=== PATIENT | female | born 1950 | race Caucasian/White ===

== ENCOUNTER → 2018-03-22 10:18 | Outpatient (CLI) | payer MEDICARE, OTHER, SELFPAY ==
[2018-03-22 10:31] LABS: Bacteria Urine None Seen; RBC Urine None Seen (0-5/HPF); WBC Urine None Seen (0-5/HPF)
[2018-03-22 11:24] LABS: Appearance Urine UA CLEAR; Bilirubin Urine UA NEGATIVE (NEGATIVE); Color Urine UA YELLOW; Glucose Urine UA NEGATIVE (Normal); Ketones Urine UA NEGATIVE (NEGATIVE); Leukocyte Esterase Urine UA NEGATIVE (NEGATIVE); Nitrite Urine UA Negative (Negative); Occult Blood Urine UA NEGATIVE (Negative); Protein Urine UA NEGATIVE (Negative); Urobilinogen Urine UA 0.2 E.U./dL (0.2); pH Urine UA 5.5 (4.5-8.0)
[2018-03-22 11:34] LABS: Culture Indicated Urine Cult Not Indicated; Urine Comments Microscopic Normal
[2018-03-22 11:54] LABS: Hematocrit 37.3 % (36-46); Hemoglobin 12.7 g/dL (12.0-16.0); Mean Corpuscular HGB Conc 33.9 % (30-36); Mean Corpuscular Hemoglobin 30.3 PG (26-34); Mean Corpuscular Volume 89.4 fL (80-100); Platelet Count 238 X10^3/uL (150-400); Red Blood Cell Count 4.18 X10^6/uL (4.0-5.2); Red Cell Distribution Width 13.3 % (11.6-14.8); White Blood Cell Count 4.9 X10^3/uL (4.5-11.0)
[2018-03-22 12:33] LABS: Alanine Aminotransferase 25 IU/L (9-52); Albumin Globulin Ratio 1.4 (1.0-2.8); Alkaline Phosphatase 55 U/L (38-126); Aspartate Aminotransferase 30 IU/L (14-36); BUN Creatinine Ratio 28.6 (6-22); Bilirubin Total 0.5 mg/dL (0.2-1.3); Bilirubin Unconjugated 0.2 mg/dL (0.0-1.1); Blood Urea Nitrogen 20 mg/dL (7-17); Calcium 9.6 mg/dL (8.4-10.2); Carbon Dioxide 29 mmol/L (22-32); Chloride 103 mmol/L (98-107); Cholesterol 227 mg/dL (140-199); Estimated Glomerular Filt Rate > 60.0 mL/min (>60); Globulin 2.8 g/dL (1.7-4.1); Glucose 94 mg/dL (80-110); HDL Cholesterol 93 mg/dL (40-60); HEMOLYSIS < 15 (0-50); LDL Cholesterol Calculated 120 mg/dL (<100); Potassium 4.1 mmol/L (3.4-5.1); Sodium 140 mmol/L (137-145); Total Protein 6.8 g/dL (6.3-8.2); Triglycerides 69 mg/dL (35-150)
[2018-03-22 12:42] LABS: Hemoglobin A1C% w Est Avg Glu 5.5 % (4.0-6.0)
[2018-03-22 12:52] LABS: TSH w/ Reflex to FT4 0.13 uIU/mL (0.47-4.68)
[2018-03-22 13:18] LABS: Free T4, Direct Thyroxine 1.73 ng/dL (0.78-2.19)
[2018-03-22 14:18] LABS: Neutrophils Absolute Manual 2352 /uL (3000-5900); Total Cells Counted 100
== END ==
PROVIDERS: Family Provider Family Medicine; PCP Family Medicine; Visit Provider Nurse Practitioner Family
DX: M25.471 Effusion, right ankle (principal); M25.472 Effusion, left ankle; R60.0 Localized edema
CPT/HCPCS: 36415; 80048; 80061; 80076; 81001; 82565; 83036; 84439; 84443; 84520; 85025

== ENCOUNTER → 2018-08-08 11:46 | Outpatient (CLI) | payer MEDICARE, OTHER, SELFPAY ==
[2018-08-08 13:54] LABS: Thyroid Stimulating Hormone 0.69 uIU/mL (0.47-4.68)
== END ==
PROVIDERS: PCP Family Medicine; Visit Provider Family Medicine
DX: E03.9 Hypothyroidism, unspecified (principal)
CPT/HCPCS: 36415; 84443

== ENCOUNTER → 2018-11-22 15:33 | Outpatient (CLI) | payer MEDICARE, OTHER, SELFPAY | PROVIDERS: Family Provider Family Medicine; PCP Family Medicine; Visit Provider Physician Assistant | DX: R68.89 Other general symptoms and signs (principal) | CPT/HCPCS: 87400 ==

== ENCOUNTER → 2019-08-06 11:40 | Outpatient (CLI) | payer MEDICARE, OTHER, SELFPAY ==
--- NOTE | 2019-08-06 11:42 | DI.RAD.S_ITS ---
PROCEDURE: XR HIP W PEL IF DONE LT 2V INDICATIONS: Left hip pain TECHNIQUE: 2 views of the hip were acquired. COMPARISON: None. FINDINGS: Bones: No fractures or dislocations. No suspicious bony lesions. The visualized pelvic ring appears intact. There are mild degenerative changes of the left hip joint as evidenced by periarticular sclerosis and osteophyte formation. Soft tissues: No suspicious soft tissue calcifications or masses. IMPRESSION: Mild degenerative changes of the left hip joint. Dictated by: Christian Abdullahi M.D. on 08/06/2019 at 14:32 Approved by: Christian Abdullahi M.D. on 08/06/2019 at 14:34
== END ==
PROVIDERS: PCP Family Medicine; Visit Provider Family Medicine
DX: M25.552 Pain in left hip (principal)
CPT/HCPCS: 73502

== ENCOUNTER 2019-11-25 10:26 | Emergency (ER) | payer MEDICARE, OTHER, SELFPAY ==
[2019-11-25 10:27] VITALS: BP 155/70; PULSE 77; RESP 16; TEMP 36.7; O2SAT 100; BMI 31.8
--- NOTE | 2019-11-25 10:41 | ED_ITS ---
HPI - Chest Pain General Chief Complaint: Chest Pain Stated Complaint: Chest Pain Time Seen by Provider: 11/25/19 10:39 Source: patient Mode of arrival: Ambulatory Limitations: no limitations History of Present Illness HPI narrative: 69-year-old female here for evaluation of left upper quadrant/left lower chest discomfort. She states that it started yesterday. Has been consistent for greater than 12 hours now. She states that it does feel somewhat better with stretching. Has had a bowel movement since the onset of the symptoms which has not changed any of her symptoms. No urinary symptoms. No nausea vomiting. Does have a history of pleurisy and pericarditis. She states this does not feel like that. No fevers. No sore throat. Has not tried anything for symptoms prior to arrival. Related Data Home Medications Medication Instructions Recorded Confirmed omeprazole 20 mg capsule,delayed 20 mg PO DAILY 03/11/18 11/25/19 release indomethacin 25 mg PO TIDP PRN 11/25/19 11/25/19 Previous Rx's Medication Instructions Recorded levothyroxine 112 mcg tablet See Rx Instructions .ROUTE 10/20/19 .COMPLEX #90 tab Allergies Allergy/AdvReac Type Severity Reaction Status Date / Time erythromycin base Allergy Unknown Verified 11/25/19 11:42 [ERYTHROMYCIN BASE] Review of Systems Constitutional Constitutional: Denies fever(s) and Denies headache(s) ENT Ears, Nose, Mouth, and Throat: Denies headache(s) Cardiovascular Cardiovascular: Reports chest pain, Denies edema, Denies leg ulcers, Denies leg edema, Denies dyspnea and Denies dyspnea on exertion Respiratory Respiratory: Denies dyspnea and Denies dyspnea on exertion Gastrointestinal Gastrointestinal: Reports abdominal pain (Left upper quadrant), Denies change in stool character, Denies nausea and Denies vomiting Musculoskeletal Musculoskeletal: Denies back pain, Denies myalgias and Denies arthralgias Integumentary/Breasts Skin/Breast: Denies lesions and Denies rash Neurologic Neurologic: Denies behavioral changes and Denies headache(s) Psychiatric Psychiatric: Denies behavioral changes Hematologic/Lymphatic Hematologic/Lymphatic: Denies easy bleeding and Denies easy bruising Patient History Medical History Hypothyroidism (acquired) (Inactive) Social History Smoking Status: Never smoker alcohol intake: current (5-6 glasses of red wine weekly) Smoking Status: Never smoker alcohol intake frequency: holidays/special occasions only Substance Use Type: does not use Exam Initial Vital Signs Initial Vital Signs: Vital Signs Temperature 98.0 F 11/25/19 10:27 Pulse Rate 77 11/25/19 10:27 Respiratory Rate 16 11/25/19 10:27 Blood Pressure 155/70 H 11/25/19 10:27 Pulse Oximetry 100 11/25/19 10:27 Const General: cooperative, comfortable, well developed and well groomed Limitations: mental status not altered HENWY Head: normal to inspection and normocephalic Resp Effort & Inspection: normal respiratory effort Auscultation: clear to auscultation bilaterally Cardio Rate: regular rate Rhythm: regular rhythm GI Inspection: non-distended Palpation: soft, No firm and tender (Mild tenderness left upper quadrant) Back/Spine/Pelvis Back: No CVA tenderness Skin Lesions: no lesions Rashes: no rashes Neuro General: alert and awake Cognition: normal cognition Speech: speech normal Extrem General: normal to inspection, capillary refill normal and No edema Psych Appearance: grossly normal and well kempt Scores HEART Score Heart Score history: Slightly Suspicious Heart Score EKG: Non-Specific repolarization disturbance Heart Score Age: > or = 65 years old Heart Score risk factors: No known risk factors Heart Score troponin: < or = to normal limit Heart Score Total: 3 Course Orders Ordered: ED Orders 11/25/19 10:35 Complete Blood Count AUTO DIFF Stat Comprehensive Metabolic Panel Stat Lipase Stat Partial Thromboplastin Time Stat Prothrombin Time INR Stat Troponin I Stat 11/25/19 10:42 XR chest 1V Stat EKG-12 Lead Stat Vital Signs Vital signs: Vital Signs - 8 hr 11/25/19 10:27 11/25/19 11:32 11/25/19 11:46 Temperature 98.0 F Pulse Rate 77 58 L 60 Respiratory Rate 16 15 12 Blood Pressure 155/70 H Blood Pressure [Left Arm] 128/61 120/58 L Pulse Oximetry 100 98 MDM - Chest Pain Lab Data Attestation: I reviewed the patient's lab results. Result diagrams: 11/25/19 10:35 11/25/19 10:35 Labs: Lab Results 11/25/19 11/25/19 11/25/19 Range/Units 10:35 10:35 10:35 WBC 5.7 (4.5-11.0) X10^3/uL RBC 4.38 (4.0-5.2) X10^6/uL Hgb 13.4 (12.0-16.0) g/dL Hct 40.4 (36-46) % MCV 92.2 (80-100) fL MCH 30.6 (26-34) PG MCHC 33.2 (30-36) % RDW 14.3 (11.6-14.8) % Plt Count 251 (150-400) X10^3/uL Neut % (Auto) 50.0 (50-75) % Lymph % (Auto) 39.9 (25-40) % Lipscomb % (Auto) 6.7 (3-14) % Eos % (Auto) 2.8 (2-4) % Baso % (Auto) 0.6 (0-2) % Neut # (Auto) 2900 (6231-6717) /uL Lymph # (Auto) 2300 (9658-2255) /uL Lipscomb # (Auto) 400 (0-900) /uL Eos # (Auto) 200 (0-450) /uL Baso # (Auto) 0 (0-100) /uL PT 11.4 (10.1-12.7) SECONDS INR 1.0 (0.9-1.3) APTT 30 (26.4-36.2) SECONDS Sodium 138 (137-145) mmol/L Potassium 4.2 (3.4-5.1) mmol/L Chloride 105 (98-107) mmol/L Carbon Dioxide 28 (22-32) mmol/L BUN 21 H (7-17) mg/dL Creatinine 0.89 (0.52-1.04) mg/dL Estimated GFR > 60.0 (>60) mL/min BUN/Creatinine Ratio 23.6 H (6-22) Glucose 93 (80-110) mg/dL Calcium 9.7 (8.4-10.2) mg/dL Total Bilirubin 0.5 (0.2-1.3) mg/dL AST 31 (14-36) IU/L ALT 21 (<35) IU/L Alkaline Phosphatase 58 (38-126) U/L Troponin I < 0.012 (0.01-0.034) ng/mL Total Protein 7.5 (6.3-8.2) g/dL Albumin 4.3 (3.5-5.0) g/dL Globulin 3.2 (1.7-4.1) g/dL Albumin/Globulin Ratio 1.3 (1.0-2.8) Lipase 82 (23-300) U/L Imaging Data Chest x-ray: Radiologist's Impression: [address] [address] XRay Report Signed Patient: Tami Batista KMR#: [id number] : 8Acct:[id number] Age/Sex: 69 / FDate of Service: 11/25/19 Loc: ED Accession Number: [id number] Procedure: XR chest 1V Ordering Provider: Gaston Carvajal D.O. PROCEDURE: XR CHEST 1V INDICATIONS: Chest pain TECHNIQUE: One view of the chest was acquired. COMPARISON: [facility], , CHEST 1 VIEW, 01/02/2017, 17:18. FINDINGS: Surgical changes and devices: None. Lungs and pleura: Lungs are clear. No pleural effusions or pneumothorax. Mediastinum: Mediastinal contours appear normal. Heart size is normal. Bones and chest wall: No suspicious bony lesions. Overlying soft tissues appear unremarkable. IMPRESSION: No acute cardiopulmonary findings. Dictated by: Kaylyn Gutierrez M.D. on 11/25/2019 at 11:06 Approved by: Kaylyn Gutierrez M.D. on 11/25/2019 at 11:06 ECG Data Attestation: I personally reviewed and interpreted this ECG as follows: Prior ECG tracings: not available for review Interpretation: Sinus rhythm Ventricular rate is 65 Normal axis Normal QRS Nonspecific ST T wave changes MDM Narrative Medical decision making narrative: Chest x-ray was negative, EKG shows nonspecific changes. Has a low risk heart score. Troponin is negative greater than 6 hours after the onset of the symptoms. Her symptoms are also worse with palpation and better when she stretched. Upon further questioning patient states she has been taking ibuprofen more often recently over the past several days/weeks for a hip symptom. She is currently on omeprazole. We did discuss that potentially this could be causing her issues. We did discuss adding other [id number] medicines like Tums to her diet and how to take it with regard to the members off. Will have her contact her primary provider. She was given return precautions and follow-up instructions. She expressed understanding and agreement. Discharge Plan Departure Patient Disposition: Home Clinical Impression: Atypical chest pain Instructions: DI for Atypical Chest Pain Activity Restrictions/Additional Instructions: Recommend you continue all of your medications as directed. Use the Tums like we discussed. Contact your primary provider for follow-up. Return to the emergency department for any new or worsening symptoms Prescriptions: No Action omeprazole 20 mg capsule,delayed release(DR/EC) 20 mg PO DAILY RF: 0 levothyroxine 112 mcg tablet See Rx Instructions .ROUTE .COMPLEX Qty: 90 RF: 0 indomethacin 25 MG capsule 25 mg PO TIDP PRN (Reason: Pain (Scale Score 1-3)) RF: 0 Referrals: Aram Fournier MD [Primary Care Provider] -
[2019-11-25 10:51] LABS: Add Manual Diff / Slide Review NO; Basophils Absolute Auto 0 /uL (0-100); Basophils Percent Auto 0.6 % (0-2); Eosinophils Absolute Auto 200 /uL (0-450); Eosinophils Percent Auto 2.8 % (2-4); Hematocrit 40.4 % (36-46); Hemoglobin 13.4 g/dL (12.0-16.0); Lymphocytes Absolute Auto 2300 /uL (1100-4500); Lymphocytes Percent Auto 39.9 % (25-40); Mean Corpuscular HGB Conc 33.2 % (30-36); Mean Corpuscular Hemoglobin 30.6 PG (26-34); Mean Corpuscular Volume 92.2 fL (80-100); Monocytes Absolute Auto 400 /uL (0-900); Monocytes Percent Auto 6.7 % (3-14); Neutrophils Absolute Auto 2900 /uL (1500-7000); Platelet Count 251 X10^3/uL (150-400); Red Blood Cell Count 4.38 X10^6/uL (4.0-5.2); Red Cell Distribution Width 14.3 % (11.6-14.8); White Blood Cell Count 5.7 X10^3/uL (4.5-11.0)
[2019-11-25 10:58] LABS: Prothrombin Time 11.4 SECONDS (10.1-12.7)
[2019-11-25 11:01] LABS: PTT Partial Thromboplastin Tim 30 SECONDS (26.4-36.2)
[2019-11-25 11:04] LABS: Alanine Aminotransferase 21 IU/L (<35); Albumin 4.3 g/dL (3.5-5.0); Albumin Globulin Ratio 1.3 (1.0-2.8); Alkaline Phosphatase 58 U/L (38-126); Aspartate Aminotransferase 31 IU/L (14-36); BUN Creatinine Ratio 23.6 (6-22); Bilirubin Total 0.5 mg/dL (0.2-1.3); Blood Urea Nitrogen 21 mg/dL (7-17); Calcium 9.7 mg/dL (8.4-10.2); Carbon Dioxide 28 mmol/L (22-32); Chloride 105 mmol/L (98-107); Estimated Glomerular Filt Rate > 60.0 mL/min (>60); Globulin 3.2 g/dL (1.7-4.1); Glucose 93 mg/dL (80-110); HEMOLYSIS 34 (0-50); Lipase 82 U/L (23-300); Potassium 4.2 mmol/L (3.4-5.1); Sodium 138 mmol/L (137-145); Total Protein 7.5 g/dL (6.3-8.2)
[2019-11-25 11:16] LABS: Troponin I < 0.012 ng/mL (0.01-0.034)
[2019-11-25 11:32] VITALS: BP 128/61; PULSE 58; RESP 15; O2SAT 98
[2019-11-25 11:46] VITALS: BP 120/58; PULSE 60; RESP 12
[2019-11-25 12:24] VITALS: BP 124/58; PULSE 64; RESP 22; O2SAT 98
== END 2019-11-25 12:35 | disposition home or self-care (01) ==
PROVIDERS: Emergency Provider Emergency Medicine; PCP Family Medicine
DX: R07.89 Other chest pain (principal); R10.12 Left upper quadrant pain
CPT/HCPCS: 36415; 71045; 80053; 83690; 84484; 85025; 85610; 85730; 93005; 99284

== ENCOUNTER → 2019-12-06 16:28 | Outpatient (ROUT) | payer MEDICARE, OTHER, SELFPAY ==
[2019-12-08 08:41] LABS: COVID19 Sendout Not Detected (Not Detected)
== END ==
PROVIDERS: PCP Family Medicine; Visit Provider Physician Assistant
DX: R05 Cough (principal)
CPT/HCPCS: 87635

== ENCOUNTER → 2020-01-16 08:06 | Outpatient (CLI) | payer MEDICARE, OTHER, SELFPAY ==
[2020-01-16 09:14] LABS: Add Manual Diff / Slide Review NO; Basophils Absolute Auto 100 /uL (0-100); Basophils Percent Auto 1.4 % (0-2); Eosinophils Absolute Auto 200 /uL (0-450); Eosinophils Percent Auto 2.5 % (2-4); Hemoglobin 13.6 g/dL (12.0-16.0); Lymphocytes Absolute Auto 2200 /uL (1100-4500); Lymphocytes Percent Auto 34.1 % (25-40); Mean Corpuscular HGB Conc 33.1 % (30-36); Mean Corpuscular Hemoglobin 30.4 PG (26-34); Mean Corpuscular Volume 91.8 fL (80-100); Monocytes Absolute Auto 400 /uL (0-900); Neutrophils Absolute Auto 3500 /uL (1500-7000); Platelet Count 234 X10^3/uL (150-400); Red Blood Cell Count 4.46 X10^6/uL (4.0-5.2); Red Cell Distribution Width 13.5 % (11.6-14.8); White Blood Cell Count 6.3 X10^3/uL (4.5-11.0)
[2020-01-16 09:46] LABS: Alanine Aminotransferase 19 IU/L (<35); Albumin 4.3 g/dL (3.5-5.0); Albumin Globulin Ratio 1.3 (1.0-2.8); Alkaline Phosphatase 64 U/L (38-126); Aspartate Aminotransferase 29 IU/L (14-36); Bilirubin Total 0.4 mg/dL (0.2-1.3); Blood Urea Nitrogen 17 mg/dL (7-17); Carbon Dioxide 27 mmol/L (22-32); Chloride 103 mmol/L (98-107); Cholesterol 280 mg/dL (140-199); Estimated Glomerular Filt Rate > 60.0 mL/min (>60); Globulin 3.2 g/dL (1.7-4.1); Glucose 91 mg/dL (80-110); HDL Cholesterol 105 mg/dL (40-60); HEMOLYSIS < 15 (0-50); LDL Cholesterol Calculated 156 mg/dL (<100); Potassium 4.3 mmol/L (3.4-5.1); Sodium 138 mmol/L (137-145); Total Protein 7.5 g/dL (6.3-8.2); Triglycerides 96 mg/dL (35-150)
[2020-01-16 10:14] LABS: Thyroid Stimulating Hormone 2.06 uIU/mL (0.47-4.68)
== END ==
PROVIDERS: PCP Family Medicine; Referring Provider Family Medicine; Visit Provider Family Medicine
DX: E03.9 Hypothyroidism, unspecified (principal); R60.9 Edema, unspecified
CPT/HCPCS: 36415; 80053; 80061; 84443; 85025

== ENCOUNTER → 2020-02-03 07:47 | Outpatient (CLI) | payer MEDICARE, OTHER, SELFPAY ==
--- NOTE | 2020-02-03 07:52 | DI.MG.S_ITS ---
BILATERAL DIGITAL SCREENING MAMMOGRAM 3D/2D WITH CAD: 02/03/2020 CLINICAL: Routine screening. Comparison is made to exams dated: 01/28/2014 mammogram and 02/06/2014 mammogram - [facility]. There are scattered fibroglandular elements in both breasts. Current study was also evaluated with a Computer Aided Detection (CAD) system. No significant masses, calcifications, or other findings are seen in either breast. There has been no significant interval change. IMPRESSION: NEGATIVE There is no mammographic evidence of malignancy. A 1 year screening mammogram is recommended. This exam was interpreted at Station ID: [id number]. NOTE: For mammograms, a report in lay terms will be sent to the patient. Approximately 15% of breast malignancies will not be visualized mammographically. In the management of a palpable breast mass, a negative mammogram must not discourage biopsy of a clinically suspicious lesion. Electronically Signed By: Heidi canales/neelima:02/03/2020 10:21:48 letter sent: Normal Exam ACR BI-RADS Category 1: Negative [id number]
--- NOTE | 2020-02-03 07:52 | DI.ECHO.S_ITS ---
[facility] +---------+ : : [address] : : : : [id number] : : : : Phone: [phone]+ Echocardiogram Report + + :Name: DG SR Study Date: 02/03/2020 Height: 63 in : :[facility] Weight: 180 lb : : Gender: Female BSA: 1.8 m2 : :: 1950 Age: 69 yrs BP: 110/64 mmHg: :Reason For Study: CHEST PAIN : :Ordering Physician: Dr. Chiu : :Shantanu Performed By: Anna Forrester : :Referring: FELIPA ROONEY : + + Interpretation Summary The left ventricular ejection fraction is normal. No regional wall motion abnormalities. The right ventricle is normal in size and function. The right ventricular systolic pressure is estimated to be at least 21 mmHg based on an estimated right atrial pressure of 3 mm Hg. No hemodynamically significant valvular abnormalities. No prior echocardiogram for comparison. Procedure: A two-dimensional transthoracic echocardiogram with color flow and Doppler was performed. There is no prior echocardiogram noted for this patient. The study quality was technically adequate. The patient was in sinus bradycardia with heart rates between 55-60 bpm during the exam. Left Ventricle: The left ventricle is normal in size. There is normal left ventricular wall thickness. There is mild proximal septal thickening noted. The ejection fraction is estimated to be 60-65%. The left ventricular ejection fraction is normal. Left ventricular wall motion is normal. Diastolic parameters suggest probable normal left ventricular diastolic function and normal filling pressures. Right Ventricle: The right ventricle is normal in size and function. Atria: The left atrial size is normal. Right atrial size is normal. There is no Doppler evidence for an interatrial shunt. Mitral Valve: The mitral valve is normal in structure and function. There is mild mitral annular calcification. There is no mitral regurgitation noted. Aortic Valve: The aortic valve is normal in structure and function. There is discrete nodular thickening of the non- coronary cusp. No aortic regurgitation is present. Tricuspid Valve: The tricuspid valve is normal in structure and function. There is mild tricuspid regurgitation. The right ventricular systolic pressure is estimated to be at least 21 mmHg based on an estimated right atrial pressure of 3 mm Hg. Pulmonic Valve: The pulmonic valve is not well seen, but is grossly normal. There is trace pulmonic regurgitation. Great Vessels: The aortic root is normal size. The dimensions of the ascending aorta are normal. The pulmonary artery is normal size. The IVC is of normal diameter and collapses greater than 50% with a sniff. This suggests a low right atrial pressure of 3 mm Hg. Pericardium/ Pleura There is no pericardial effusion. There is no pleural effusion. MMode/2D Measurements & Calculations LVIDd: 4.4 cm LVOT diam: 2.0 cm LVIDs: 3.1 cm Ao root diam: 3.0 cm FS: 30.9 % asc Aorta Diam: 3.2 cm EPSS: 0.34 cm Ao Arch Diam (Prox Trans): 2.7 cm IVSd: 1.0 cm LVPWd: 1.0 cm LV adhikari. diameter/BSA (cm/m^2): 2.4 LV sys. diameter/BSA (cm/m^2): 1.7 LA A2 area: 19.1 cm2 RA long axis: 5.4 cm LA A4 area: 20.3 cm2 RA area: 15.7 cm2 LA length (vol): 5.4 cm RA vol: 38.9 ml LA vol: 61.4 ml RA : 21.0 ml/m2 LA vol index: 33.2 ml/m2 IVC diam: 1.8 cm RVD1 (basal): 3.1 cm TAPSE: 2.1 cm Doppler Measurements & Calculations Ao V2 max: 109.1 cm/sec LVOT Max Jim: 74.8 cm/sec Ao V2 mean: 68.3 cm/sec LV V1 max P.2 mmHg Ao max P.8 mmHg LV V1 VTI: 18.3 cm Ao mean P.2 mmHg TETE(I,D): 2.2 cm2 Ao V2 VTI: 25.2 cm TETE(V,D): 2.1 cm2 sev ratio: 0.73 TETE indexed to BSA (cm^2/m^2): 1.2 MV E max jim: 81.3 cm/sec TR max jim: 215.4 cm/sec MV A max jim: 72.3 cm/sec TR max P.6 mmHg MV E/A: 1.1 PA V2 max: 69.0 cm/sec Med Peak E' Jim: 6.5 cm/sec PA V2 mean: 45.5 cm/sec E/E' med: 12.6 PA mean P.97 mmHg Lat Peak E' Jim: 8.6 cm/sec E/E' lat: 9.5 E/e' average: 11.0 MV dec time: 0.22 sec SV(LVOT): 55.4 ml Electronically signed by: Lavon Campos M.D. on Reading Physician:02/03/2020 09:29 AM
== END ==
PROVIDERS: PCP Family Medicine; Referring Provider Family Medicine; Visit Provider Family Medicine
DX: Z12.31 Encounter for screening mammogram for malignant neoplasm of breast (principal); I07.1 Rheumatic tricuspid insufficiency; R07.9 Chest pain, unspecified
CPT/HCPCS: 77063; 77067; 93306

== ENCOUNTER → 2020-02-08 10:47 | Outpatient (CLI) | payer MEDICARE, OTHER, SELFPAY ==
[2020-02-09 03:39] LABS: COVID19 Sendout Not Detected (Not Detect)
== END ==
PROVIDERS: PCP Family Medicine; Visit Provider Physician Assistant
DX: Z01.812 Encounter for preprocedural laboratory examination (principal)
CPT/HCPCS: 87635

== ENCOUNTER → 2020-02-11 13:45 | Outpatient (CLI) | payer MEDICARE, OTHER, SELFPAY ==
--- NOTE | 2020-02-11 13:46 | DI.NM.S_ITS ---
PROCEDURE: NM TOM PERF SPECT REST & STR Rest and exercise myocardial perfusion SPECT with gated imaging and ejection fraction RADIOPHARMACEUTICAL: 25.7 mCi Tc-99m sestamibi IV at rest and 26.2 mCi Tc-99m sestamibi IV at peak exercise. A two day-protocol was performed. INDICATIONS: chest pain TECHNIQUE: Radiopharmaceutical was injected at peak stress test, and also at rest. SPECT images were obtained. SPECT myocardial perfusion images were displayed in short axis, horizontal long axis, and vertical long axis views. Gated images were reviewed using [employer] software. COMPARISON: None. CARDIAC STRESS: A standard Arvind treadmill exercise tolerance test was performed by the patient under the supervision of an attending staff. The patient exercised for 8 minutes and 42 seconds; functional aerobic impairment (NIRU) is -20%. Hemodynamic data: There is normal blood pressure and heart rate response to exercise stress. Patient achieved 109% of maximum predicted heart rate at peak exercise. Symptoms: Patient denied chest pain during exercise. EKG: No diagnostic EKG changes of ischemia; no ectopy. FINDINGS: Raw data: There is good myocardial labeling by radiotracer. No significant motion artifacts. Oszx-yt-utryo ratio is 0.34 (normal is less than 0.38 for sestamibi tracer, and less than 0.50 for thallium tracer). Left ventricle function: Gated images demonstrate normal left ventricle wall thickening. No segmental wall motion abnormality. No transient ischemic dilation; TID is 1.0 (normal less than 1.3). The left ventricle resting end-diastolic volume is 86 mL. Left ventricle stress ejection fraction is 84%; normal values are above 45%. Myocardial perfusion: There is normal distribution of activity in the left and right ventricular myocardium. No fixed or reversible perfusion defects. IMPRESSION: Low risk, normal treadmill nuclear stress test. 1) No perfusion evidence of ischemia or infarction. 2) Normal left ventricular size, wall motion, and systolic function (EF post stress 84%). 3) No ECG evidence of ischemia. 4) No angina during the study. 5) Good exercise tolerance (10.1 METs, NIRU -20%). Target heart rate achieved. Appropriate hemodynamic response to exercise. 6) No prior nuclear stress test available for comparison. Dictated by: Florina العلي MD on 02/12/2020 at 16:52 Approved by: Florina العلي MD on 02/12/2020 at 16:55
--- NOTE | 2020-02-11 14:51 | PM.TREADMILL ---
Cardiac Stress Test Report Referral & Results Date Patient Seen: 02/11/20 Time Patient Seen: 14:30 Requesting provider: Aram Fournier Indication: Chest pain Rest ECG: Normal sinus rhythm Procedure Note: Today following both written and verbal informed consent the patient was exercised according to a standard Arvind protocol patient went for a total of 8 minutes 42 seconds achieving a maximum heart rate of 163 maximum systolic blood pressure of 160. This is approximately 10.1 METs. Exercise was terminated at this point because of fatigue. Patient was also given Cardiolite through a previously started Hep-Lock IV by the test engineer nuclear equipment approximately 1 minute prior to the cessation of exercise. Normal hemodynamic response to exercise. Normal exercise capacity (-20% NIRU). No change in rhythm. No ST deviations, though baseline artifact made interpretation difficult. No ST deviations seen on immediate post exercise tracing. No signs or symptoms of angina; presenting symptom was not reproduced with exercise. Impression: Low probability for ischemia. Will await perfusion imaging. Please note: Actual ECG tracings can be found in the PACS system.
== END ==
PROVIDERS: PCP Family Medicine; Referring Provider Family Medicine; Visit Provider Family Medicine
DX: R07.9 Chest pain, unspecified (principal)
CPT/HCPCS: 78452; 93016; 93017; 93018; A9502

== ENCOUNTER → 2020-03-22 07:39 | Outpatient (CLI) | payer MEDICARE, OTHER, SELFPAY ==
[2020-03-22 09:12] LABS: Cholesterol 223 mg/dL (140-199); Triglycerides 56 mg/dL (35-150)
[2020-03-22 09:24] LABS: HDL Cholesterol 111 mg/dL (40-60); LDL Cholesterol Calculated 101 mg/dL (<100)
== END ==
PROVIDERS: PCP Family Medicine; Referring Provider Family Medicine; Visit Provider Family Medicine
DX: E78.2 Mixed hyperlipidemia (principal)
CPT/HCPCS: 36415; 80061

== ENCOUNTER → 2020-04-06 17:04 | Outpatient (CLI) | payer MEDICARE, OTHER, SELFPAY ==
--- NOTE | 2020-04-06 17:07 | DI.RAD.S_ITS ---
PROCEDURE: XR KNEE LT 3V INDICATIONS: ground level fall; bilat knee pain TECHNIQUE: 3 views of the knee were acquired. COMPARISON: None. FINDINGS: Bones: No fractures or dislocations. No suspicious bony lesions. There is a moderate degree of osteoarthritis involving the medial compartment and the lateral facet of the patellofemoral joint. Soft tissues: No joint effusion. No suspicious soft tissue calcifications. IMPRESSION: Moderate osteoarthritis as discussed without trauma, no joint effusion or intra-articular loose body seen. Dictated by: Marco Antonio Hugo M.D. on 04/07/2020 at 10:09 Approved by: Marco Antonio Hugo M.D. on 04/07/2020 at 10:10
--- NOTE | 2020-04-06 17:07 | DI.RAD.S_ITS ---
PROCEDURE: XR KNEE RT 3V INDICATIONS: ground level fall; bilat knee pain TECHNIQUE: 3 views of the knee were acquired. COMPARISON: None. FINDINGS: Bones: No fractures or dislocations. No suspicious bony lesions. Mild osteoarthritis at the medial compartment and the lateral facet of the patellofemoral joint. No effusion or loose body found. Soft tissues: No joint effusion. No suspicious soft tissue calcifications. IMPRESSION: No trauma seen, mild degenerative osteoarthritis as discussed. The degree of degeneration is slightly less than that seen at the left knee on imaging obtained same day. Dictated by: Marco Antonio Hugo M.D. on 04/07/2020 at 10:10 Approved by: Marco Antonio Hugo M.D. on 04/07/2020 at 10:12
== END ==
PROVIDERS: PCP Family Medicine; Referring Provider Family Medicine; Visit Provider Family Medicine
DX: M25.561 Pain in right knee (principal); M25.562 Pain in left knee; M17.0 Bilateral primary osteoarthritis of knee
CPT/HCPCS: 73562

== ENCOUNTER → 2020-05-11 07:33 | Outpatient (CLI) | payer MEDICARE, OTHER, SELFPAY ==
[2020-05-11 09:08] LABS: Cholesterol 232 mg/dL (140-199); Triglycerides 87 mg/dL (35-150)
[2020-05-11 09:18] LABS: HDL Cholesterol 113 mg/dL (40-60); LDL Cholesterol Calculated 102 mg/dL (<100)
== END ==
PROVIDERS: PCP Family Medicine; Referring Provider Family Medicine; Visit Provider Family Medicine
DX: E78.2 Mixed hyperlipidemia (principal)
CPT/HCPCS: 36415; 80061

== ENCOUNTER → 2020-05-15 07:42 | Outpatient (CLI) | payer MEDICARE, OTHER, SELFPAY ==
--- NOTE | 2020-05-15 07:44 | DI.MRI.S_ITS ---
PROCEDURE: MR KNEE LT WO CON INDICATIONS: Unstable knee TECHNIQUE: Noncontrast sagittal PD fast spin echo and T2 fast spin echo with fat saturation, sagittal 3-D FLASH with fat saturation; coronal T1 spin echo and PD fast spin echo with fat saturation, and axial PD fast spin echo with fat saturation through the knee. COMPARISON: None. FINDINGS: Image quality: Excellent. Menisci: Complex oblique tear involving body/posterior horn of medial meniscus is seen extending to inferior articulating surface. There is no focal lateral meniscal tear. The meniscal root ligaments appear intact. Cruciate ligaments: The anterior and posterior cruciate ligaments appear intact. Medial structures: There is low-grade MCL sprain. The posterior oblique ligament, semimembranosus tendon insertions, oblique popliteal ligament, and meniscocapsular junction appear intact. Visualized portions of the pes anserinus tendons appear normal. No abnormal bursal fluid. Lateral structures: The lateral collateral ligament, long and short heads of the biceps femoris tendon appear intact. The popliteus tendon appears normal; the popliteofibular ligament appears intact. The posterosuperior and anteroinferior popliteomeniscal fascicles appear intact. The arcuate and fabellofibular ligaments appear intact, on either side of the lateral inferior geniculate artery. Iliotibial band appears normal. Anterior structures: The quadriceps and patellar tendons appear intact. Patellar alignment is normal. No femoral trochlear dysplasia or ventral trochlear prominence. No edema in the infrapatellar fat pad. Bones and cartilage: No bone marrow contusions or fractures. Mild tricompartmental osteoarthritis and chondromalacia is seen more prominent in medial femoral tibial compartment. Joint space: There is small to moderate amount of joint fluid. Tiny popliteal cyst is seen.. Normal appearing synovial plicae are incidentally noted. IMPRESSION: 1. Complex oblique tear involving body/posterior horn of medial meniscus extending to inferior articulating surface. No evidence of focal lateral meniscal tear. 2. Cruciate ligaments are intact. Low-grade MCL sprain. 3. Mild tricompartmental osteoarthritis and chondromalacia more prominent in medial femoral tibial compartment. Small to moderate amount of joint fluid. Tiny popliteal cyst. Dictated by: Feng Huang M.D. on 05/17/2020 at 9:15 Approved by: Feng Huang M.D. on 05/17/2020 at 9:27
== END ==
PROVIDERS: PCP Family Medicine; Referring Provider Family Medicine; Visit Provider Family Medicine
DX: M25.362 Other instability, left knee (principal); S83.232A Complex tear of medial meniscus, current injury, left knee, initial encounter; S83.412A Sprain of medial collateral ligament of left knee, initial encounter; M17.12 Unilateral primary osteoarthritis, left knee; M94.262 Chondromalacia, left knee
CPT/HCPCS: 73721

== ENCOUNTER → 2020-08-09 07:36 | Outpatient (CLI) | payer MEDICARE, OTHER, SELFPAY ==
[2020-08-09 09:04] LABS: Cholesterol 229 mg/dL (140-199); Triglycerides 67 mg/dL (35-150)
[2020-08-09 09:11] LABS: HDL Cholesterol 107 mg/dL (40-60); LDL Cholesterol Calculated 109 mg/dL (<100)
[2020-08-09 09:33] LABS: Thyroid Stimulating Hormone 0.854 uIU/mL (0.47-4.68)
== END ==
PROVIDERS: PCP Family Medicine; Referring Provider Family Medicine; Visit Provider Family Medicine
DX: E03.9 Hypothyroidism, unspecified (principal); E78.2 Mixed hyperlipidemia
CPT/HCPCS: 36415; 80061; 84443

== ENCOUNTER → 2020-10-07 14:43 | Outpatient (CLI) | payer MEDICARE, OTHER, SELFPAY ==
[2020-10-07 15:18] LABS: COVID19 -Nasal RAPID Negative (Negative)
== END ==
PROVIDERS: PCP Family Medicine; Visit Provider Family Medicine
DX: R05 Cough (principal); Z20.822 Contact with and (suspected) exposure to COVID-19
CPT/HCPCS: 87635

== ENCOUNTER → 2020-11-08 06:57 | Outpatient (CLI) | payer MEDICARE, OTHER, SELFPAY ==
[2020-11-08 09:00] LABS: BUN Creatinine Ratio 27.1 (6-22); Blood Urea Nitrogen 19 mg/dL (7-17); Calcium 9.3 mg/dL (8.4-10.2); Carbon Dioxide 30 mmol/L (22-32); Chloride 106 mmol/L (98-107); Cholesterol 219 mg/dL (140-199); Estimated Glomerular Filt Rate > 60.0 mL/min (>60); Glucose 94 mg/dL (80-110); HEMOLYSIS < 15 (0-50); Sodium 136 mmol/L (137-145); Triglycerides 79 mg/dL (35-150)
[2020-11-08 09:29] LABS: HDL Cholesterol 112 mg/dL (40-60); LDL Cholesterol Calculated 91 mg/dL (<100)
== END ==
PROVIDERS: Family Medicine; PCP Family Medicine; Referring Provider Family Medicine; Visit Provider Family Medicine
DX: E78.2 Mixed hyperlipidemia (principal)
CPT/HCPCS: 36415; 80048; 80061

== ENCOUNTER → 2020-12-22 14:56 | Outpatient (CLI) | payer MEDICARE, OTHER, SELFPAY ==
--- NOTE | 2020-12-22 14:58 | DI.RAD.S_ITS ---
PROCEDURE: XR WRIST RT MIN 3V INDICATIONS: right wrist sprain TECHNIQUE: For views of the wrist were acquired. COMPARISON: None. FINDINGS: Bones: No fractures or dislocations. No suspicious bony lesions. Scaphoid view: No trauma. Soft tissues: No suspicious soft tissue calcifications. IMPRESSION: No trauma found. Source of persistent pain after trauma is not seen. Mild degenerative osteoarthritis at the base of the 1st metacarpal. Dictated by: Marco Antonio Hugo M.D. on 12/22/2020 at 16:13 Approved by: Marco Antonio Hugo M.D. on 12/22/2020 at 16:13
== END ==
PROVIDERS: PCP Family Medicine; Referring Provider Family Medicine; Visit Provider Family Medicine
DX: M25.531 Pain in right wrist (principal); M19.041 Primary osteoarthritis, right hand; S63.501A Unspecified sprain of right wrist, initial encounter; X58.XXXA Exposure to other specified factors, initial encounter
CPT/HCPCS: 73110

== ENCOUNTER → 2021-06-01 09:28 | Outpatient (CLI) | payer MEDICARE, OTHER, SELFPAY ==
[2021-06-02 16:15] LABS: Rubeola Measles IgG > 300.0 AU/mL (Immune >16.4); Varicella IgG Antibody 1910 index (Immune >165)
[2021-06-02 16:51] LABS: Rubella Antibody IgG > 350.0 IU/mL (>15)
[2021-06-03 08:10] LABS: Hepatitis Be Antibody Negative (Negative)
[2021-06-06 10:17] LABS: Hepatitis B Surf Ab Qualitativ Non Reactive (.)
== END ==
PROVIDERS: PCP Family Medicine; Referring Provider Family Medicine; Visit Provider Family Medicine
DX: Z78.9 Other specified health status (principal)
CPT/HCPCS: 36415; 86706; 86707; 86735; 86762; 86765; 86787

== ENCOUNTER → 2021-08-30 09:13 | Outpatient (CLI) | payer MEDICARE, OTHER, SELFPAY ==
[2021-08-30 11:21] LABS: COVID19 -Nasal RAPID POSITIVE (Negative)
== END ==
PROVIDERS: PCP Family Medicine; Visit Provider Physician Assistant
DX: Z20.822 Contact with and (suspected) exposure to COVID-19 (principal)
CPT/HCPCS: 87635

== ENCOUNTER → 2021-11-09 08:58 | Outpatient (CLI) | payer OTHER, MEDICARE, SELFPAY ==
[2021-11-09 10:56] LABS: Blood Urea Nitrogen 18 mg/dL (7-17); Calcium 9.7 mg/dL (8.4-10.2); Carbon Dioxide 30 mmol/L (22-32); Chloride 104 mmol/L (98-107); Cholesterol 218 mg/dL (140-199); Estimated Glomerular Filt Rate > 60.0 mL/min (>60); Glucose 104 mg/dL (80-110); HEMOLYSIS < 15 (0-50); Potassium 4.5 mmol/L (3.4-5.1); Sodium 139 mmol/L (137-145); Triglycerides 56 mg/dL (35-150)
[2021-11-09 11:05] LABS: HDL Cholesterol 128 mg/dL (40-60); LDL Cholesterol Calculated 79 mg/dL (<100)
== END ==
PROVIDERS: PCP Family Medicine; Referring Provider Family Medicine; Visit Provider Family Medicine
DX: E78.2 Mixed hyperlipidemia (principal); R60.0 Localized edema
CPT/HCPCS: 36415; 80048; 80061

== ENCOUNTER → 2021-12-08 15:39 | Outpatient (CLI) | payer OTHER, MEDICARE, SELFPAY ==
[2021-12-08 16:49] LABS: Influenza A - CEPHEID Flu A NEGATIVE (NEGATIVE); Influenza B - CEPHEID Flu B NEGATIVE (NEGATIVE); Respiratory Syncytial Virus Negative (Negative)
[2021-12-08 16:51] LABS: COVID-19 CEPHEID PCR (VTM/NP) Negative (Negative)
== END ==
PROVIDERS: PCP Family Medicine; Visit Provider Family Medicine
DX: J01.00 Acute maxillary sinusitis, unspecified (principal); R05.9 Cough, unspecified; R07.89 Other chest pain
CPT/HCPCS: 0241U

== ENCOUNTER → 2021-12-15 12:24 | Outpatient (CLI) | payer OTHER, MEDICARE, SELFPAY | PROVIDERS: PCP Family Medicine; Referring Provider Family Medicine; Visit Provider Family Medicine | DX: R52 Pain, unspecified (principal) | CPT/HCPCS: 95886; 95910 ==

== ENCOUNTER → 2022-05-25 16:13 | Outpatient (CLI) | payer OTHER, MEDICARE, SELFPAY ==
--- NOTE | 2022-05-25 16:15 | DI.MG.S_ITS ---
BILATERAL DIGITAL SCREENING MAMMOGRAM 3D/2D WITH CAD: 05/25/2022 CLINICAL: Routine screening. Comparison is made to exams dated: 02/03/2020 mammogram, 02/06/2014 mammogram, and 01/28/2014 mammogram - [facility]. There are scattered areas of fibroglandular density in both breasts (category b / 25%-50% glandular tissue). Current study was also evaluated with a Computer Aided Detection (CAD) system. There is possible architectural distortion in the left breast posterior depth lateral region seen on the craniocaudal view only. There also is an asymmetry with grouped punctate round calcifications in the left breast at 12 o'clock posterior depth. No other significant masses, calcifications, or other findings are seen in either breast. IMPRESSION: INCOMPLETE: NEEDS ADDITIONAL IMAGING EVALUATION The possible architectural distortion in the left breast posterior depth lateral region seen on the craniocaudal view only is indeterminate. Additional views with possible ultrasound are recommended. The asymmetry in the left breast at 12 o'clock posterior depth is indeterminate. Additional views with possible ultrasound are recommended. Based on the Tyrer Cuzick model (a risk assessment model) the patient's lifetime risk is 2.6% and her 10 year risk is 2.4%. According to the ACR, ACS, and NCCN guidelines, an annual breast MRI exam along with mammogram is recommended if the patient's lifetime risk is 20% or greater. This exam was interpreted at Station ID: [id number]. NOTE: For mammograms, a report in lay terms will be sent to the patient. Approximately 15% of breast malignancies will not be visualized mammographically. In the management of a palpable breast mass, a negative mammogram must not discourage biopsy of a clinically suspicious lesion. Electronically Signed By: Néstor Hidalgo M.D., jr/neelima:05/26/2022 08:48:59 letter sent: Additional Imaging Needed ACR BI-RADS Category 0: Incomplete 3340F
== END ==
PROVIDERS: Family Provider Family Medicine; PCP Family Medicine; Referring Provider Family Medicine; Visit Provider Family Medicine
DX: Z12.31 Encounter for screening mammogram for malignant neoplasm of breast (principal); N64.89 Other specified disorders of breast; R92.8 Other abnormal and inconclusive findings on diagnostic imaging of breast
CPT/HCPCS: 77063; 77067

== ENCOUNTER 2022-05-29 15:15 | Outpatient (RCR) | payer OTHER, MEDICARE, SELFPAY ==
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
--- NOTE | 2022-04-07 12:15 | PT.OPPOC ---
Physical, Occupational & Speech Therapy At [facility] Current Diagnoses Low back pain, unspecified (04/07/22) Abnormal electromyogram [EMG] (04/07/22) Visit Care Team Role Provider Type Tyrell Mendez MD Attending Provider Physician Family Provider Primary Care Provider Referring Provider Specialty: Family Practice Address: [address] [place] [address], [facility] Email: [email or web address] Plan Of Care PT-OP-T Assessment and Plan Start: 04/03/22 17:51 Freq: Status: Active Protocol: Document 04/07/22 09:45 LRN (Rec: 04/08/22 10:12 LRN [id number]) Physical Therapy Assessment Rehab Potential Rehabilitation Potential Good Evaluation Complexity Number of Personal Factors/Comorbidities 1-2 Number of Body Systems Impaired 4 or More Clinical Presentation at Evaluation Evolving Impairments Impairments Activity Tolerance,Pain, Posture,ROM,Strength,Transfers Goals Three Impairment Decreased core/hip AB strength . Impairment Loss of core stability with MMT of LE's and hip AB is 3/5 bilaterally. Short Term Goal (STG) Improve bilateral hip AB strength to 4/5, with pt able to tolerate standing > 15 minutes, prior to needing to sit down. STG Duration 05/26/22 Mcfp Goal (LTG) Improve core stability with the pt able to play pickleball without an increase in LBP or lateral thigh pain. LTG Duration 07/07/22 Two Impairment Pain limiting function Impairment SHELLEY score is 32/100, (16/50), 20-39% impaired of score 20-39 Short Term Goal (STG) Pt will be educated in pain management techniques ( modalities and day/night proper posturing) STG Duration 05/02/22 Tool Maker Apprentice Goal (LTG) Improve SHELLEY score to 19/100, ( 8/50) or less. LTG Duration 07/07/22 One Impairment Lacks appropriate self care program Short Term Goal (STG) Pt will be educated in proper body mechanics for daily activities. STG Duration 04/28/22 Mcfp Goal (LTG) Pt will be independent in a self care HEP. LTG Duration 07/07/22 Assessment Summary Assessment Pt presents with soft tissue guarding of L/S-Sacral region with ms tightness of R LB & L upper gluteals and her sacrum is in R rotation. She has decreased core control and probably has PF weakness/ asymmetry. She appears to be hypersensitive in the lateral LE's; therefore desensitization and STM will be needed to help normalize sensation. Pt will benefit from skilled physical therapy to improve posture and trunk/ hip mobility, decrease LB/LE pain, increase core/LE strength, educate in self care methods to improve function without pain. Physical Therapy Plan Frequency and Duration Frequency of Treatment 2x/Week Plan of Care Start Date 04/08/22 Plan of Care End Date 07/07/22 Therapeutic Interventions Therapeutic Interventions Aquatic Therapy,Home Exercise Program,Joint Mobilizations, Manual Therapy,Neuromuscular Re-education,Patient/Caregiver Education,Self-Care/Home Management,Soft Tissue Mobilization,Therapeutic Activities,Therapeutic Exercises Modalities Cold Pack/Ice Massage,Electric Stimulation,Hot Packs, Ultrasound Next Visit Focus/Plan Next Note Type Treatment Note Next Visit Plan Review current condition and function, recheck spine posture (for scoliosis), trunk mobility (due to loss of information) & check hip mobility with rotation stretches (Iliopsoas) and start ex's as needed in areas of deficit. Educate pt in proper body mechnics for daily activities including transfers, & pain management techniques ( modalities and day/night proper posturing) to address STG's #1 & #2. HEP: hip AB strengthening & hip rotation stretching, trunk R rot. Manual-Correct sacral positioning and SIJ mobs if needed, desensitize/STM lateral thighs, STM of R LB/L Gluteals, ev IT Bands. Exer -Core/pelvic stab. Modalities-End MH or Ice and IFES [L5-S1]. Plan of Care Dates Plan of Care Start Date 04/08/22 Plan of Care End Date 07/07/22 Electronically Signed by: Kaylyn Herndon, PT 04/08/22 1015 If you are in agreement with this Plan of Care, please return a signed and dated copy. I have reviewed this Plan of Care and certify that the skilled therapy services above are required to meet the patient?s needs. Physician Signature Date Printed Name and Credentials Clinical Instructor Signature Printed Name and Credentials
--- NOTE | 2022-04-17 18:23 | PT.OTN ---
Current Diagnoses Low back pain, unspecified (04/17/22) Abnormal electromyogram [EMG] (04/17/22) Physical Therapy Treatment Note PT-OP-A Visit Information Start: 04/03/22 17:51 Freq: Status: Active Protocol: Document 04/17/22 09:08 LRN (Rec: 04/17/22 12:39 LRN [id number]) Out-Patient Physical Therapy Visit Information Visit Information Visit Type Treatment Note Visit Start Time 09:08 Visit Stop Time 09:59 Total Visit Minutes 51 Visit Number 2 Evaluation Information Evaluation Date 04/07/22 Precautions Precautions Arthritis, Lami 1979, Bam meniscus repair , bilateral bunionectomy , reattached L foot 1951. PT-OP-B Current Condition Start: 04/03/22 17:51 Freq: Status: Active Protocol: Document 04/17/22 09:08 LRN (Rec: 04/17/22 18:20 LRN [id number]) Current Condition History of Current Condition Onset Date ~1 yr ago Current Complaints LBP a yr ago. Recent Lateral thigh and posterior knee pain bilaterally. History of Current Condition Insidous onset of LBP & LE pain that has continued to worsen. Pt states it is not as bad as prior to her back surgery in 1979 (L4-L5 laminectomy), but she is fearful it is worsening. Chronic LBP for 20 yrs, recent pt report that EMG study showed L5-S1 lesion-ganglion interference. PT-OP-C Subjective Start: 04/03/22 17:51 Freq: Status: Active Protocol: Document 04/17/22 09:08 LRN (Rec: 04/17/22 12:39 LRN [id number]) OP-PT Subjective Patient Comments Patient Comments Brought in EMG results last week. States she is stiff, no longer pain when bending over, but she does have intermittent pain after strenuous activity and pickle ball, and feels she is hunched over. Hasn't used heat or ice the past week. Has no pain at nighttime or lying down. After PT pt reports no pain and less stiff. PT-OP-J Posture/Palpation/Skin Start: 04/03/22 17:51 Freq: Status: Active Protocol: Document 04/07/22 09:45 LRN (Rec: 04/08/22 10:12 LRN [id number]) Posture Evaluation Position Standing T-Spine Posture Increased Kyphosis L-Spine Posture Flattened Shoulder Posture (L) Elevated Hip Posture (L) Externally Rotated,(R) Externally Rotated Ankle/Foot Posture (L) Dorsiflexed,(R) Dorsiflexed Foot Arch (L) Medium Arch,(R) Medium Arch Palpation Assessment Location Hips Palpation Location L Gluteals Palpation Findings Soft Tissue Tightness,Muscle Guarding Palpation Details Pain at SIJ's bilaterally Low Back Palpation Location R Lumbar paraspinals Palpation Findings Soft Tissue Tightness,Muscle Guarding PT-OP-K Range of Motion Start: 04/03/22 17:51 Freq: Status: Active Protocol: Document 04/07/22 09:45 LRN (Rec: 04/08/22 10:12 LRN [id number]) Lumbar Spine Range of Motion Lumbar Spine Active Degrees Testing Position Standing Flexion 80 Extension 20 Rotation Left 15 Rotation Right 5 ROM Limitations Soft Tissue Tightness,Pain Hip Goniometric Range of Motion Hip Right Passive Testing Position Supine Internal Rotation 20 External Rotation 30 Comments Decreased hip Ext AROM in prone (~10-15 deg's). Left Passive Testing Position Supine Internal Rotation 10 Comments Decreased hip Ext AROM in prone (~10-15 deg's). PT-OP-M Strength Start: 04/03/22 17:51 Freq: Status: Active Protocol: Document 04/07/22 09:45 LRN (Rec: 04/08/22 10:12 LRN [id number]) Trunk Strength Trunk Manual Muscle Testing Core Stabilization Loss of core stability with MMT of hips. Hip Strength Hip Manual Muscle Testing Right Abduction 3 Fair Comments Generally 5/5, except as indicated above. Left Abduction 3 Fair Comments Generally 5/5, except as indicated above. Knee Strength Knee Manual Muscle Testing Right Comments Generally 5/5. Left Comments Generally 5/5. PT-OP-Q Treatments Start: 04/03/22 17:51 Freq: Status: Active Protocol: Document 04/17/22 09:08 LRN (Rec: 04/17/22 12:39 LRN [id number]) Therapeutic Exercises Supine Exercises Iliopsoas stretch Supine Exercise Name Eliazar Test stretch (from side of plinth) R>L. Side bilateral Reps/Minutes 60 x 2 Right, 60 x 1 Left Comments Extra time to determine max tolerated position DKTC stretch Supine Exercise Name DKTC stretch Reps/Minutes 10 x 6 Comments Extra time to determine best stretch tolerated. SKTC stretch Supine Exercise Name SKTC stretch w/opposite Iliopsoas stretch Side right Reps/Minutes 30 x 2 Comments Extra time to determine best stretch tolerated. Stand<>Sit training Supine Exercise Name Stand<>Sit transfer training. Manual Therapy Treatment Soft Tissue Mobilization Lateral thigh/lower legs Body Location Bam lateral thighs/lower legs Mobilization Type Instrument Assisted Intensity/Depth Superficial Body Position Hooklying Comments Used wooden roller Self-Care/Home Management Treatment Education Patient Education Pain Management Other Education Educated and discussed with the pt the use of ice/heat for pain/stiffness management after activity. Pt to use ice one day and heat the next and report which works the best. Activities Self-Care/Home Management Activities I/S pt to try use of ice/heat for pain relief after ex to determine best use of modality . No pain onset with stretches. PT-OP-R Modalities Start: 04/03/22 17:51 Freq: Status: Active Protocol: Document 04/17/22 09:08 LRN (Rec: 04/17/22 12:39 LRN [id number]) Electric Stimulation Electric Stimulation Interferential Current (IFC) Body Location [L5-S1] Duration (Minutes) 10 Target/Sweep Sweep Patient Position Hooklying Combined With Heat/Cold Hot Pack Comments Legs on bolster PT-OP-T Assessment and Plan Start: 04/03/22 17:51 Freq: Status: Active Protocol: Document 04/17/22 09:08 LRN (Rec: 04/17/22 12:39 LRN [id number]) Physical Therapy Assessment Goals Three Impairment Decreased core/hip AB strength . Impairment Loss of core stability with MMT of LE's and hip AB is 3/5 bilaterally. Short Term Goal (STG) Improve bilateral hip AB strength to 4/5, with pt able to tolerate standing > 15 minutes, prior to needing to sit down. 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 LTG Duration 07/07/22 Two Impairment Pain limiting function Impairment SHELLEY score is 32/100, (16/50), 20-39% impaired of score 20-39 Short Term Goal (STG) Pt will be educated in pain management techniques ( modalities and day/night proper posturing). (04/17/22: Pt educated in pain management techniques for day /night) STG Duration 05/02/22 (04/17/22: Progressed ). Mcfp Goal (LTG) Improve SHELLEY score to 19/100, ( 8/50) or less. LTG Duration 07/07/22 One Impairment Lacks appropriate self care program Short Term Goal (STG) Pt will be educated in proper body mechanics for daily activities. (04/17/22: Pt educated in proper transfers stand<>Sit) STG Duration 04/28/22 (04/17/22: Progressed) Mcfp Goal (LTG) Pt will be independent in a self care HEP. 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 Good body mechanics with transfers stand<>supine after training/ education. Pt R Iliopsoas is tighter than L. Pain in LB is now felt as tightness, pt's lateral thighs remain tender. + response to MH/IFES with reduction of stiffness in the back and no pain. Physical Therapy Plan Frequency and Duration Frequency of Treatment 2x/Week Plan of Care Start Date 04/08/22 Plan of Care End Date 07/07/22 Next Visit Focus/Plan Next Note Type Treatment Note Next Visit Plan Issue Iliopsoas stretch for HEP & assess response to use of MH/cold for pain management and educate pt in proper posturing with use of MH/ice ( STG#2). Educate pt in proper body mechnics for daily activities, and pain management techniques to address STG's #1. Review current condition and function , recheck spine posture (for scoliosis), trunk mobility ( due to loss of information) & check hip mobility with rotation stretches (Iliopsoas) and start ex's as needed in areas of deficit. HEP: hip AB strengthening & hip rotation stretching, trunk R rot. Manual-Correct sacral positioning and SIJ mobs if needed, desensitize/STM lateral thighs, STM of R LB/L Gluteals, bam IT Bands. Exer -Core/pelvic stab. Modalities-End MH or Ice and IFES [L5-S1].
--- NOTE | 2022-04-20 16:35 | PT.OTN ---
Current Diagnoses Low back pain, unspecified (04/20/22) Abnormal electromyogram [EMG] (04/20/22) Physical Therapy Treatment Note PT-OP-A Visit Information Start: 04/03/22 17:51 Freq: Status: Active Protocol: Document 04/20/22 09:02 LRN (Rec: 04/20/22 09:52 LRN [id number]) Out-Patient Physical Therapy Visit Information Visit Information Visit Type Treatment Note Visit Start Time 09:02 Visit Stop Time 10:00 Total Visit Minutes 58 Visit Number 3 Evaluation Information Evaluation Date 04/07/22 Precautions Precautions Arthritis, Lami 1979, Bam meniscus repair , bilateral bunionectomy , reattached L foot 1951. PT-OP-B Current Condition Start: 04/03/22 17:51 Freq: Status: Active Protocol: Document 04/17/22 09:08 LRN (Rec: 04/17/22 18:20 LRN [id number]) Current Condition History of Current Condition Onset Date ~1 yr ago Current Complaints LBP a yr ago. Recent Lateral thigh and posterior knee pain bilaterally. History of Current Condition Insidous onset of LBP & LE pain that has continued to worsen. Pt states it is not as bad as prior to her back surgery in 1979 (L4-L5 laminectomy), but she is fearful it is worsening. Chronic LBP for 20 yrs, recent pt report that EMG study showed L5-S1 lesion-ganglion interference. PT-OP-C Subjective Start: 04/03/22 17:51 Freq: Status: Active Protocol: Document 04/20/22 09:02 LRN (Rec: 04/20/22 09:52 LRN [id number]) OP-PT Subjective Patient Comments Patient Comments Use of Ice or MH to back was good for either one. No leg pain, has more LBP. After MH/ IFES pt reports feeling better , no pain and more relaxed. PT-OP-J Posture/Palpation/Skin Start: 04/03/22 17:51 Freq: Status: Active Protocol: Document 04/07/22 09:45 LRN (Rec: 04/08/22 10:12 LRN [id number]) Posture Evaluation Position Standing T-Spine Posture Increased Kyphosis L-Spine Posture Flattened Shoulder Posture (L) Elevated Hip Posture (L) Externally Rotated,(R) Externally Rotated Ankle/Foot Posture (L) Dorsiflexed,(R) Dorsiflexed Foot Arch (L) Medium Arch,(R) Medium Arch Palpation Assessment Location Hips Palpation Location L Gluteals Palpation Findings Soft Tissue Tightness,Muscle Guarding Palpation Details Pain at SIJ's bilaterally Low Back Palpation Location R Lumbar paraspinals Palpation Findings Soft Tissue Tightness,Muscle Guarding PT-OP-K Range of Motion Start: 04/03/22 17:51 Freq: Status: Active Protocol: Document 04/20/22 09:02 LRN (Rec: 04/20/22 09:52 LRN [id number]) Hip Goniometric Range of Motion Hip Right Passive Testing Position Supine Left Passive Testing Position Supine Internal Rotation 15 External Rotation 70 PT-OP-M Strength Start: 04/03/22 17:51 Freq: Status: Active Protocol: Document 04/07/22 09:45 LRN (Rec: 04/08/22 10:12 LRN [id number]) Trunk Strength Trunk Manual Muscle Testing Core Stabilization Loss of core stability with MMT of hips. Hip Strength Hip Manual Muscle Testing Right Abduction 3 Fair Comments Generally 5/5, except as indicated above. Left Abduction 3 Fair Comments Generally 5/5, except as indicated above. Knee Strength Knee Manual Muscle Testing Right Comments Generally 5/5. Left Comments Generally 5/5. PT-OP-Q Treatments Start: 04/03/22 17:51 Freq: Status: Active Protocol: Document 04/20/22 09:02 LRN (Rec: 04/20/22 09:52 LRN [id number]) Therapeutic Exercises Standing Exercises Squat training Standing Exercise Name Squat training for her wgt lifting at gym Reps/Minutes 6' Body mechanics training Standing Exercise Name Picking up objects, lifting. Reps/Minutes 7' Self-Care/Home Management Treatment Education Patient Education Body Mechanics,Joint Protection,Pain Management, Posture Other Education Educated & Discussed at length proper body mechanics for mutiple daily activities, lifting, reaching, placing objects on high shelf, proper transfer in/out of bed. Activities Self-Care/Home Management Activities Issued and reviewed handouts for: daily activities body mechanics, sup<>sit transfers, body mechanics basic list and body mechanics (sitting, standing, lifting, reaching, carrying, placing objects overhead). Pt choose to not receive a handout for Iliopsoas stretch. PT-OP-R Modalities Start: 04/03/22 17:51 Freq: Status: Active Protocol: Document 04/20/22 09:02 LRN (Rec: 04/20/22 09:52 LRN [id number]) Electric Stimulation Electric Stimulation Interferential Current (IFC) Body Location [L5-S1] Duration (Minutes) 15 Intensity 11 Target/Sweep Sweep Patient Position Hooklying Combined With Heat/Cold Hot Pack Comments Legs on bolster PT-OP-T Assessment and Plan Start: 04/03/22 17:51 Freq: Status: Active Protocol: Document 04/20/22 09:02 LRN (Rec: 04/20/22 09:52 LRN [id number]) Physical Therapy Assessment Goals Three Impairment Decreased core/hip AB strength . Impairment Loss of core stability with MMT of LE's and hip AB is 3/5 bilaterally. Short Term Goal (STG) Improve bilateral hip AB strength to 4/5, with pt able to tolerate standing > 15 minutes, prior to needing to sit down. STG Duration 05/26/22 Usp Goal (LTG) Improve core stability with the pt able to play pickleball without an increase in LBP or lateral thigh pain. LTG Duration 07/07/22 Two Impairment Pain limiting function Impairment SHELLEY score is 32/100, (16/50), 20-39% impaired of score 20-39 Short Term Goal (STG) Pt will be educated in pain management techniques ( modalities and day/night proper posturing). (04/17/22: Pt educated in pain management techniques for day /night) (04/20/22: Pt educated in proper posturing and discussed use of MH/ice for any position). STG Duration 05/02/22 (04/20/22: MET GOAL). Usp Goal (LTG) Improve SHELLEY score to 19/100, ( 8/50) or less. LTG Duration 07/07/22 One Impairment Lacks appropriate self care program Short Term Goal (STG) Pt will be educated in proper body mechanics for daily activities. (04/17/22: Pt educated in proper transfers stand<>Sit) (04/20/22: Pt educated in proper body mechanics). STG Duration 04/28/22 (04/20/22: MET GOAL) Waistline Joiner Goal (LTG) Pt will be independent in a self care HEP. (04/20/22: Pt I/S in Iliopsoas stretch and pt chooses not to have handout). LTG Duration 07/07/22 Progress Towards Goals Progress Comments MET STG# 1 & 2. Assessment Summary Assessment Pt is reporting no leg pain, but more LBP as pain centralizes. Pt has good attitude towards changing her body mechanics and proper posturing. She appears to have a good understanding of educated information presented . Physical Therapy Plan Frequency and Duration Frequency of Treatment 2x/Week Plan of Care Start Date 04/08/22 Plan of Care End Date 07/07/22 Next Visit Focus/Plan Next Note Type Treatment Note Next Visit Plan Review current condition and function, recheck spine posture (for scoliosis), trunk mobility (due to loss of information) & check R hip mobility with rotation stretches and start ex's as needed in areas of deficit. HEP: hip AB strengthening & hip rotation stretching, trunk R rot. Manual-Correct sacral positioning and SIJ mobs if needed, desensitize/STM lateral thighs, STM of R LB/L Gluteals, bam IT Bands. Exer -Core/pelvic stab. Modalities-End MH or Ice and IFES [L5-S1].
--- NOTE | 2022-04-24 12:41 | PT.OTN ---
Current Diagnoses Low back pain, unspecified (04/24/22) Abnormal electromyogram [EMG] (04/24/22) Physical Therapy Treatment Note PT-OP-A Visit Information Start: 04/03/22 17:51 Freq: Status: Active Protocol: Document 04/24/22 09:05 LRN (Rec: 04/24/22 09:51 LRN [id number]) Out-Patient Physical Therapy Visit Information Visit Information Visit Type Treatment Note Visit Start Time 09:05 Visit Stop Time 09:45 Total Visit Minutes 40 Visit Number 4 Evaluation Information Evaluation Date 04/07/22 Precautions Precautions Arthritis, Lami 1979, Bam meniscus repair , bilateral bunionectomy , reattached L foot 1951. PT-OP-B Current Condition Start: 04/03/22 17:51 Freq: Status: Active Protocol: Document 04/17/22 09:08 LRN (Rec: 04/17/22 18:20 LRN [id number]) Current Condition History of Current Condition Onset Date ~1 yr ago Current Complaints LBP a yr ago. Recent Lateral thigh and posterior knee pain bilaterally. History of Current Condition Insidous onset of LBP & LE pain that has continued to worsen. Pt states it is not as bad as prior to her back surgery in 1979 (L4-L5 laminectomy), but she is fearful it is worsening. Chronic LBP for 20 yrs, recent pt report that EMG study showed L5-S1 lesion-ganglion interference. PT-OP-C Subjective Start: 04/03/22 17:51 Freq: Status: Active Protocol: Document 04/24/22 09:05 LRN (Rec: 04/24/22 09:51 LRN [id number]) OP-PT Subjective Patient Comments Patient Comments No longer has pain in legs, only has ache in the back. Pain with standing may be more due to feet pain. PT-OP-J Posture/Palpation/Skin Start: 04/03/22 17:51 Freq: Status: Active Protocol: Document 04/24/22 09:05 LRN (Rec: 04/24/22 09:51 LRN [id number]) Posture Evaluation Comments Posture Comments C-curve of L/S with apex on the left ~L3. PT-OP-K Range of Motion Start: 04/03/22 17:51 Freq: Status: Active Protocol: Document 04/24/22 09:05 LRN (Rec: 04/24/22 09:51 LRN [id number]) Lumbar Spine Range of Motion Lumbar Spine Active Degrees Testing Position Standing Flexion 105 Extension 30 Rotation Left 25 Rotation Right 3 Lateral Flexion Left 20 Lateral Flexion Right 13 Comments 105/70 30/0 Hip Goniometric Range of Motion Hip Right Passive Testing Position Supine External Rotation 20 Comments 65 Left Passive Testing Position Supine Internal Rotation 15 External Rotation 70 PT-OP-M Strength Start: 04/03/22 17:51 Freq: Status: Active Protocol: Document 04/07/22 09:45 LRN (Rec: 04/08/22 10:12 LRN [id number]) Trunk Strength Trunk Manual Muscle Testing Core Stabilization Loss of core stability with MMT of hips. Hip Strength Hip Manual Muscle Testing Right Abduction 3 Fair Comments Generally 5/5, except as indicated above. Left Abduction 3 Fair Comments Generally 5/5, except as indicated above. Knee Strength Knee Manual Muscle Testing Right Comments Generally 5/5. Left Comments Generally 5/5. PT-OP-Q Treatments Start: 04/03/22 17:51 Freq: Status: Active Protocol: Document 04/24/22 09:05 LRN (Rec: 04/24/22 09:51 LRN [id number]) Therapeutic Exercises Supine Exercises Piriformis stretch Supine Exercise Name Knee to opp shoulder & Lat hip stretch (L>R) Side bilateral Reps/Minutes 60SH x 1-2 Comments Extra time to determine best stretch tolerated, PROM taken Fig 4 stretch Supine Exercise Name Fig 4 stretch (R>L) (R ankle below, knee) Side bilateral Reps/Minutes 60SH x 1-2, f/b active stretch to hip ER's Comments Extra time to determine best stretch tolerated. PROM taken Iliopsoas stretch Supine Exercise Name Eliazar Test stretch (from side of plinth) R>L. Side bilateral Reps/Minutes 60 x 2 Right, 60 x 1 Left Comments Extra time to determine max tolerated position DKTC stretch Supine Exercise Name DKTC stretch Reps/Minutes 10 x 6 Comments Extra time to determine best stretch tolerated. SKTC stretch Supine Exercise Name SKTC stretch w/opposite Iliopsoas stretch Side right Reps/Minutes 30 x 2 Comments Extra time to determine best stretch tolerated. Sidelying Exercises L Hip AB Sidelying Exercise Name L hip AB for Left L/S paraspinal strengthening Side left Reps/Minutes 5-10 SH x 15 Standing Exercises Trunk AROM Standing Exercise Name Trunk AROM Reps/Minutes 1-2x each Comments AROM taken L paraspinal strengthening Standing Exercise Name L arm overhead and hip AB Side left Reps/Minutes 10SH x 15 Comments Cuing for equal WBing and proper trunk posturing L SB stretch Standing Exercise Name SB stretch Side left Reps/Minutes 10SH x 10 Comments Extra time for max tolerated stretch, cued for equal WBing & knees straight Self-Care/Home Management Treatment Education Patient Education Home Exercise Program Activities Self-Care/Home Management Activities Issued & reviewed HEP: Hip stretches: Fig 4, Piriformis (knee to opp shldr & Lat hip stretch), Ilipsoas stretch and Scoliosis ex: Sidelie L hip AB. PT-OP-R Modalities Start: 04/03/22 17:51 Freq: Status: Active Protocol: Document 04/20/22 09:02 LRN (Rec: 04/20/22 09:52 LRN [id number]) Electric Stimulation Electric Stimulation Interferential Current (IFC) Body Location [L5-S1] Duration (Minutes) 15 Intensity 11 Target/Sweep Sweep Patient Position Hooklying Combined With Heat/Cold Hot Pack Comments Legs on bolster PT-OP-T Assessment and Plan Start: 04/03/22 17:51 Freq: Status: Active Protocol: Document 04/24/22 09:05 LRN (Rec: 04/24/22 09:51 LRN [id number]) Physical Therapy Assessment Goals Three Impairment Decreased core/hip AB strength . Impairment Loss of core stability with MMT of LE's and hip AB is 3/5 bilaterally. Short Term Goal (STG) Improve bilateral hip AB strength to 4/5, with pt able to tolerate standing > 15 minutes, prior to needing to sit down. STG Duration 05/26/22 Lab Support Technician Goal (LTG) Improve core stability with the pt able to play pickleball without an increase in LBP or lateral thigh pain. LTG Duration 07/07/22 Two Impairment Pain limiting function Impairment SHELLEY score is 32/100, (16/50), 20-39% impaired of score 20-39 Short Term Goal (STG) Pt will be educated in pain management techniques ( modalities and day/night proper posturing). (04/17/22: Pt educated in pain management techniques for day /night) (04/20/22: Pt educated in proper posturing and discussed use of MH/ice for any position). STG Duration 05/02/22 (04/20/22: MET GOAL). Lab Support Technician Goal (LTG) Improve SHELLEY score to 19/100, ( 8/50) or less. LTG Duration 07/07/22 One Impairment Lacks appropriate self care program Short Term Goal (STG) Pt will be educated in proper body mechanics for daily activities. (04/17/22: Pt educated in proper transfers stand<>Sit) (04/20/22: Pt educated in proper body mechanics). STG Duration 04/28/22 (04/20/22: MET GOAL) Mcc Goal (LTG) Pt will be independent in a self care HEP. (04/20/22: Pt I/S in Iliopsoas stretch and pt chooses not to have handout). (04/24/22: HEP: Piriformis ( knee to opp shldr, Lat hip stretch, Fig 4, & Ilipsoas stretch; sidelie hip AB for scoliosis). LTG Duration 07/07/22 (04/24/22: Progressed) Progress Towards Goals Progress Comments Progressed HEP. Assessment Summary Assessment C-Curvature of L/S with apex on L at ~L3. Decreased Hip mobility: ER worse on R, IR is worse on L. Pt has no onset of back or lateral thigh pain with trunk flex/ext. Pt is hyper extended in the low back . Physical Therapy Plan Frequency and Duration Frequency of Treatment 2x/Week Plan of Care Start Date 04/08/22 Plan of Care End Date 07/07/22 Next Visit Focus/Plan Next Note Type Treatment Note Next Visit Plan Review current condition and function, assess reason for standing pain (feet vs back). HEP: For Scoliosis: hip AB strengthening, trunk L SB & R rot stretch. Manual-STM of R LB/L Gluteals, bam IT Bands. Exer-Core stab & pelvic stab. Modalities-End MH or Ice and IFES [L5-S1].
--- NOTE | 2022-04-27 11:12 | PT.OTN ---
Current Diagnoses Low back pain, unspecified (04/27/22) Abnormal electromyogram [EMG] (04/27/22) Physical Therapy Treatment Note PT-OP-A Visit Information Start: 04/03/22 17:51 Freq: Status: Active Protocol: Document 04/27/22 09:05 LRN (Rec: 04/27/22 09:48 LRN [id number]) Out-Patient Physical Therapy Visit Information Visit Information Visit Type Treatment Note Visit Note EMG report brought in. Visit Start Time 09:05 Visit Stop Time 09:46 Total Visit Minutes 41 Visit Number 5 Evaluation Information Evaluation Date 04/07/22 Precautions Precautions Arthritis, Lami 1979, Bam meniscus repair , bilateral bunionectomy , reattached L foot 1951. PT-OP-B Current Condition Start: 04/03/22 17:51 Freq: Status: Active Protocol: Document 04/27/22 09:05 LRN (Rec: 04/27/22 11:11 LRN [id number]) Current Condition History of Current Condition Onset Date ~1 yr ago Current Complaints LBP a yr ago. Recent Lateral thigh and posterior knee pain bilaterally. History of Current Condition Insidous onset of LBP & LE pain that has continued to worsen. Pt states it is not as bad as prior to her back surgery in 1979 (L4-L5 laminectomy), but she is fearful it is worsening. Chronic LBP for 20 yrs, recent pt report that EMG study showed L5-S1 lesion-ganglion interference. Prior Treatments and Tests EMG of 12/15/21: EMG report indicates Bam L5 & S1 spinal lesions affecting anter & sewer cleaner primary rami w/ evidence of ongoing dnervation in bam TA/TFL/TP/medial gastrocnemius/glueus max/Lower LS paraspinal ms; results suggestive of chronic pathology. Bam chronic L4 spinal n lesions w/o evidence of ongoing denervation and evidence of ongoing reinnervation. PT-OP-C Subjective Start: 04/03/22 17:51 Freq: Status: Active Protocol: Document 04/27/22 09:05 LRN (Rec: 04/27/22 09:48 LRN [id number]) OP-PT Subjective Patient Comments Patient Comments Stretched and exercised already. States her feet hurt due to Digits 1 & 2 of feet are compressing causing blister. PT-OP-J Posture/Palpation/Skin Start: 04/03/22 17:51 Freq: Status: Active Protocol: Document 04/24/22 09:05 LRN (Rec: 04/24/22 09:51 LRN [id number]) Posture Evaluation Comments Posture Comments C-curve of L/S with apex on the left ~L3. PT-OP-K Range of Motion Start: 04/03/22 17:51 Freq: Status: Active Protocol: Document 04/24/22 09:05 LRN (Rec: 04/24/22 09:51 LRN [id number]) Lumbar Spine Range of Motion Lumbar Spine Active Degrees Testing Position Standing Flexion 105 Extension 30 Rotation Left 25 Rotation Right 3 Lateral Flexion Left 20 Lateral Flexion Right 13 Comments 105/70 30/0 Hip Goniometric Range of Motion Hip Right Passive Testing Position Supine External Rotation 20 Comments 65 Left Passive Testing Position Supine Internal Rotation 15 External Rotation 70 PT-OP-M Strength Start: 04/03/22 17:51 Freq: Status: Active Protocol: Document 04/07/22 09:45 LRN (Rec: 04/08/22 10:12 LRN [id number]) Trunk Strength Trunk Manual Muscle Testing Core Stabilization Loss of core stability with MMT of hips. Hip Strength Hip Manual Muscle Testing Right Abduction 3 Fair Comments Generally 5/5, except as indicated above. Left Abduction 3 Fair Comments Generally 5/5, except as indicated above. Knee Strength Knee Manual Muscle Testing Right Comments Generally 5/5. Left Comments Generally 5/5. PT-OP-Q Treatments Start: 04/03/22 17:51 Freq: Status: Active Protocol: Document 04/27/22 09:05 LRN (Rec: 04/27/22 09:48 LRN [id number]) Therapeutic Exercises Sidelying Exercises Stretch R Paraspinals Sidelying Exercise Name Lying L w/2 towel rolls under waist & pillow btn legs Equipment Used Pillow, 2 towels folded L Hip AB Sidelying Exercise Name L hip AB for Left L/S paraspinal strengthening Equipment Used Pillow btn legs Reps/Minutes 10 SH x 6, 5 SH x 5 Standing Exercises L row/L knee on chair Standing Exercise Name L Row w/R hand & R knee on support in 1/2 hands/knees position Side right Reps/Minutes 20x L paraspinal strengthening Standing Exercise Name L arm overhead and hip AB/ext Side left Reps/Minutes 5SH x 15 Comments Cuing for upright trunk & leg ext as AB, posturing Self-Care/Home Management Treatment Education Patient Education Home Exercise Program Other Education Pt education in standing posture of equal WBing (pt tends to stand on LLE >RLE. Activities Self-Care/Home Management Activities Re-issued Sidelie stretch with added I/S for L paraspinal strengthening, and added L row in 1/2 4pt positioning (L knee and R arm supported on plinth). PT-OP-R Modalities Start: 04/03/22 17:51 Freq: Status: Active Protocol: Document 04/20/22 09:02 LRN (Rec: 04/20/22 09:52 LRN [id number]) Electric Stimulation Electric Stimulation Interferential Current (IFC) Body Location [L5-S1] Duration (Minutes) 15 Intensity 11 Target/Sweep Sweep Patient Position Hooklying Combined With Heat/Cold Hot Pack Comments Legs on bolster PT-OP-T Assessment and Plan Start: 04/03/22 17:51 Freq: Status: Active Protocol: Document 04/27/22 09:05 LRN (Rec: 04/27/22 09:48 LRN [id number]) Physical Therapy Assessment Goals Three Impairment Decreased core/hip AB strength . Impairment Loss of core stability with MMT of LE's and hip AB is 3/5 bilaterally. Short Term Goal (STG) Improve bilateral hip AB strength to 4/5, with pt able to tolerate standing > 15 minutes, prior to needing to sit down. STG Duration 05/26/22 Nursing Home Goal (LTG) Improve core stability with the pt able to play pickleball without an increase in LBP or lateral thigh pain. LTG Duration 07/07/22 Two Impairment Pain limiting function Impairment SHELLEY score is 32/100, (16/50), 20-39% impaired of score 20-39 Short Term Goal (STG) Pt will be educated in pain management techniques ( modalities and day/night proper posturing). (04/17/22: Pt educated in pain management techniques for day /night) (04/20/22: Pt educated in proper posturing and discussed use of MH/ice for any position). STG Duration 05/02/22 (04/20/22: MET GOAL). Metalworking Instructor Goal (LTG) Improve SHELLEY score to 19/100, ( 8/50) or less. LTG Duration 07/07/22 One Impairment Lacks appropriate self care program Short Term Goal (STG) Pt will be educated in proper body mechanics for daily activities. (04/17/22: Pt educated in proper transfers stand<>Sit) (04/20/22: Pt educated in proper body mechanics). STG Duration 04/28/22 (04/20/22: MET GOAL) Nursing Home Goal (LTG) Pt will be independent in a self care HEP. (04/20/22: Pt I/S in Iliopsoas stretch and pt chooses not to have handout). (04/24/22: HEP: Piriformis ( knee to opp shldr, Lat hip stretch, Fig 4, & Ilipsoas stretch; sidelie hip AB for scoliosis). (04/27/22: Reissued sidelie hip AB with I/S for stretch to R lateral trunk/paraspinals & L row w/R knee & hand on plinth, I/S in standing L hip ext/AB holds with upright trunk posture) LTG Duration 07/07/22 (04/27/22: Progressed) Assessment Summary Assessment EMG report from pt indicates Bam L5 & S1 spinal lesions w/ evidence of ongoing denervation in bam TA/TFL/TP/ medial gastrocnemius/gluteus max/Lower LS paraspinal ms, suggestive of chronic pathology. Bam chronic L4 spinal n lesions w/o evidence of ongoing denervation and evidence of ongoing reinnervation. C-Curvature of L/S with apex on L at ~L3. Correct decreased Hip mobility: ER worse on R, IR is worse on L. Pt needed much phy & v cuing to keep proper posture with standing ex (upright posture and correcting R rot of trunk) , and with Sidlelie of ex initially. Pt WBing in standing appears to be LLE>RLE . Physical Therapy Plan Frequency and Duration Frequency of Treatment 2x/Week Plan of Care Start Date 04/08/22 Plan of Care End Date 07/07/22 Next Visit Focus/Plan Next Note Type Treatment Note Next Visit Plan Assess reason for standing pain, if feet vs back is limiting factor. Review HEP: (for Scoliosis) L hip AB strengthening, trunk L SB & L row. Add L lower trunk rot stretch. ?Manual-STM of R LB and R rotators & QL/L Gluteals, bam IT Bands. Exer-Core stab & pelvic stab to improve tolerance to recreational activities. Modalities-End MH or Ice and IFES [L5-S1].
--- NOTE | 2022-05-01 10:07 | PT.OTN ---
Current Diagnoses Low back pain, unspecified (05/01/22) Abnormal electromyogram [EMG] (05/01/22) Physical Therapy Treatment Note PT-OP-A Visit Information Start: 04/03/22 17:51 Freq: Status: Active Protocol: Document 05/01/22 09:04 LRN (Rec: 05/01/22 10:05 LRN [id number]) Out-Patient Physical Therapy Visit Information Visit Information Visit Type Treatment Note Visit Start Time 09:04 Visit Stop Time 09:53 Total Visit Minutes 49 Visit Number 6 Evaluation Information Evaluation Date 04/07/22 Precautions Precautions Arthritis, Lami 1979, Ev meniscus repair , bilateral bunionectomy , reattached L foot 1951. PT-OP-B Current Condition Start: 04/03/22 17:51 Freq: Status: Active Protocol: Document 04/27/22 09:05 LRN (Rec: 04/27/22 11:11 LRN [id number]) Current Condition History of Current Condition Onset Date ~1 yr ago Current Complaints LBP a yr ago. Recent Lateral thigh and posterior knee pain bilaterally. History of Current Condition Insidous onset of LBP & LE pain that has continued to worsen. Pt states it is not as bad as prior to her back surgery in 1979 (L4-L5 laminectomy), but she is fearful it is worsening. Chronic LBP for 20 yrs, recent pt report that EMG study showed L5-S1 lesion-ganglion interference. Prior Treatments and Tests EMG of 12/15/21: EMG report indicates Ev L5 & S1 spinal lesions affecting anter & horologist apprentice primary rami w/ evidence of ongoing dnervation in ev TA/TFL/TP/medial gastrocnemius/glueus max/Lower LS paraspinal ms; results suggestive of chronic pathology. Ev chronic L4 spinal n lesions w/o evidence of ongoing denervation and evidence of ongoing reinnervation. PT-OP-C Subjective Start: 04/03/22 17:51 Freq: Status: Active Protocol: Document 05/01/22 09:04 LRN (Rec: 05/01/22 10:05 LRN [id number]) OP-PT Subjective Patient Comments Patient Comments States her back went out over the weekend. Wasn't doing much. No pain in legs. States she has been sitting in a recliner chair more to help heal her toes and now her feet are better but her back is more stiff. Little bit of pain before EStim, but only a little stiffness after EStim. PT-OP-J Posture/Palpation/Skin Start: 04/03/22 17:51 Freq: Status: Active Protocol: Document 04/24/22 09:05 LRN (Rec: 04/24/22 09:51 LRN [id number]) Posture Evaluation Comments Posture Comments C-curve of L/S with apex on the left ~L3. PT-OP-K Range of Motion Start: 04/03/22 17:51 Freq: Status: Active Protocol: Document 04/24/22 09:05 LRN (Rec: 04/24/22 09:51 LRN [id number]) Lumbar Spine Range of Motion Lumbar Spine Active Degrees Testing Position Standing Flexion 105 Extension 30 Rotation Left 25 Rotation Right 3 Lateral Flexion Left 20 Lateral Flexion Right 13 Comments 105/70 30/0 Hip Goniometric Range of Motion Hip Right Passive Testing Position Supine External Rotation 20 Comments 65 Left Passive Testing Position Supine Internal Rotation 15 External Rotation 70 PT-OP-M Strength Start: 04/03/22 17:51 Freq: Status: Active Protocol: Document 04/07/22 09:45 LRN (Rec: 04/08/22 10:12 LRN [id number]) Trunk Strength Trunk Manual Muscle Testing Core Stabilization Loss of core stability with MMT of hips. Hip Strength Hip Manual Muscle Testing Right Abduction 3 Fair Comments Generally 5/5, except as indicated above. Left Abduction 3 Fair Comments Generally 5/5, except as indicated above. Knee Strength Knee Manual Muscle Testing Right Comments Generally 5/5. Left Comments Generally 5/5. PT-OP-Q Treatments Start: 04/03/22 17:51 Freq: Status: Active Protocol: Document 05/01/22 09:04 LRN (Rec: 05/01/22 10:05 LRN [id number]) Therapeutic Exercises Prone Exercises LOIS Prone Exercise Name LOIS Reps/Minutes 10x 3 Comments Cuing to rest back flat after lift. Sidelying Exercises Stretch R Paraspinals Sidelying Exercise Name Lying L w/2 towel rolls under waist & pillow btn legs Equipment Used Pillow, 1 hand towel rolled, 1 laying on top of roll. Comments Towel roll 2 above last rib anterolaterally L Hip AB Sidelying Exercise Name L hip AB for Left L/S paraspinal strengthening Equipment Used Pillow btn legs Reps/Minutes 5 SH x 8 Manual Therapy Treatment Soft Tissue Mobilization Ilipsoas Release Body Location Bilateral Ilipsoas release: L/ S & lesser trochanter region of femur Mobilization Type Sustained Pressure Intensity/Depth Moderate Body Position Supine on pillows Self-Care/Home Management Treatment Activities Self-Care/Home Management Activities I/S pt to hold on standing ex' s and to decrease reps with supine ex's. Held DKTC stretch due to onset of pain with stretch. Recommended pt sidelie R or L w/pillow roll instead of recliner sitting. PT-OP-R Modalities Start: 04/03/22 17:51 Freq: Status: Active Protocol: Document 05/01/22 09:04 LRN (Rec: 05/01/22 10:05 LRN [id number]) Electric Stimulation Electric Stimulation Interferential Current (IFC) Body Location [L5-S1] Duration (Minutes) 15 Intensity 12 Target/Sweep Sweep Patient Position Hooklying Combined With Heat/Cold Hot Pack Comments Legs on bolster PT-OP-T Assessment and Plan Start: 04/03/22 17:51 Freq: Status: Active Protocol: Document 05/01/22 09:04 LRN (Rec: 05/01/22 10:05 LRN [id number]) Physical Therapy Assessment Goals Three Impairment Decreased core/hip AB strength . Impairment Loss of core stability with MMT of LE's and hip AB is 3/5 bilaterally. Short Term Goal (STG) Improve bilateral hip AB strength to 4/5, with pt able to tolerate standing > 15 minutes, prior to needing to sit down. STG Duration 05/26/22 Fpc Goal (LTG) Improve core stability with the pt able to play pickleball without an increase in LBP or lateral thigh pain. LTG Duration 07/07/22 Two Impairment Pain limiting function Impairment SHELLEY score is 32/100, (16/50), 20-39% impaired of score 20-39 Short Term Goal (STG) Pt will be educated in pain management techniques ( modalities and day/night proper posturing). (04/17/22: Pt educated in pain management techniques for day /night) (04/20/22: Pt educated in proper posturing and discussed use of MH/ice for any position). STG Duration 05/02/22 (04/20/22: MET GOAL). Fpc Goal (LTG) Improve SHELLEY score to 19/100, ( 8/50) or less. LTG Duration 07/07/22 One Impairment Lacks appropriate self care program Short Term Goal (STG) Pt will be educated in proper body mechanics for daily activities. (04/17/22: Pt educated in proper transfers stand<>Sit) (04/20/22: Pt educated in proper body mechanics). STG Duration 04/28/22 (04/20/22: MET GOAL) Fpc Goal (LTG) Pt will be independent in a self care HEP. (04/20/22: Pt I/S in Iliopsoas stretch and pt chooses not to have handout). (04/24/22: HEP: Piriformis ( knee to opp shldr, Lat hip stretch, Fig 4, & Ilipsoas stretch; sidelie hip AB for scoliosis). (04/27/22: Reissued sidelie hip AB with I/S for stretch to R lateral trunk/paraspinals & L row w/R knee & hand on plinth, I/S in standing L hip ext/AB holds with upright trunk posture) LTG Duration 07/07/22 (04/27/22: Progressed) Assessment Summary Assessment Pt notes lack of tolerance to standing is due to feet pain, not LBP. Worsening of her back pain is probably due to increased recliner sitting as a result of her trying to avoid being on her feet, in order for her feet to heal. Today, + response to manual Iliopsoas release with pt able to stand upright without stiffness LB stiffness (at sacral level), & + response to IFES/MH with reduction in stiffness overall. Pt LBP most likely from L5-S1 spinal lesions exacerbated by increased sitting. No change in pain, with reduction in stiffness with Extension exer. Increased pain with Simon Flex ex of DKTC. TA control and mild ext ex may be beneficial to minimize stiffness. Physical Therapy Plan Frequency and Duration Frequency of Treatment 2x/Week Plan of Care Start Date 04/08/22 Plan of Care End Date 07/07/22 Next Visit Focus/Plan Next Note Type Treatment Note Next Visit Plan Review HEP: (for Scoliosis) L hip AB strengthening, trunk L SB & L row. Add L lower trunk rot stretch. ?Manual- Iliopsoas release; STM of R LB and R rotators & QL/L Gluteals, ?ev IT Bands. Exer-Core & pelvic stab to improve tolerance to recreational activities. Try Elen ext ex to minimize LBP vs Flex ex's. Modalities-End MH or Ice and IFES [L5-S1].
--- NOTE | 2022-05-04 16:54 | PT.OTN ---
Current Diagnoses Low back pain, unspecified (05/04/22) Abnormal electromyogram [EMG] (05/04/22) Physical Therapy Treatment Note PT-OP-A Visit Information Start: 04/03/22 17:51 Freq: Status: Active Protocol: Document 05/04/22 09:06 LRN (Rec: 05/04/22 09:49 LRN [id number]) Out-Patient Physical Therapy Visit Information Visit Information Visit Type Treatment Note Visit Start Time 09:06 Visit Stop Time 10:07 Total Visit Minutes 61 Visit Number 7 Evaluation Information Evaluation Date 04/07/22 Precautions Precautions Arthritis, Lami 1979, Ev meniscus repair , bilateral bunionectomy , reattached L foot 1951. PT-OP-B Current Condition Start: 04/03/22 17:51 Freq: Status: Active Protocol: Document 04/27/22 09:05 LRN (Rec: 04/27/22 11:11 LRN [id number]) Current Condition History of Current Condition Onset Date ~1 yr ago Current Complaints LBP a yr ago. Recent Lateral thigh and posterior knee pain bilaterally. History of Current Condition Insidous onset of LBP & LE pain that has continued to worsen. Pt states it is not as bad as prior to her back surgery in 1979 (L4-L5 laminectomy), but she is fearful it is worsening. Chronic LBP for 20 yrs, recent pt report that EMG study showed L5-S1 lesion-ganglion interference. Prior Treatments and Tests EMG of 12/15/21: EMG report indicates Ev L5 & S1 spinal lesions affecting anter & patented hogshead assembler primary rami w/ evidence of ongoing dnervation in ev TA/TFL/TP/medial gastrocnemius/glueus max/Lower LS paraspinal ms; results suggestive of chronic pathology. Ev chronic L4 spinal n lesions w/o evidence of ongoing denervation and evidence of ongoing reinnervation. PT-OP-C Subjective Start: 04/03/22 17:51 Freq: Status: Active Protocol: Document 05/04/22 09:06 LRN (Rec: 05/04/22 09:49 LRN [id number]) OP-PT Subjective Patient Comments Patient Comments Back is so much better, started feeling better yesterday. Pain in the back is uncomfortable at 2/10, and no pain in legs. Has changed the way she was sitting. 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 PT-OP-J Posture/Palpation/Skin Start: 04/03/22 17:51 Freq: Status: Active Protocol: Document 04/24/22 09:05 LRN (Rec: 04/24/22 09:51 LRN [id number]) Posture Evaluation Comments Posture Comments C-curve of L/S with apex on the left ~L3. PT-OP-K Range of Motion Start: 04/03/22 17:51 Freq: Status: Active Protocol: Document 05/04/22 09:06 LRN (Rec: 05/04/22 09:49 LRN [id number]) Hip Goniometric Range of Motion Hip Right Passive Testing Position Supine Internal Rotation 35 External Rotation 38 Left Passive Testing Position Supine Internal Rotation 15 External Rotation 65 PT-OP-M Strength Start: 04/03/22 17:51 Freq: Status: Active Protocol: Document 04/07/22 09:45 LRN (Rec: 04/08/22 10:12 LRN [id number]) Trunk Strength Trunk Manual Muscle Testing Core Stabilization Loss of core stability with MMT of hips. Hip Strength Hip Manual Muscle Testing Right Abduction 3 Fair Comments Generally 5/5, except as indicated above. Left Abduction 3 Fair Comments Generally 5/5, except as indicated above. Knee Strength Knee Manual Muscle Testing Right Comments Generally 5/5. Left Comments Generally 5/5. PT-OP-Q Treatments Start: 04/03/22 17:51 Freq: Status: Active Protocol: Document 05/04/22 09:06 LRN (Rec: 05/04/22 09:49 LRN [id number]) Therapeutic Exercises Supine Exercises Piriformis stretch Supine Exercise Name Piriformis stretch (knee to opp shldr & ankle over knee stretch) Side right Reps/Minutes 60SH x 1 each Comments Extra time to obtain best position and tolerated stretch tolerated Fig 4 stretch Supine Exercise Name Fig 4 stretch Side right Reps/Minutes 60SH x 1-2, f/b active stretch to hip ER's Comments Extra time to obtain best tolerated stretch tolerated SKTC stretch Supine Exercise Name SKTC Side right Reps/Minutes 30 x 2 Comments Extra time to obtain best tolerated stretch tolerated Prone Exercises Hip IR stretch Prone Exercise Name Active hip IR (R>L) Side bilateral Reps/Minutes 2' Sidelying Exercises L Hip AB Sidelying Exercise Name L hip AB for Left L/S paraspinal strengthening Equipment Used Pillow btn legs Reps/Minutes 5 SH x 8 Manual Therapy Treatment Soft Tissue Mobilization R hip IR's Body Location R hip IR's Mobilization Type Other Intensity/Depth Moderate Body Position Prone Comments ZEKE fascial release stretch. Ilipsoas Release Body Location Bilateral Ilipsoas release: L/ S & lesser trochanter region of femur Mobilization Type Sustained Pressure Intensity/Depth Moderate Body Position Supine on pillows PT-OP-R Modalities Start: 04/03/22 17:51 Freq: Status: Active Protocol: Document 05/04/22 09:06 LRN (Rec: 05/04/22 09:49 LRN [id number]) Electric Stimulation Electric Stimulation Interferential Current (IFC) Body Location [L5-S1] Duration (Minutes) 15 Intensity 14 Target/Sweep Sweep Patient Position Hooklying Combined With Heat/Cold Hot Pack Comments Legs on bolster PT-OP-T Assessment and Plan Start: 04/03/22 17:51 Freq: Status: Active Protocol: Document 05/04/22 09:06 LRN (Rec: 05/04/22 09:49 LRN [id number]) Physical Therapy Assessment Goals Three Impairment Decreased core/hip AB strength . Impairment Loss of core stability with MMT of LE's and hip AB is 3/5 bilaterally. Short Term Goal (STG) Improve bilateral hip AB strength to 4/5, with pt able to tolerate standing > 15 minutes, prior to needing to sit down. STG Duration 05/26/22 Prison Goal (LTG) Improve core stability with the pt able to play pickleball without an increase in LBP or lateral thigh pain. LTG Duration 07/07/22 Two Impairment Pain limiting function Impairment SHELLEY score is 32/100, (16/50), 20-39% impaired of score 20-39 Short Term Goal (STG) Pt will be educated in pain management techniques ( modalities and day/night proper posturing). (04/17/22: Pt educated in pain management techniques for day /night) (04/20/22: Pt educated in proper posturing and discussed use of MH/ice for any position). STG Duration 05/02/22 (04/20/22: MET GOAL). Prison Goal (LTG) Improve SHELLEY score to 19/100, ( 8/50) or less. LTG Duration 07/07/22 One Impairment Lacks appropriate self care program Short Term Goal (STG) Pt will be educated in proper body mechanics for daily activities. (04/17/22: Pt educated in proper transfers stand<>Sit) (04/20/22: Pt educated in proper body mechanics). STG Duration 04/28/22 (04/20/22: MET GOAL) Operations Lead Goal (LTG) Pt will be independent in a self care HEP. (04/20/22: Pt I/S in Iliopsoas stretch and pt chooses not to have handout). (04/24/22: HEP: Piriformis ( knee to opp shldr, Lat hip stretch, Fig 4, & Ilipsoas stretch; sidelie hip AB for scoliosis). (04/27/22: Reissued sidelie hip AB with I/S for stretch to R lateral trunk/paraspinals & L row w/R knee & hand on plinth, I/S in standing L hip ext/AB holds with upright trunk posture) LTG Duration 07/07/22 (04/27/22: Progressed) Assessment Summary Assessment Pt shows improvement in her positioning for R hip stretch with ER (Fig 4), and without back pain. Pt back pain is less, today 2/10 and after therapy 0/10. Pt improving on Simon flex ex program. Physical Therapy Plan Frequency and Duration Frequency of Treatment 2x/Week Plan of Care Start Date 04/08/22 Plan of Care End Date 07/07/22 Next Visit Focus/Plan Next Note Type Treatment Note Next Visit Plan Review HEP: (for Scoliosis) L hip AB strengthening, trunk L SB & L row. Add L lower trunk rot stretch and body mechanics training for pickle ball play. Manual-Iliopsoas release if needed; STM of R LB and R rotators & QL/L Gluteals, ?ev IT Bands. Exer-Core & pelvic stab to improve tolerance to recreational activities. Modalities-End MH or Ice and IFES [L5-S1].
--- NOTE | 2022-05-10 09:00 | PT.OTN ---
Current Diagnoses Low back pain, unspecified (05/10/22) Abnormal electromyogram [EMG] (05/10/22) Physical Therapy Treatment Note PT-OP-A Visit Information Start: 04/03/22 17:51 Freq: Status: Active Protocol: Document 05/10/22 08:13 SP (Rec: 05/10/22 09:04 SP [id number]) Out-Patient Physical Therapy Visit Information Visit Information Visit Type Treatment Note Visit Start Time 08:13 Visit Stop Time 09:00 Total Visit Minutes 47 Visit Number 8 Number of INDUSTRIAL SAFETY AND HEALTH MANAGER Visits 1 Evaluation Information Evaluation Date 04/07/22 Precautions Precautions Arthritis, Lami 1979, Bam meniscus repair , bilateral bunionectomy , reattached L foot 1951. PT-OP-B Current Condition Start: 04/03/22 17:51 Freq: Status: Active Protocol: Document 04/27/22 09:05 LRN (Rec: 04/27/22 11:11 LRN [id number]) Current Condition History of Current Condition Onset Date ~1 yr ago Current Complaints LBP a yr ago. Recent Lateral thigh and posterior knee pain bilaterally. History of Current Condition Insidous onset of LBP & LE pain that has continued to worsen. Pt states it is not as bad as prior to her back surgery in 1979 (L4-L5 laminectomy), but she is fearful it is worsening. Chronic LBP for 20 yrs, recent pt report that EMG study showed L5-S1 lesion-ganglion interference. Prior Treatments and Tests EMG of 12/15/21: EMG report indicates Bam L5 & S1 spinal lesions affecting anter & meal grinder tender primary rami w/ evidence of ongoing dnervation in bam TA/TFL/TP/medial gastrocnemius/glueus max/Lower LS paraspinal ms; results suggestive of chronic pathology. Bam chronic L4 spinal n lesions w/o evidence of ongoing denervation and evidence of ongoing reinnervation. PT-OP-C Subjective Start: 04/03/22 17:51 Freq: Status: Active Protocol: Document 05/10/22 08:13 SP (Rec: 05/10/22 09:04 SP [id number]) OP-PT Subjective Patient Comments Patient Comments Pt reported doing little better, pain still there. 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 HEP stretching is fine , no problem. PT-OP-J Posture/Palpation/Skin Start: 04/03/22 17:51 Freq: Status: Active Protocol: Document 04/24/22 09:05 LRN (Rec: 04/24/22 09:51 LRN [id number]) Posture Evaluation Comments Posture Comments C-curve of L/S with apex on the left ~L3. PT-OP-K Range of Motion Start: 04/03/22 17:51 Freq: Status: Active Protocol: Document 05/04/22 09:06 LRN (Rec: 05/04/22 09:49 LRN [id number]) Hip Goniometric Range of Motion Hip Right Passive Testing Position Supine Internal Rotation 35 External Rotation 38 Left Passive Testing Position Supine Internal Rotation 15 External Rotation 65 PT-OP-M Strength Start: 04/03/22 17:51 Freq: Status: Active Protocol: Document 04/07/22 09:45 LRN (Rec: 04/08/22 10:12 LRN [id number]) Trunk Strength Trunk Manual Muscle Testing Core Stabilization Loss of core stability with MMT of hips. Hip Strength Hip Manual Muscle Testing Right Abduction 3 Fair Comments Generally 5/5, except as indicated above. Left Abduction 3 Fair Comments Generally 5/5, except as indicated above. Knee Strength Knee Manual Muscle Testing Right Comments Generally 5/5. Left Comments Generally 5/5. PT-OP-Q Treatments Start: 04/03/22 17:51 Freq: Status: Active Protocol: Document 05/10/22 08:13 SP (Rec: 05/10/22 09:04 SP [id number]) Therapeutic Exercises Supine Exercises Piriformis stretch Supine Exercise Name Piriformis stretch (knee to opp shldr & ankle over knee stretch) Side right Reps/Minutes 60SH x 1 each Comments Extra time to obtain best position and tolerated stretch tolerated Fig 4 stretch Supine Exercise Name Fig 4 stretch Side bilateral Resistance R better but more limted than L Reps/Minutes 60SH x 1-2, f/b active stretch to hip ER's Comments pt able to place R foot over opp thigh, Iliopsoas stretch Supine Exercise Name Eliazar Test stretch (from side of plinth) R>L. Side right Reps/Minutes 60 x3 R- stated will do later on L Comments good feedback stretch, stated does at gym off elevated bench SKTC stretch Supine Exercise Name SKTC Side right Reps/Minutes 30 x 2 Comments Extra time to obtain best tolerated stretch tolerated Standing Exercises ITB, TFL stretch Standing Exercise Name added side facing wall Side right Reps/Minutes 60 x3 Comments Time spent for positioning, upright and hold /w breath for effective stretc self STMs Standing Exercise Name added to HEP: racquetball wall to TFL Equipment Used rolling pin does at home:quad, ITB, calves, added ball wall/ sit chair today Reps/Minutes 5 min Comments good feedback response Manual Therapy Treatment Soft Tissue Mobilization Lateral thigh/lower legs Body Location R TFL, ITB, Adductors Mobilization Type Strumming,Sustained Pressure, Trigger Point Release Intensity/Depth Moderate Body Position Hooklying Comments good releases, instruction self ball wall and demonstrated good form and response for home/work application Self-Care/Home Management Treatment Education Patient Education Home Exercise Program Other Education Initiated self STMs ball wall/ sit for postero/lateral hip if needed, good response. Added ITB and TFL streth standing at wall, good form/ response. Further discussed use pillows between BLEs, under ribcage on side, under upper thighs in supine for back/hip alignment health/ comfort. PT-OP-R Modalities Start: 04/03/22 17:51 Freq: Status: Active Protocol: Document 05/04/22 09:06 LRN (Rec: 05/04/22 09:49 LRN [id number]) Electric Stimulation Electric Stimulation Interferential Current (IFC) Body Location [L5-S1] Duration (Minutes) 15 Intensity 14 Target/Sweep Sweep Patient Position Hooklying Combined With Heat/Cold Hot Pack Comments Legs on bolster PT-OP-T Assessment and Plan Start: 04/03/22 17:51 Freq: Status: Active Protocol: Document 05/10/22 08:13 SP (Rec: 05/10/22 09:04 SP [id number]) Physical Therapy Assessment Goals Three Impairment Decreased core/hip AB strength . Impairment Loss of core stability with MMT of LE's and hip AB is 3/5 bilaterally. Short Term Goal (STG) Improve bilateral hip AB strength to 4/5, with pt able to tolerate standing > 15 minutes, prior to needing to sit down. STG Duration 05/26/22 Surgeon Chief Goal (LTG) Improve core stability with the pt able to play pickleball without an increase in LBP or lateral thigh pain. LTG Duration 07/07/22 Two Impairment Pain limiting function Impairment SHELLEY score is 32/100, (16/50), 20-39% impaired of score 20-39 Short Term Goal (STG) Pt will be educated in pain management techniques ( modalities and day/night proper posturing). (04/17/22: Pt educated in pain management techniques for day /night) (04/20/22: Pt educated in proper posturing and discussed use of MH/ice for any position). STG Duration 05/02/22 (04/20/22: MET GOAL). Surgeon Chief Goal (LTG) Improve SHELLEY score to 19/100, ( 8/50) or less. LTG Duration 07/07/22 One Impairment Lacks appropriate self care program Short Term Goal (STG) Pt will be educated in proper body mechanics for daily activities. (04/17/22: Pt educated in proper transfers stand<>Sit) (04/20/22: Pt educated in proper body mechanics). STG Duration 04/28/22 (04/20/22: MET GOAL) Surgeon Chief Goal (LTG) Pt will be independent in a self care HEP. (04/20/22: Pt I/S in Iliopsoas stretch and pt chooses not to have handout). (04/24/22: HEP: Piriformis ( knee to opp shldr, Lat hip stretch, Fig 4, & Ilipsoas stretch; sidelie hip AB for scoliosis). (04/27/22: Reissued sidelie hip AB with I/S for stretch to R lateral trunk/paraspinals & L row w/R knee & hand on plinth, I/S in standing L hip ext/AB holds with upright trunk posture) LTG Duration 07/07/22 (04/27/22: Progressed) Assessment Summary Assessment Pt responded well to stretching HEP review, intiated ITB/TFL stretches and good manual releases, provided instruction with good demonstration of self care and significantly less tension end tx, will apply at home of ITB, Physical Therapy Plan Frequency and Duration Frequency of Treatment 2x/Week Plan of Care Start Date 04/08/22 Plan of Care End Date 07/07/22 Therapeutic Interventions Therapeutic Interventions Aquatic Therapy,Home Exercise Program,Joint Mobilizations, Manual Therapy,Neuromuscular Re-education,Patient/Caregiver Education,Self-Care/Home Management,Soft Tissue Mobilization,Therapeutic Activities,Therapeutic Exercises Modalities Cold Pack/Ice Massage,Electric Stimulation,Hot Packs, Ultrasound Next Visit Focus/Plan Next Note Type Treatment Note Next Visit Plan Review HEP, added ITB stretch and self rolling ball wall: POC: (for Scoliosis) L hip AB strengthening, trunk L SB & L row. Add L lower trunk rot stretch and body mechanics training for pickle ball play. Manual-Iliopsoas release if needed; STM of R LB and R rotators & QL/L Gluteals, ?bam IT Bands. Exer-Core & pelvic stab to improve tolerance to recreational activities. Modalities-End MH or Ice and IFES [L5-S1].
--- NOTE | 2022-05-12 08:18 | PT.OTN ---
Current Diagnoses Low back pain, unspecified (05/12/22) Abnormal electromyogram [EMG] (05/12/22) Physical Therapy Treatment Note PT-OP-A Visit Information Start: 04/03/22 17:51 Freq: Status: Active Protocol: Document 05/12/22 07:33 SP (Rec: 05/12/22 08:20 SP [id number]) Out-Patient Physical Therapy Visit Information Visit Information Visit Type Treatment Note Visit Note PN 10th visit next visit Visit Start Time 07:33 Visit Stop Time 08:18 Total Visit Minutes 45 Visit Number 9 Number of PMO LEAD Visits 2 Evaluation Information Evaluation Date 04/07/22 Precautions Precautions Arthritis, Lami 1979, Ev meniscus repair , bilateral bunionectomy , reattached L foot 1951. PT-OP-B Current Condition Start: 04/03/22 17:51 Freq: Status: Active Protocol: Document 04/27/22 09:05 LRN (Rec: 04/27/22 11:11 LRN [id number]) Current Condition History of Current Condition Onset Date ~1 yr ago Current Complaints LBP a yr ago. Recent Lateral thigh and posterior knee pain bilaterally. History of Current Condition Insidous onset of LBP & LE pain that has continued to worsen. Pt states it is not as bad as prior to her back surgery in 1979 (L4-L5 laminectomy), but she is fearful it is worsening. Chronic LBP for 20 yrs, recent pt report that EMG study showed L5-S1 lesion-ganglion interference. Prior Treatments and Tests EMG of 12/15/21: EMG report indicates Ev L5 & S1 spinal lesions affecting anter & claim investigator primary rami w/ evidence of ongoing dnervation in ev TA/TFL/TP/medial gastrocnemius/glueus max/Lower LS paraspinal ms; results suggestive of chronic pathology. Ev chronic L4 spinal n lesions w/o evidence of ongoing denervation and evidence of ongoing reinnervation. PT-OP-C Subjective Start: 04/03/22 17:51 Freq: Status: Active Protocol: Document 05/12/22 07:33 SP (Rec: 05/12/22 08:20 SP [id number]) OP-PT Subjective Patient Comments Patient Comments Pt mentions that feeling alot better, doing self massage and stretches. Wants to review ITB standing stretch, not sure doing right, not feel stretch . PT-OP-J Posture/Palpation/Skin Start: 04/03/22 17:51 Freq: Status: Active Protocol: Document 04/24/22 09:05 LRN (Rec: 04/24/22 09:51 LRN [id number]) Posture Evaluation Comments Posture Comments C-curve of L/S with apex on the left ~L3. PT-OP-K Range of Motion Start: 04/03/22 17:51 Freq: Status: Active Protocol: Document 05/04/22 09:06 LRN (Rec: 05/04/22 09:49 LRN [id number]) Hip Goniometric Range of Motion Hip Right Passive Testing Position Supine Internal Rotation 35 External Rotation 38 Left Passive Testing Position Supine Internal Rotation 15 External Rotation 65 PT-OP-M Strength Start: 04/03/22 17:51 Freq: Status: Active Protocol: Document 04/07/22 09:45 LRN (Rec: 04/08/22 10:12 LRN [id number]) Trunk Strength Trunk Manual Muscle Testing Core Stabilization Loss of core stability with MMT of hips. Hip Strength Hip Manual Muscle Testing Right Abduction 3 Fair Comments Generally 5/5, except as indicated above. Left Abduction 3 Fair Comments Generally 5/5, except as indicated above. Knee Strength Knee Manual Muscle Testing Right Comments Generally 5/5. Left Comments Generally 5/5. PT-OP-Q Treatments Start: 04/03/22 17:51 Freq: Status: Active Protocol: Document 05/12/22 07:33 SP (Rec: 05/12/22 08:20 SP [id number]) Therapeutic Exercises Supine Exercises clamshell Supine Exercise Name BKFO- added to HEP Side bilateral Resistance L4 loop Reps/Minutes 2x10 Comments cued TA and neutral pelvis- good feedback relieves lat hip mus. Piriformis stretch Supine Exercise Name Piriformis stretch (knee to opp shldr & ankle over knee stretch) Side right Reps/Minutes 60SH x 1 each Comments Extra time to obtain best position and tolerated stretch tolerated Fig 4 stretch Supine Exercise Name Fig 4 stretch Side bilateral Resistance R better but more limted than L Reps/Minutes 60SH x 1-2, f/b active stretch to hip ER's Comments pt able to place R foot over opp thigh, Iliopsoas stretch Supine Exercise Name Eliazar Test stretch (from side of plinth) R>L. Side right Reps/Minutes 60 x3 R- stated will do later on L Comments good feedback stretch, stated does at gym off elevated bench SKTC stretch Supine Exercise Name SKTC Side right Reps/Minutes 30 x 2 Comments good feedback stretch Sidelying Exercises L Hip AB Sidelying Exercise Name L hip AB for Left L/S paraspinal strengthening Equipment Used Pillow btn legs Reps/Minutes 5 SH x 8 Comments cued for trunk/ L alignment Standing Exercises lateral hip hike at wall Standing Exercise Name added to HEP Side left Resistance 55cm ball wall- AROM Equipment Used cued set up R hip at wall leaned into ball, L hip effort elev R pelvis Reps/Minutes x10 reps Comments cued set up and proper form- good feedback glut med work, painfree/ tiring band walk Standing Exercise Name added to HEP Resistance TB #4 Reps/Minutes 10ft x4 laps Comments good feedback response, glut med effort, painfree/tiring. self STMs Standing Exercise Name added to HEP: racquetball wall to L TFL, piriformis, glut med Equipment Used knows can use rolling pin and does leg Reps/Minutes 5 min Comments good feedback response L row/L knee on chair Standing Exercise Name L Row w/R hand & R knee on support in 1/2 hands/knees position Side right Resistance TB #5 Reps/Minutes 20x Comments cued tall pelvis forward over knee, slow row for muscle fac- good core/hip L paraspinal strengthening Standing Exercise Name L arm overhead and hip AB/ext Side left Reps/Minutes 5SH x 15 Comments DC'd due to pain in LB next day Self-Care/Home Management Treatment Education Patient Education Home Exercise Program Other Education Added side hip abd, supine clamshell #4 TB, band walk #4 TB, lateral pelvis elevation at wall hip hikes w/ Tball 55cm, reviewed HEP: stretching and standing single arm row with opp LE on chair. PT-OP-R Modalities Start: 04/03/22 17:51 Freq: Status: Active Protocol: Document 05/04/22 09:06 LRN (Rec: 05/04/22 09:49 LRN [id number]) Electric Stimulation Electric Stimulation Interferential Current (IFC) Body Location [L5-S1] Duration (Minutes) 15 Intensity 14 Target/Sweep Sweep Patient Position Hooklying Combined With Heat/Cold Hot Pack Comments Legs on bolster PT-OP-T Assessment and Plan Start: 04/03/22 17:51 Freq: Status: Active Protocol: Document 05/12/22 07:33 SP (Rec: 05/12/22 08:20 SP [id number]) Physical Therapy Assessment Goals Three Impairment Decreased core/hip AB strength . Impairment Loss of core stability with MMT of LE's and hip AB is 3/5 bilaterally. Short Term Goal (STG) Improve bilateral hip AB strength to 4/5, with pt able to tolerate standing > 15 minutes, prior to needing to sit down. STG Duration 05/26/22 Retirement Goal (LTG) Improve core stability with the pt able to play pickleball without an increase in LBP or lateral thigh pain. LTG Duration 07/07/22 Two Impairment Pain limiting function Impairment SHELLEY score is 32/100, (16/50), 20-39% impaired of score 20-39 Short Term Goal (STG) Pt will be educated in pain management techniques ( modalities and day/night proper posturing). (04/17/22: Pt educated in pain management techniques for day /night) (04/20/22: Pt educated in proper posturing and discussed use of MH/ice for any position). STG Duration 05/02/22 (04/20/22: MET GOAL). Retirement Goal (LTG) Improve SHELLEY score to 19/100, ( 8/50) or less. LTG Duration 07/07/22 One Impairment Lacks appropriate self care program Short Term Goal (STG) Pt will be educated in proper body mechanics for daily activities. (04/17/22: Pt educated in proper transfers stand<>Sit) (04/20/22: Pt educated in proper body mechanics). STG Duration 04/28/22 (04/20/22: MET GOAL) Dynamotor Repairer Goal (LTG) Pt will be independent in a self care HEP. (04/20/22: Pt I/S in Iliopsoas stretch and pt chooses not to have handout). (04/24/22: HEP: Piriformis ( knee to opp shldr, Lat hip stretch, Fig 4, & Ilipsoas stretch; sidelie hip AB for scoliosis). (04/27/22: Reissued sidelie hip AB with I/S for stretch to R lateral trunk/paraspinals & L row w/R knee & hand on plinth, I/S in standing L hip ext/AB holds with upright trunk posture) 05/12/22: added side Hip abd, standing glut med hip elevation w/ 45cm tball LTG Duration 07/07/22 (05/12/22: Progressed ) Assessment Summary Assessment Pt responded well to self STMs then focus on L glut med strengthening with no adverse affects. She reports L feels better after exercises. Cues as needed for set up and proper form stretches: Satinder, fig 4. She was able to increase resistance to supine clamshell and add standing glut med hip elevation (past HEP review worked well) muscle tiring painfree. Physical Therapy Plan Frequency and Duration Frequency of Treatment 2x/Week Plan of Care Start Date 04/08/22 Plan of Care End Date 07/07/22 Therapeutic Interventions Therapeutic Interventions Aquatic Therapy,Home Exercise Program,Joint Mobilizations, Manual Therapy,Neuromuscular Re-education,Patient/Caregiver Education,Self-Care/Home Management,Soft Tissue Mobilization,Therapeutic Activities,Therapeutic Exercises Modalities Cold Pack/Ice Massage,Electric Stimulation,Hot Packs, Ultrasound Next Visit Focus/Plan Next Note Type Progress Note Next Visit Plan Review HEP, added glut med resisted clamshell and stand elevation at wall w/ Tball, side L hip ABD. POC: (for Scoliosis) L hip AB strengthening, trunk L SB & L row. Add L lower trunk rot stretch and body mechanics training for pickle ball play. Manual-Iliopsoas release if needed; STM of R LB and R rotators & QL/L Gluteals, ?ev IT Bands. Exer-Core & pelvic stab to improve tolerance to recreational activities. Modalities-End MH or Ice and IFES [L5-S1].
--- NOTE | 2022-05-17 10:32 | PT.OTN ---
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 PT-OP-B Current Condition Start: 04/03/22 17:51 Freq: Status: Active Protocol: Document 04/27/22 09:05 LRN (Rec: 04/27/22 11:11 LRN [id number]) Current Condition History of Current Condition Onset Date ~1 yr ago Current Complaints LBP a yr ago. Recent Lateral thigh and posterior knee pain bilaterally. History of Current Condition Insidous onset of LBP & LE pain that has continued to worsen. Pt states it is not as bad as prior to her back surgery in 1979 (L4-L5 laminectomy), but she is fearful it is worsening. Chronic LBP for 20 yrs, recent pt report that EMG study showed L5-S1 lesion-ganglion interference. 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 Ev chronic L4 spinal n lesions w/o evidence of ongoing denervation and evidence of ongoing reinnervation. 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 Is rowing at home machine and finding arm and some leg stiffness and tiring muscles haven't used in while but no pain. PT-OP-J Posture/Palpation/Skin Start: 04/03/22 17:51 Freq: Status: Active Protocol: Document 04/24/22 09:05 LRN (Rec: 04/24/22 09:51 LRN [id number]) Posture Evaluation Comments Posture Comments C-curve of L/S with apex on the left ~L3. PT-OP-K Range of Motion Start: 04/03/22 17:51 Freq: Status: Active Protocol: Document 05/04/22 09:06 LRN (Rec: 05/04/22 09:49 LRN [id number]) Hip Goniometric Range of Motion Hip Right Passive Testing Position Supine Internal Rotation 35 External Rotation 38 Left Passive Testing Position Supine Internal Rotation 15 External Rotation 65 PT-OP-M Strength Start: 04/03/22 17:51 Freq: Status: Active Protocol: Document 04/07/22 09:45 LRN (Rec: 04/08/22 10:12 LRN [id number]) Trunk Strength Trunk Manual Muscle Testing Core Stabilization Loss of core stability with MMT of hips. Hip Strength Hip Manual Muscle Testing Right Abduction 3 Fair Comments Generally 5/5, except as indicated above. Left Abduction 3 Fair Comments Generally 5/5, except as indicated above. Knee Strength Knee Manual Muscle Testing Right Comments Generally 5/5. Left Comments Generally 5/5. PT-OP-Q Treatments Start: 04/03/22 17:51 Freq: Status: Active Protocol: Document 05/17/22 09:52 SP (Rec: 05/17/22 10:33 SP [id number]) Therapeutic Exercises Supine Exercises clamshell Supine Exercise Name BKFO- added to HEP Side bilateral Resistance Blue TB loop (#4 at home) Reps/Minutes x20 reps Comments cued TA and neutral pelvis- good feedback relieves lat hip mus. Piriformis stretch Supine Exercise Name Piriformis stretch (knee to opp shldr & ankle over knee stretch) Side right Reps/Minutes 60SH x 1 each Comments good stretch Fig 4 stretch Supine Exercise Name Fig 4 stretch Side bilateral Resistance R better but more limted than L Equipment Used use strap at ankle Reps/Minutes 60SH x 1-[address] to [address] R foot over opp leg below knee more open stretch Iliopsoas stretch Supine Exercise Name Eliazar Test stretch (from side of plinth) R>L. Side bilateral Reps/Minutes 60 x2 Comments good feedback stretch, stated does at gym off elevated bench SKTC stretch Supine Exercise Name SKTC Side bilateral Reps/Minutes 30 x 2 Comments good feedback stretch Sidelying Exercises L Hip AB Sidelying Exercise Name L hip AB for Left L/S paraspinal strengthening Equipment Used Pillow btn legs Reps/Minutes 5 SH x 8 Comments cued for trunk/ L alignment Standing Exercises lateral hip hike at wall Standing Exercise Name reviewed HEP Side bilateral Resistance blue marble ball wall- AROM Equipment Used cued set up R hip at wall leaned into ball, L hip effort elev R pelvis Reps/Minutes 5 reps x2 sets alternating Comments cued set up and proper form- good feedback glut med work, painfree/ tiring band walk Standing Exercise Name reviewed HEP Resistance TB #4 Reps/Minutes 10ft x4 laps Comments good feedback response, glut med effort, painfree/tiring. Squat training Standing Exercise Name sit<>stand Equipment Used mesh chair, arms across chest Reps/Minutes 2x5 reps Comments cued hip hinge, knee flexion to allow strength get out of boat Therapeutic Activity Therapeutic Activity get out of kayak Name future Comments box seat, blue mat, inflated mattress, balance beam Manual Therapy Treatment Soft Tissue Mobilization Ilipsoas Release Body Location Bilateral Ilipsoas release: L/ S & lesser trochanter region of femur Mobilization Type Sustained Pressure Intensity/Depth Moderate Body Position Supine Lateral thigh/lower legs Body Location R TFL, ITB, Adductors Mobilization Type Strumming,Sustained Pressure, Trigger Point Release Intensity/Depth Moderate Body Position Supine Comments good releases, verbalized performing self rolling pin and ball onw all Self-Care/Home Management Treatment Education Patient Education Home Exercise Program Other Education Discussed perform ROM pre pickle ball: trunk rotation ROM, side/ forward lunges, leg and arm swings/circles warm up. Verbalized understanding. PT-OP-R Modalities Start: 04/03/22 17:51 Freq: Status: Active Protocol: Document 05/04/22 09:06 LRN (Rec: 05/04/22 09:49 LRN [id number]) Electric Stimulation Electric Stimulation Interferential Current (IFC) Body Location [L5-S1] Duration (Minutes) 15 Intensity 14 Target/Sweep Sweep Patient Position Hooklying Combined With Heat/Cold Hot Pack Comments Legs on bolster PT-OP-T Assessment and Plan Start: 04/03/22 17:51 Freq: Status: Active Protocol: Document 05/17/22 09:52 SP (Rec: 05/17/22 10:33 SP [id number]) Physical Therapy Assessment Goals Three Impairment Decreased core/hip AB strength . Impairment Loss of core stability with MMT of LE's and hip AB is 3/5 bilaterally. Short Term Goal (STG) Improve bilateral hip AB strength to 4/5, with pt able to tolerate standing > 15 minutes, prior to needing to sit down. 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 05/17/22: will be try picklyball for 1 hr later today. LTG Duration 07/07/22 trialing today Two Impairment Pain limiting function Impairment SHELLEY score is 32/100, (16/50), 20-39% impaired of score 20-39 Short Term Goal (STG) Pt will be educated in pain management techniques ( modalities and day/night proper posturing). (04/17/22: Pt educated in pain management techniques for day /night) (04/20/22: Pt educated in proper posturing and discussed use of MH/ice for any position). STG Duration 05/02/22 (04/20/22: MET GOAL). Fdc Goal (LTG) Improve SHELLEY score to 19/100, ( 8/50) or less. LTG Duration 07/07/22 One Impairment Lacks appropriate self care program Short Term Goal (STG) Pt will be educated in proper body mechanics for daily activities. (04/17/22: Pt educated in proper transfers stand<>Sit) (04/20/22: Pt educated in proper body mechanics). STG Duration 04/28/22 (04/20/22: MET GOAL) Fdc Goal (LTG) Pt will be independent in a self care HEP. (04/20/22: Pt I/S in Iliopsoas stretch and pt chooses not to have handout). (04/24/22: HEP: Piriformis ( knee to opp shldr, Lat hip stretch, Fig 4, & Ilipsoas stretch; sidelie hip AB for scoliosis). (04/27/22: Reissued sidelie hip AB with I/S for stretch to R lateral trunk/paraspinals & L row w/R knee & hand on plinth, I/S in standing L hip ext/AB holds with upright trunk posture) 05/12/22: added side Hip abd, standing glut med hip elevation w/ small blut marble ball, band walk 05/17/22: Reviewed self eliazar stretch. LTG Duration 07/07/22 (05/17/22: Progressed) Assessment Summary Assessment Pt responded well to manual, HEP reviewed, cues for trunk alignment, core and hip abd fac to allow decrease side bending trunk sway with gait. Future tx pt wants to work on getting out of kayak for proper form andnot have to roll on side. Physical Therapy Plan Frequency and Duration Frequency of Treatment 2x/Week Plan of Care Start Date 04/08/22 Plan of Care End Date 07/07/22 Therapeutic Interventions Therapeutic Interventions Aquatic Therapy,Home Exercise Program,Joint Mobilizations, Manual Therapy,Neuromuscular Re-education,Patient/Caregiver Education,Self-Care/Home Management,Soft Tissue Mobilization,Therapeutic Activities,Therapeutic Exercises Modalities Cold Pack/Ice Massage,Electric Stimulation,Hot Packs, Ultrasound Next Visit Focus/Plan Next Note Type Progress Note Next Visit Plan Review HEP trunk rotation next . POC: (for Scoliosis) L hip AB strengthening, trunk L SB & L row. Add L lower trunk rot stretch and body mechanics training for pickle ball play. Manual-Iliopsoas release if needed; STM of R LB and R rotators & QL/L Gluteals, ?ev IT Bands. Exer-Core & pelvic stab to improve tolerance to recreational activities. Modalities-End MH or Ice and IFES [L5-S1].
--- NOTE | 2022-05-29 16:07 | PT.OTN ---
Current Diagnoses Low back pain, unspecified (05/29/22) Abnormal electromyogram [EMG] (05/29/22) Physical Therapy Treatment Note PT-OP-A Visit Information Start: 04/03/22 17:51 Freq: Status: Active Protocol: Document 05/29/22 15:16 LRN (Rec: 05/29/22 16:07 LRN [id number]) Out-Patient Physical Therapy Visit Information Visit Information Visit Type Treatment Note Visit Start Time 15:16 Visit Stop Time 15:47 Total Visit Minutes 31 Visit Number 11 Evaluation Information Evaluation Date 04/07/22 Precautions Precautions Arthritis, Lami 1979, Bam meniscus repair , bilateral bunionectomy , reattached L foot 1951. PT-OP-B Current Condition Start: 04/03/22 17:51 Freq: Status: Active Protocol: Document 04/27/22 09:05 LRN (Rec: 04/27/22 11:11 LRN [id number]) Current Condition History of Current Condition Onset Date ~1 yr ago Current Complaints LBP a yr ago. Recent Lateral thigh and posterior knee pain bilaterally. History of Current Condition Insidous onset of LBP & LE pain that has continued to worsen. Pt states it is not as bad as prior to her back surgery in 1979 (L4-L5 laminectomy), but she is fearful it is worsening. Chronic LBP for 20 yrs, recent pt report that EMG study showed L5-S1 lesion-ganglion interference. 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 Bam chronic L4 spinal n lesions w/o evidence of ongoing denervation and evidence of ongoing reinnervation. PT-OP-C Subjective Start: 04/03/22 17:51 Freq: Status: Active Protocol: Document 05/29/22 15:16 LRN (Rec: 05/29/22 16:07 LRN [id number]) OP-PT Subjective Patient Comments Patient Comments Very little pain in legs and when present it is lower legs. Can trace tenderness down sides of LE's. Patient Questionnaires Oswestry Low Back Index Oswestry Score 16 Oswestry Impairment 1 to 19% Impaired (Score 1-19) OP-PT Pain Assessment Location Lateral thighs and lower legs Pain Location Details Lateral LE's Intensity 1 Scale Used Numeric (0 - 10) Description Tender Frequency Intermittent Low back Pain Location Details Bilateral LB Intensity 2 Scale Used Numeric (0 - 10) Description Aching Frequency Constant PT-OP-J Posture/Palpation/Skin Start: 04/03/22 17:51 Freq: Status: Active Protocol: Document 04/24/22 09:05 LRN (Rec: 04/24/22 09:51 LRN [id number]) Posture Evaluation Comments Posture Comments C-curve of L/S with apex on the left ~L3. PT-OP-K Range of Motion Start: 04/03/22 17:51 Freq: Status: Active Protocol: Document 05/04/22 09:06 LRN (Rec: 05/04/22 09:49 LRN [id number]) Hip Goniometric Range of Motion Hip Right Passive Testing Position Supine Internal Rotation 35 External Rotation 38 Left Passive Testing Position Supine Internal Rotation 15 External Rotation 65 PT-OP-M Strength Start: 04/03/22 17:51 Freq: Status: Active Protocol: Document 05/29/22 15:16 LRN (Rec: 05/29/22 16:07 LRN [id number]) Hip Strength Hip Manual Muscle Testing Right Flexion (L2) 5 Normal Extension (S1) 5 Normal Abduction 5 Normal Adduction 5 Normal External Rotation 5 Normal Internal Rotation 5 Normal Left Flexion (L2) 5 Normal Extension (S1) 5 Normal Abduction 5 Normal Adduction 5 Normal External Rotation 5 Normal Internal Rotation 4+ Good+ PT-OP-Q Treatments Start: 04/03/22 17:51 Freq: Status: Active Protocol: Document 05/29/22 15:16 LRN (Rec: 05/29/22 16:07 LRN [id number]) Therapeutic Exercises Sitting Exercises Ankle AROM w/hamstring stretch Sitting Exercise Name Ankle AROM w/Hamstring stretch Side bilateral Reps/Minutes 10x each Standing Exercises Neck ROM Standing Exercise Name Neck Rot and SB Side bilateral Reps/Minutes 1x each Arm circles Standing Exercise Name Arms circles Reps/Minutes Cuing for scapular retraction and proper head positioning Shoulder rolls Standing Exercise Name Shoulder rolls Fwd/Bkwd Side bilateral Reps/Minutes 10x each Trunk rot stretch Standing Exercise Name Standing trunk rot stretch Side bilateral Reps/Minutes 5x each L SB stretch Standing Exercise Name SB stretch Side bilateral Reps/Minutes 5x each Self-Care/Home Management Treatment Education Patient Education Home Exercise Program Activities Self-Care/Home Management Activities Issued & reviewed HEP: General stretches. PT-OP-R Modalities Start: 04/03/22 17:51 Freq: Status: Active Protocol: Document 05/04/22 09:06 LRN (Rec: 05/04/22 09:49 LRN [id number]) Electric Stimulation Electric Stimulation Interferential Current (IFC) Body Location [L5-S1] Duration (Minutes) 15 Intensity 14 Target/Sweep Sweep Patient Position Hooklying Combined With Heat/Cold Hot Pack Comments Legs on bolster PT-OP-T Assessment and Plan Start: 04/03/22 17:51 Freq: Status: Active Protocol: Document 05/29/22 15:16 LRN (Rec: 05/29/22 16:07 LRN [id number]) Physical Therapy Assessment Rehab Potential Rehabilitation Potential Excellent Evaluation Complexity Number of Personal Factors/Comorbidities 1-2 Number of Body Systems Impaired 1-2 Clinical Presentation at Evaluation Stable Impairments Impairments Pain,ROM Goals Three Impairment Decreased core/hip AB strength . Impairment Loss of core stability with MMT of LE's and hip AB is 3/5 bilaterally. Short Term Goal (STG) Improve bilateral hip AB strength to 4/5, with pt able to tolerate standing > 15 minutes, prior to needing to sit down. 05/29/22: Can stand ~30' prior to needing to sit. Hip strength is 5/5. STG Duration 05/26/22 (05/29/22: MET GOAL) Prison Goal (LTG) Improve core stability with the pt able to play pickleball without an increase in LBP or lateral thigh pain. 05/17/22: will be try picklyball for 1 hr later today. 05/29/22: Played pickleball with no LE pain. LTG Duration 07/07/22 (05/29/22: MET GOAL ) Two Impairment Pain limiting function Impairment SHELLEY score is 32/100, (16/50), 20-39% impaired of score 20-39 Short Term Goal (STG) Pt will be educated in pain management techniques ( modalities and day/night proper posturing). (04/17/22: Pt educated in pain management techniques for day /night) (04/20/22: Pt educated in proper posturing and discussed use of MH/ice for any position). STG Duration 05/02/22 (04/20/22: MET GOAL). Prison Goal (LTG) Improve SHELLEY score to 19/100, ( 8/50) or less. (05/29/22: SHELLEY score is 8/50). LTG Duration 07/07/22 (05/29/22: MET GOAL) One Impairment Lacks appropriate self care program Short Term Goal (STG) Pt will be educated in proper body mechanics for daily activities. (04/17/22: Pt educated in proper transfers stand<>Sit) (04/20/22: Pt educated in proper body mechanics). STG Duration 04/28/22 (04/20/22: MET GOAL) Prison Goal (LTG) Pt will be independent in a self care HEP. (04/20/22: Pt I/S in Iliopsoas stretch and pt chooses not to have handout). (04/24/22: HEP: Piriformis ( knee to opp shldr, Lat hip stretch, Fig 4, & Ilipsoas stretch; sidelie hip AB for scoliosis). (04/27/22: Reissued sidelie hip AB with I/S for stretch to R lateral trunk/paraspinals & L row w/R knee & hand on plinth, I/S in standing L hip ext/AB holds with upright trunk posture) 05/12/22: added side Hip abd, standing glut med hip elevation w/ small blut marble ball, band walk 05/17/22: Reviewed self nadia stretch. LTG Duration 07/07/22 (05/29/22: MET GOAL) Assessment Summary Assessment Pt needed to be seen today for progress to goals and education/placement on a HEP. She has good understanding of general stretch ex's issued today, to help her manage her pain. She has met all her goals and is ready to be placed on her independent HEP. She has very little LE pain and is able to manage her pain on her HEP. Her symptoms are somewhat indicative lumbar involvement, but she was able to gain good relief from her pain with flexibility ex's, soft tissue mobilization, modalities, education, and a HEP. Pt is ready for discharge and placement on her HEP. Physical Therapy Plan Frequency and Duration Frequency of Treatment 2x/Week Plan of Care Start Date 04/08/22 Plan of Care End Date 07/07/22 Therapeutic Interventions Therapeutic Interventions Home Exercise Program,Patient/ Caregiver Education,Self-Care/ Home Management,Therapeutic Exercises Discharge Physical Therapy Discharge Reasons Goals Met Discharge Comments Thank you for your referral.
== END 2022-05-30 09:17 | disposition home or self-care (01) ==
LOC: PHYS 15:15
PROVIDERS: Family Provider Family Medicine; PCP Family Medicine; Referring Provider Family Medicine; Visit Provider Family Medicine
DX: M54.50 Low back pain, unspecified (principal); R94.131 Abnormal electromyogram [EMG]
CPT/HCPCS: 97014; 97110; 97112; 97140; 97162; 97535; G0283

== ENCOUNTER → 2022-06-12 11:49 | Outpatient (CLI) | payer OTHER, MEDICARE, SELFPAY ==
--- NOTE | 2022-06-12 11:52 | DI.MG.S_ITS ---
UNILATERAL LEFT DIGITAL DIAGNOSTIC MAMMOGRAM 3D/2D WITH ADDITIONAL VIEWS: 06/12/2022 CLINICAL: Additional evaluation requested from prior study. Comparison is made to exams dated: 05/25/2022 mammogram, 02/03/2020 mammogram, and 01/28/2014 mammogram - [facility]. There are scattered areas of fibroglandular density in the left breast (category b / 25%-50% glandular tissue). The possible architectural distortion in the left breast posterior depth lateral region seen on the craniocaudal view only is not reproduced and presumably represented superimposed breast tissue. This is not seen in additional views. There also is an oval asymmetry with calcifications which have a rim-like contour in lateral views in the left breast at 2 o'clock middle depth. This is seen in additional views. No other significant masses or calcifications are seen in the breast. IMPRESSION: INCOMPLETE: NEEDS ADDITIONAL IMAGING EVALUATION An ultrasound is recommended to confirm the no longer seen architectural distortion in the left breast posterior depth lateral region seen on the craniocaudal view only. Ultrasound is recommended for full evaluation of this area. This was performed immediately following this exam. The asymmetry in the left breast at 2 o'clock middle depth is most consistent with fibrocystic change but remains indeterminate. An ultrasound is recommended. This was performed immediately following this exam. Based on the Tyrer Cuzick model (a risk assessment model) the patient's lifetime risk is 2.6% and her 10 year risk is 2.4%. According to the ACR, ACS, and NCCN guidelines, an annual breast MRI exam along with mammogram is recommended if the patient's lifetime risk is 20% or greater. This exam was interpreted at Station ID: [id number]. NOTE: For mammograms, a report in lay terms will be sent to the patient. Approximately 15% of breast malignancies will not be visualized mammographically. In the management of a palpable breast mass, a negative mammogram must not discourage biopsy of a clinically suspicious lesion. Electronically Signed By: Heidi canales/:06/12/2022 13:20:57 ACR BI-RADS Category 0: Incomplete 3340F
--- NOTE | 2022-06-12 11:58 | DI.US.S_ITS ---
ULTRASOUND OF LEFT BREAST: 06/12/2022 CLINICAL: Patient returns today to evaluate a focal asymmetry in the left breast. Comparison is made to exams dated: 06/12/2022 mammogram, 02/03/2020 mammogram, 05/25/2022 mammogram, 02/06/2014 mammogram, and 01/28/2014 mammogram - [facility]. Color flow ultrasound of the left breast was performed. Araujo scale images of the real-time examination were reviewed. There is a cluster of oval cysts in the left breast at 2 o'clock posterior depth. This correlates with mammography findings. There are milk of calcium calcifications as seen mammographically. Color flow imaging demonstrates that there is no vascularity present. There is posterior enhancement. IMPRESSION: BENIGN There is no sonographic evidence of malignancy. No correlate to the resolved architectural distortion on mammogram. The cluster of oval cysts containing milk of calcium in the left breast is benign. Return to annual mammogram screening schedule is recommended. Findings and recommendations were conveyed to the patient at time of exam. This exam was interpreted at Station ID: [id number]. Electronically Signed By: Heidi canales/:06/12/2022 13:28:05 letter sent: Normal Exam Ultrasound BI-RADS: 2 Benign
== END ==
PROVIDERS: Family Provider Family Medicine; PCP Family Medicine; Referring Provider Family Medicine; Visit Provider Family Medicine
DX: R92.8 Other abnormal and inconclusive findings on diagnostic imaging of breast (principal); N60.02 Solitary cyst of left breast
CPT/HCPCS: 76642; 77065; G0279

== ENCOUNTER 2022-10-12 16:18 | Emergency (ER) | payer OTHER, MEDICARE, SELFPAY ==
[2022-10-12] VITALS (8 sets, daily range): BP systolic 133–152; BP diastolic 61–69; PULSE 58–71; RESP 15–24; TEMP 36.6; O2SAT 98–100; BMI 31.8
--- NOTE | 2022-10-12 16:48 | DI.RAD.S_ITS ---
PROCEDURE: XR CHEST 1V INDICATIONS: chest pain TECHNIQUE: One view of the chest was acquired. COMPARISON: [facility], CR, XR CHEST 1V, 11/25/2019, 10:50. FINDINGS: Surgical changes and devices: None. Lungs and pleura: Lungs are clear. No pleural effusions or pneumothorax. Mediastinum: Mediastinal contours appear normal. Heart size is normal. Bones and chest wall: No suspicious bony lesions. Overlying soft tissues appear unremarkable. IMPRESSION: No acute pulmonary process. Dictated by: Geri Mejía M.D. on 10/12/2022 at 17:03 Approved by: Geri Mejía M.D. on 10/12/2022 at 17:04
[2022-10-12 17:08] LABS: Add Manual Diff / Slide Review NO; Basophils Absolute Auto 100 /uL (0-100); Basophils Percent Auto 1.1 % (0-2); Eosinophils Absolute Auto 200 /uL (0-450); Eosinophils Percent Auto 2.3 % (2-4); Hematocrit 34.4 % (36-46); Hemoglobin 11.9 g/dL (12.0-16.0); Lymphocytes Absolute Auto 2600 /uL (1100-4500); Lymphocytes Percent Auto 37.8 % (25-40); Mean Corpuscular HGB Conc 34.7 % (30-36); Mean Corpuscular Hemoglobin 31.2 PG (26-34); Mean Corpuscular Volume 89.9 fL (80-100); Monocytes Absolute Auto 500 /uL (0-900); Monocytes Percent Auto 7.7 % (3-14); Neutrophils Absolute Auto 3600 /uL (1500-7000); Neutrophils Percent Auto 51.1 % (50-75); Platelet Count 237 X10^3/uL (150-400); Red Blood Cell Count 3.83 X10^6/uL (4.0-5.2)
--- NOTE | 2022-10-12 17:11 | ED_ITS ---
HPI - Chest Pain <Harris Nails PA-C - Last Filed: 10/12/22 19:18> General Chief Complaint: Chest Pain Stated Complaint: Sent by DR Mendez Time Seen by Provider: 10/12/22 17:08 Source: patient Mode of arrival: Ambulatory History of Present Illness HPI narrative: This is a 72-year-old female presenting to the emergency department complaining of sided chest and shoulder and left trapezius pain onset yesterday. She states that she worked out 2 days ago which included upper body exercise but was concerned about her heart and wanted to come in. She denies any pain radiating down the remainder arm, nausea, vomiting, diaphoresis, shortness of breath, or any other signs or symptoms. Patient does not have a cardiac history and states that she is been ?seen for this before ?but states that it was determined to be noncardiac in nature. Does not recall any acute injuries to the left chest. Pain is worse with movement. Related Data Previous Rx's Medication Instructions Recorded benzonatate 200 mg capsule 200 mg PO TID PRN cough #20 caps 12/06/21 acetaminophen 300 mg-codeine 30 12.5 ml PO TID PRN pain #500 mL 12/08/21 mg/12.5 mL (12.5 mL) oral solution amoxicillin 875 mg-potassium 1 tab PO BID #14 tabs 12/08/21 clavulanate 125 mg tablet prednisone 20 mg tablet 40 mg PO DAILY #10 tabs 12/13/21 indomethacin 25 mg capsule See Rx Instructions .Route 06/22/22 .COMPLEX #60 caps omeprazole 20 mg capsule,delayed See Rx Instructions .Route 10/04/22 release .COMPLEX #90 caps levothyroxine 112 mcg tablet See Rx Instructions .Route 10/12/22 .COMPLEX #60 tabs Allergies Allergy/AdvReac Type Severity Reaction Status Date / Time erythromycin base Allergy Unknown Verified 12/06/21 11:34 [ERYTHROMYCIN BASE] Review of Systems <Harris Nails PA-C - Last Filed: 10/12/22 19:18> Review of Systems Narrative: GENERAL: Denies chills, fatigue, malaise, fever, sweats. HEENT: Denies sinus pain, ear pain, sore throat, difficulty swallowing, dizziness. RESPIRATORY: Denies dyspnea, cough, wheezing, hemoptysis, sputum. CARDIOVASCULAR: Reports left-sided chest pain, denies palpitations, orthopnea, edema, GASTROINTESTINAL: Denies nausea, vomiting, abdominal pain, diarrhea, constipation, melena. : Denies dysuria, frequency, incontinence, hematuria, urinary retention. MUSCULOSKELETAL: denies weakness, joint pain, or bony pain SKIN: Denies rash, skin lesions, or other NEUROLOGIC: Denies weakness, headache, numbness, change in speech, confusion, seizures, incoordination. PSYCHIATRIC: No concerning psychosocial issues. 12 point review of systems is negative except for those stated above Patient History <Harris Nails PA-C - Last Filed: 10/12/22 19:18> Medical History (Updated 10/12/22 @ 19:18 by Harris Nails PA-C) Acute sinusitis Ankle pain Rondon's esophagus Chicken pox (~1953) Colon polyps (~1999) Diverticular disease (~1999) Fractures (~2007) GERD (gastroesophageal reflux disease) (~2010) Headache Hypothyroidism (acquired) Mumps Osteoarthritis of left knee (~1989) Skin cancer (~1972) Venous stasis dermatitis of left lower extremity Surgical History (Updated 01/05/21 @ 08:21 by Falguni Patel) Anesthesia History of bunionectomy (~1989) History of carpal tunnel release (~2012) History of knee surgery History of laminectomy (~1991) S/P foot surgery, left (~1951) Family History (Updated 01/05/21 @ 08:23 by Falguni Patel) Father Cancer Arthritis Mother Mental health problem Sister Arthritis Social History Smoking Status: Never smoker alcohol intake: current Smoking Status: Never smoker alcohol intake frequency: holidays/special occasions only Substance Use Type: does not use Exam <Harris Nails PA-C - Last Filed: 10/12/22 19:18> Narrative Exam Narrative: GENERAL: Well-developed patient, in mild distress. HEAD: Atraumatic. Normocephalic. EYES: Pupils equal round and reactive. Extraocular motions intact. No scleral icterus. No injection or drainage. ENT: Nose without bleeding, purulent drainage. Throat without erythema, tonsi llar hypertrophy or exudate. Airway patent. NECK: Trachea midline. Non tender CARDIOVASCULAR: Tenderness to palpation to the left chest wall as well as left trapezius, Regular rate and rhythm without murmurs, gallops, or rubs. RESPIRATORY: Clear to auscultation. Breath sounds equal bilaterally. No wheezes, rales, or rhonchi. GASTROINTESTINAL: Abdomen soft, non-tender, nondistended. EXTREMITIES: No edema or joint tenderness. BACK: Tenderness to palpation to the left trapezius NEURO: AOx3. SKIN: No rash or erythema of visible areas Initial Vital Signs Initial Vital Signs: Vital Signs Temperature 98 F 10/12/22 16:26 Pulse Rate 71 10/12/22 16:26 Respiratory Rate 17 10/12/22 16:26 Blood Pressure 152/69 H 10/12/22 16:26 Pulse Oximetry 98 10/12/22 16:26 Oxygen Delivery Method 10/12/22 16:26 <Kristin Goldstein DO - Last Filed: 10/12/22 22:25> Initial Vital Signs Initial Vital Signs: Vital Signs Temperature 98 F 10/12/22 16:26 Pulse Rate 71 10/12/22 16:26 Respiratory Rate 17 10/12/22 16:26 Blood Pressure 152/69 H 10/12/22 16:26 Pulse Oximetry 98 10/12/22 16:26 Oxygen Delivery Method 10/12/22 16:26 Course <Harris Nails PA-C - Last Filed: 10/12/22 19:18> Orders Ordered: ED Orders 10/12/22 16:33 EKG-12 Lead Routine EKG-12 Lead Stat 10/12/22 16:40 Complete Blood Count AUTO DIFF Stat Comprehensive Metabolic Panel Stat Lipase Stat Magnesium Stat Partial Thromboplastin Time Stat Prothrombin Time INR Stat Troponin & CK Cardiac Panel Stat 10/12/22 16:48 XR chest 1V Stat 10/12/22 17:35 COVID19 -Nasal RAPID/Pre-Proc Stat Discontinued Medications Aspirin (Aspirin 81 Mg Chew Tab) 324 mg PO NOW ONE Stop: 10/12/22 16:49 Last Admin: 10/12/22 17:34 Dose: 324 mg Documented By: BALDOMERO Vital Signs Vital signs: Vital Signs - 8 hr 10/12/22 16:26 10/12/22 16:45 10/12/22 16:46 Temperature 98 F Pulse Rate 71 68 65 Respiratory Rate 17 24 15 Blood Pressure 152/69 H Pulse Oximetry 98 98 98 Oxygen Delivery Method Room Air 10/12/22 16:46 10/12/22 17:00 10/12/22 17:00 Temperature Pulse Rate 63 Respiratory Rate 16 Blood Pressure 141/63 H 152/67 H Pulse Oximetry 98 Oxygen Delivery Method Room Air 10/12/22 17:30 10/12/22 17:30 10/12/22 18:00 Temperature Pulse Rate 61 Respiratory Rate 17 Blood Pressure 135/63 139/66 Pulse Oximetry 99 Oxygen Delivery Method 10/12/22 18:00 10/12/22 18:30 10/12/22 18:30 Temperature Pulse Rate 58 L 60 Respiratory Rate 21 16 Blood Pressure 133/61 Pulse Oximetry 98 100 Oxygen Delivery Method Room Air Room Air 10/12/22 19:00 10/12/22 19:00 Temperature Pulse Rate 60 Respiratory Rate 17 Blood Pressure 134/62 Pulse Oximetry 100 Oxygen Delivery Method Room Air <Kristin Goldstein, DO - Last Filed: 10/12/22 22:25> Orders Ordered: ED Orders 10/12/22 16:33 EKG-12 Lead Routine EKG-12 Lead Stat 10/12/22 16:40 Complete Blood Count AUTO DIFF Stat Comprehensive Metabolic Panel Stat Lipase Stat Magnesium Stat Partial Thromboplastin Time Stat Prothrombin Time INR Stat Troponin & CK Cardiac Panel Stat 10/12/22 16:48 XR chest 1V Stat 10/12/22 17:35 COVID19 -Nasal RAPID/Pre-Proc Stat Discontinued Medications Aspirin (Aspirin 81 Mg Chew Tab) 324 mg PO NOW ONE Stop: 10/12/22 16:49 Last Admin: 10/12/22 17:34 Dose: 324 mg Documented By: BALDOMERO Vital Signs Vital signs: Vital Signs - 8 hr 10/12/22 16:26 10/12/22 16:45 10/12/22 16:46 Temperature 98 F Pulse Rate 71 68 65 Respiratory Rate 17 24 15 Blood Pressure 152/69 H Pulse Oximetry 98 98 98 Oxygen Delivery Method Room Air 10/12/22 16:46 10/12/22 17:00 10/12/22 17:00 Temperature Pulse Rate 63 Respiratory Rate 16 Blood Pressure 141/63 H 152/67 H Pulse Oximetry 98 Oxygen Delivery Method Room Air 10/12/22 17:30 10/12/22 17:30 10/12/22 18:00 Temperature Pulse Rate 61 Respiratory Rate 17 Blood Pressure 135/63 139/66 Pulse Oximetry 99 Oxygen Delivery Method 10/12/22 18:00 10/12/22 18:30 10/12/22 18:30 Temperature Pulse Rate 58 L 60 Respiratory Rate 21 16 Blood Pressure 133/61 Pulse Oximetry 98 100 Oxygen Delivery Method Room Air Room Air 10/12/22 19:00 10/12/22 19:00 Temperature Pulse Rate 60 Respiratory Rate 17 Blood Pressure 134/62 Pulse Oximetry 100 Oxygen Delivery Method Room Air MDM - Chest Pain <Harris Nails PA-C - Last Filed: 10/12/22 19:18> Lab Data 10/12/22 16:40 10/12/22 16:40 Labs: Lab Results 10/12/22 10/12/22 10/12/22 Range/Units 16:40 16:40 16:40 WBC 7.0 (4.5-11.0) X10^3/uL RBC 3.83 L (4.0-5.2) X10^6/uL Hgb 11.9 L (12.0-16.0) g/dL Hct 34.4 L (36-46) % MCV 89.9 (80-100) fL MCH 31.2 (26-34) PG MCHC 34.7 (30-36) % RDW 14.0 (11.6-14.8) % Plt Count 237 (150-400) X10^3/uL Neut % (Auto) 51.1 (50-75) % Lymph % (Auto) 37.8 (25-40) % [place] % (Auto) 7.7 (3-14) % Eos % (Auto) 2.3 (2-4) % Baso % (Auto) 1.1 (0-2) % Neut # (Auto) 3600 (3557-8547) /uL Lymph # (Auto) 2600 (7396-4343) /uL [place] # (Auto) 500 (0-900) /uL Eos # (Auto) 200 (0-450) /uL Baso # (Auto) 100 (0-100) /uL PT 11.4 (10.1-12.7) SECONDS INR 1.0 (0.9-1.3) APTT 33 (26-36) SECONDS Sodium 138 (137-145) mmol/L Potassium 4.1 (3.4-5.1) mmol/L Chloride 105 (98-107) mmol/L Carbon Dioxide 24 (22-32) mmol/L BUN 26 H (7-17) mg/dL Creatinine 0.72 (0.52-1.04) mg/dL Estimated GFR > 60 (>60) mL/min BUN/Creatinine Ratio 36.1 H (6-22) Glucose 82 (80-110) mg/dL Calcium 9.2 (8.4-10.2) mg/dL Magnesium 2.1 (1.6-2.3) mg/dL Total Bilirubin 0.3 (0.2-1.3) mg/dL AST 27 (14-36) IU/L ALT 23 (<35) IU/L Alkaline Phosphatase 69 (38-126) U/L Total Creatine Kinase 151 H (30-135) U/L CK-MB (CK-2) 2.08 (<2.37) ng/mL CK-MB (CK-2) Rel Index 1.4 L (1.5-5.0) % Troponin I < 0.012 (0.01-0.034) ng/mL Total Protein 7.0 (6.3-8.2) g/dL Albumin 4.0 (3.5-5.0) g/dL Globulin 3.0 (1.7-4.1) g/dL Albumin/Globulin Ratio 1.3 (1.0-2.8) Lipase 76 (23-300) U/L SARS-CoV-2 (PCR) (Negative) 10/12/22 Range/Units 17:35 WBC (4.5-11.0) X10^3/uL RBC (4.0-5.2) X10^6/uL Hgb (12.0-16.0) g/dL Hct (36-46) % MCV (80-100) fL MCH (26-34) PG MCHC (30-36) % RDW (11.6-14.8) % Plt Count (150-400) X10^3/uL Neut % (Auto) (50-75) % Lymph % (Auto) (25-40) % [place] % (Auto) (3-14) % Eos % (Auto) (2-4) % Baso % (Auto) (0-2) % Neut # (Auto) (9000-0342) /uL Lymph # (Auto) (4442-0319) /uL [place] # (Auto) (0-900) /uL Eos # (Auto) (0-450) /uL Baso # (Auto) (0-100) /uL PT (10.1-12.7) SECONDS INR (0.9-1.3) APTT (26-36) SECONDS Sodium (137-145) mmol/L Potassium (3.4-5.1) mmol/L Chloride (98-107) mmol/L Carbon Dioxide (22-32) mmol/L BUN (7-17) mg/dL Creatinine (0.52-1.04) mg/dL Estimated GFR (>60) mL/min BUN/Creatinine Ratio (6-22) Glucose (80-110) mg/dL Calcium (8.4-10.2) mg/dL Magnesium (1.6-2.3) mg/dL Total Bilirubin (0.2-1.3) mg/dL AST (14-36) IU/L ALT (<35) IU/L Alkaline Phosphatase (38-126) U/L Total Creatine Kinase (30-135) U/L CK-MB (CK-2) (<2.37) ng/mL CK-MB (CK-2) Rel Index (1.5-5.0) % Troponin I (0.01-0.034) ng/mL Total Protein (6.3-8.2) g/dL Albumin (3.5-5.0) g/dL Globulin (1.7-4.1) g/dL Albumin/Globulin Ratio (1.0-2.8) Lipase (23-300) U/L SARS-CoV-2 (PCR) Negative (Negative) Imaging Data Chest x-ray: Radiologist's Impression: [address] [address] XRay Report Signed Patient: Tami Batista MR#: [id number] : 1950 Acct:[id number] Age/Sex: 72 / F Date of Service: 10/12/22 Loc: ED Accession Number: [id number] ?? Procedure: XR chest 1V Ordering Provider: Humphrey Costa MD PROCEDURE:? XR CHEST 1V ? INDICATIONS:? chest pain ? TECHNIQUE:? One view of the chest was acquired.? ? COMPARISON:? [facility], CR, XR CHEST 1V, 11/25/2019, 10:50. ? FINDINGS:? ? Surgical changes and devices:? None.? ? Lungs and pleura:? Lungs are clear.? No pleural effusions or pneumothorax.? ? Mediastinum:? Mediastinal contours appear normal.? Heart size is normal.? ? Bones and chest wall:? No suspicious bony lesions.? Overlying soft tissues appear unremarkable.? ? IMPRESSION:? No acute pulmonary process. ? ? Dictated by: Geri Mejía M.D. on 10/12/2022 at 17:03 ? ? Approved by: Geri Mejía M.D. on 10/12/2022 at 17:04 ? ECG Data Interpretation: 1633 EKG is normal sinus rhythm rate 67 and free of any signs of ischemia or ectopy. No ST segmental elevation or depression. No T wave inversions MDM Narrative Medical decision making narrative: MDM * differential diagnosis includes but not limited to STEMI, NSTEMI, stable angina, muscular strain, fracture * Prior records reviewed: Patient has not been here for similar symptoms in past. * My lab interpretation: Lab work unremarkable. Troponin within normal limits. * My imgaing interpretation: Chest x-ray showed no abnormality * Clinical Decision Rules/Scores evaluated: Heart score of 3 * Independent discussions with: None ED Course: This is a 72-year-old female presents to the emergency department due to left-sided chest pain onset yesterday. Suspect to be muscular in nature as patient states that she worked out 2 days ago which may cause some muscular discomfort. Pain is worse with movement and palpation as well. EKG troponin within normal limits. Low concern for ACS. All other lab work unremarkable as well. No shortness of breath and low concern for PE. Suspect muscular in nature recommended symptomatic management. Case was discussed with my attending physician, Dr. Goldstein. Shared Decision Making: Patient's plan was discussed to discharge she was comf ortable with this plan. Social Considerations: None Disposition: Discharged to home <Kristin Goldstein, DO - Last Filed: 10/12/22 22:25> Lab Data Labs: Lab Results 10/12/22 10/12/22 10/12/22 Range/Units 16:40 16:40 16:40 WBC 7.0 (4.5-11.0) X10^3/uL RBC 3.83 L (4.0-5.2) X10^6/uL Hgb 11.9 L (12.0-16.0) g/dL Hct 34.4 L (36-46) % MCV 89.9 (80-100) fL MCH 31.2 (26-34) PG MCHC 34.7 (30-36) % RDW 14.0 (11.6-14.8) % Plt Count 237 (150-400) X10^3/uL Neut % (Auto) 51.1 (50-75) % Lymph % (Auto) 37.8 (25-40) % [place] % (Auto) 7.7 (3-14) % Eos % (Auto) 2.3 (2-4) % Baso % (Auto) 1.1 (0-2) % Neut # (Auto) 3600 (8008-7470) /uL Lymph # (Auto) 2600 (5312-8228) /uL [place] # (Auto) 500 (0-900) /uL Eos # (Auto) 200 (0-450) /uL Baso # (Auto) 100 (0-100) /uL PT 11.4 (10.1-12.7) SECONDS INR 1.0 (0.9-1.3) APTT 33 (26-36) SECONDS Sodium 138 (137-145) mmol/L Potassium 4.1 (3.4-5.1) mmol/L Chloride 105 (98-107) mmol/L Carbon Dioxide 24 (22-32) mmol/L BUN 26 H (7-17) mg/dL Creatinine 0.72 (0.52-1.04) mg/dL Estimated GFR > 60 (>60) mL/min BUN/Creatinine Ratio 36.1 H (6-22) Glucose 82 (80-110) mg/dL Calcium 9.2 (8.4-10.2) mg/dL Magnesium 2.1 (1.6-2.3) mg/dL Total Bilirubin 0.3 (0.2-1.3) mg/dL AST 27 (14-36) IU/L ALT 23 (<35) IU/L Alkaline Phosphatase 69 (38-126) U/L Total Creatine Kinase 151 H (30-135) U/L CK-MB (CK-2) 2.08 (<2.37) ng/mL CK-MB (CK-2) Rel Index 1.4 L (1.5-5.0) % Troponin I < 0.012 (0.01-0.034) ng/mL Total Protein 7.0 (6.3-8.2) g/dL Albumin 4.0 (3.5-5.0) g/dL Globulin 3.0 (1.7-4.1) g/dL Albumin/Globulin Ratio 1.3 (1.0-2.8) Lipase 76 (23-300) U/L SARS-CoV-2 (PCR) (Negative) 10/12/22 Range/Units 17:35 WBC (4.5-11.0) X10^3/uL RBC (4.0-5.2) X10^6/uL Hgb (12.0-16.0) g/dL Hct (36-46) % MCV (80-100) fL MCH (26-34) PG MCHC (30-36) % RDW (11.6-14.8) % Plt Count (150-400) X10^3/uL Neut % (Auto) (50-75) % Lymph % (Auto) (25-40) % [place] % (Auto) (3-14) % Eos % (Auto) (2-4) % Baso % (Auto) (0-2) % Neut # (Auto) (0389-7217) /uL Lymph # (Auto) (1731-5656) /uL [place] # (Auto) (0-900) /uL Eos # (Auto) (0-450) /uL Baso # (Auto) (0-100) /uL PT (10.1-12.7) SECONDS INR (0.9-1.3) APTT (26-36) SECONDS Sodium (137-145) mmol/L Potassium (3.4-5.1) mmol/L Chloride (98-107) mmol/L Carbon Dioxide (22-32) mmol/L BUN (7-17) mg/dL Creatinine (0.52-1.04) mg/dL Estimated GFR (>60) mL/min BUN/Creatinine Ratio (6-22) Glucose (80-110) mg/dL Calcium (8.4-10.2) mg/dL Magnesium (1.6-2.3) mg/dL Total Bilirubin (0.2-1.3) mg/dL AST (14-36) IU/L ALT (<35) IU/L Alkaline Phosphatase (38-126) U/L Total Creatine Kinase (30-135) U/L CK-MB (CK-2) (<2.37) ng/mL CK-MB (CK-2) Rel Index (1.5-5.0) % Troponin I (0.01-0.034) ng/mL Total Protein (6.3-8.2) g/dL Albumin (3.5-5.0) g/dL Globulin (1.7-4.1) g/dL Albumin/Globulin Ratio (1.0-2.8) Lipase (23-300) U/L SARS-CoV-2 (PCR) Negative (Negative) ECG Data Interpretation: 1633 EKG is normal sinus rhythm rate 67 and free of any signs of ischemia or ectopy. No ST segmental elevation or depression. No T wave inversions [place]-normal sinus rhythm rate 67 MS interval 160 QRS [address] changes no T-wave inversions similar to previous EKG Discharge Plan Departure Patient Disposition: Home Clinical Impression: Chest pain, muscular Instructions: DI for Atypical Chest Pain Activity Restrictions/Additional Instructions: Thank you for coming to the [facility] Emergency Department today. As we discussed at this time I have low concern for any kind of heart attack or other cardiac issue. Your EKG and lab work that we use to test for heart attack was unremarkable. All your other lab work was unremarkable as well. I suspect his pain is muscular in nature due to working out 2 days ago as may cause some soreness in the area. Please take time to rest, stretch, and use ice and warm compresses to help with the pain. Please follow-up with the primary care provider as soon as possible for further evaluation and cardiac testing if he deems fit. I hope you feel better soon. Prescriptions: No Action benzonatate 200 mg capsule 200 mg PO TID PRN (Reason: cough) Qty: 20 0RF prednisone 20 mg tablet 40 mg PO DAILY Qty: 10 0RF indomethacin 25 mg capsule See Rx Instructions .ROUTE .COMPLEX Qty: 60 3RF Dose Instruction: TAKE ONE CAPSULE BY MOUTH THREE TIMES DAILY NEEDED FOR PAIN (SCALE SCORE 1-3) Rx Instructions: TAKE ONE CAPSULE BY MOUTH THREE TIMES DAILY NEEDED FOR PAIN (SCALE SCORE 1-3) omeprazole 20 mg capsule,delayed release(DR/EC) See Rx Instructions .ROUTE .COMPLEX Qty: 90 0RF Dose Instruction: TAKE ONE CAPSULE BY MOUTH ONE TIME DAILY Rx Instructions: TAKE ONE CAPSULE BY MOUTH ONE TIME DAILY levothyroxine 112 mcg tablet See Rx Instructions .ROUTE .COMPLEX Qty: 60 0RF Dose Instruction: TAKE 1 TABLET BY MOUTH EVERY DAY --NEEDS TO BE SEEN FOR ANNUAL LAB AND APPOINTMENT PRIOR TO REFILLS-- Rx Instructions: TAKE 1 TABLET BY MOUTH EVERY DAY --NEEDS TO BE SEEN FOR ANNUAL LAB AND APPOINTMENT PRIOR TO REFILLS-- acetaminophen-codeine 300 mg-30 mg /12.5 mL solution 12.5 ml PO TID PRN (Reason: pain) Qty: 500 0RF amoxicillin-pot clavulanate 875-125 mg tablet 1 tab PO BID Qty: 14 0RF Referrals: Tyrell Mendez MD [Primary Care Provider] - Stand Alone Forms: Patient Portal/API
[2022-10-12 17:17] LABS: Prothrombin Time 11.4 SECONDS (10.1-12.7)
[2022-10-12 17:19] LABS: PTT Partial Thromboplastin Tim 33 SECONDS (26-36)
[2022-10-12 17:34] LABS: Alanine Aminotransferase 23 IU/L (<35); Albumin Globulin Ratio 1.3 (1.0-2.8); Alkaline Phosphatase 69 U/L (38-126); Aspartate Aminotransferase 27 IU/L (14-36); BUN Creatinine Ratio 36.1 (6-22); Bilirubin Total 0.3 mg/dL (0.2-1.3); Blood Urea Nitrogen 26 mg/dL (7-17); Calcium 9.2 mg/dL (8.4-10.2); Carbon Dioxide 24 mmol/L (22-32); Chloride 105 mmol/L (98-107); Creatine Kinase 151 U/L (30-135); Estimated Glomerular Filt Rate > 60 mL/min (>60); Glucose 82 mg/dL (80-110); HEMOLYSIS < 15 (0-50); Magnesium 2.1 mg/dL (1.6-2.3); Potassium 4.1 mmol/L (3.4-5.1); Sodium 138 mmol/L (137-145)
[2022-10-12] MEDS: ASPIRIN 81 MG CHEW TAB 324 MG PO (17:34)
[2022-10-12 17:35] LABS: Lipase 76 U/L (23-300)
[2022-10-12 17:45] LABS: Troponin I < 0.012 ng/mL (0.01-0.034)
[2022-10-12 17:50] LABS: CKMB % Relative Index 1.4 % (1.5-5.0); Creatine Kinase MB 2.08 ng/mL (<2.37)
[2022-10-12 17:58] LABS: COVID19 -Nasal RAPID Negative (Negative)
== END 2022-10-12 19:30 | disposition home or self-care (01) ==
PROVIDERS: Emergency Medicine; Emergency Provider Physician Assistant Medical; Family Provider Family Medicine; PCP Family Medicine
DX: R07.89 Other chest pain (principal); Z20.822 Contact with and (suspected) exposure to COVID-19
CPT/HCPCS: 36415; 71045; 80053; 82550; 82553; 83690; 83735; 84484; 85025; 85610; 85730; 87635; 93005; 99284; C9803

== ENCOUNTER → 2022-10-23 07:52 | Outpatient (CLI) | payer OTHER, MEDICARE, SELFPAY ==
[2022-10-23 08:59] LABS: COVID-19 CEPHEID 4-PLEX PCR Negative (Negative); Influenza A - CEPHEID Flu A NEGATIVE (NEGATIVE); Influenza B - CEPHEID Flu B NEGATIVE (NEGATIVE); Respiratory Syncytial Virus Negative (Negative)
== END ==
PROVIDERS: Family Provider Family Medicine; PCP Family Medicine; Visit Provider Physician Assistant
DX: J06.9 Acute upper respiratory infection, unspecified (principal)
CPT/HCPCS: 0241U

== ENCOUNTER → 2022-11-10 08:00 | Outpatient (CLI) | payer OTHER, MEDICARE, SELFPAY ==
--- NOTE | 2022-11-10 08:03 | DI.ECHO.S_ITS ---
[place] [facility]---------+ [facility] +---------+ : : [address] : : : : [id number] : : : : Phone: [phone] Echocardiogram Report + + :Name: DG SR Study Date: 11/10/2022 Height: 63 in : :[facility] ReadingLocation: Weight: 183 lb : : Gender: Female BSA: 1.9 m2 : :: 1950 Age: 72 yrs BP: 134/79 mmHg: :Reason For Study: Chest Pain, mitral valve prolapse : :Ordering Physician: RADHA, : :MARCELLO Performed By: Anna Norton : :Referring: MARCELLO GARCIA : + + Interpretation Summary Normal sinus rhythm. Normal LV size, wall thickness, wall motion and LV systolic function. EF is 60-65%. Moderate LA enlargement; otherwise normal chamber sizes. Moderate mitral annular calcification. No evidence of mitral valve prolapse. No significant mitral regurgitation. Compared to prior study 02/03/2020 no significant changes have occurred. Procedure: A two-dimensional transthoracic echocardiogram with color flow and Doppler was performed. The study quality was technically adequate. The patient was in sinus bradycardia with heart rates between 55-63 bpm during the exam. Left Ventricle: The left ventricle is normal in size and wall thickness. The ejection fraction is estimated to be 60-65%. Diastolic parameters suggest probable normal left ventricular diastolic function and normal filling pressures. Right Ventricle: The right ventricle is normal in size and function. Atria: The left atrium is moderately dilated. The right atrium is mildly dilated. There is no Doppler evidence for an atrial septal defect. Mitral Valve: The mitral valve leaflets appear mildly thickened, but open well. There is moderate mitral annular calcification. There is no mitral valve stenosis. There is mild mitral regurgitation. Aortic Valve: The aortic valve is normal in structure and function. There is discrete nodular thickening of the non- coronary cusp. There is no aortic valve stenosis. No aortic regurgitation is present. Tricuspid Valve: The tricuspid valve is normal in structure and function. There is mild to moderate tricuspid regurgitation. The right ventricular systolic pressure is estimated to be at least 25.3 mmHg based on an estimated right atrial pressure of 3 mm Hg. Pulmonic Valve: The pulmonic valve leaflets are thin and pliable; valve motion is normal. There is a trace or physiologic amount of pulmonic regurgitation. Great Vessels: The aortic root is normal size. The ascending aorta is normal in size. The IVC is of normal diameter and collapses greater than 50% with a sniff. This suggests a low right atrial pressure of 3 mm Hg. Pericardium/ Pleura There is a trivial pericardial effusion noted. There is no pleural effusion. MMode/2D Measurements & Calculations LVIDd: 4.3 cm LVOT diam: 1.9 cm LVIDs: 2.7 cm Ao root diam: 2.9 cm FS: 37.2 % asc Aorta Diam: 3.3 cm EPSS: 0.40 cm IVSd: 0.90 cm LVPWd: 0.60 cm LV adhikari. diameter/BSA (cm/m^2): 2.3 LV sys. diameter/BSA (cm/m^2): 1.4 LA dimension: 3.9 cm RA long axis: 5.1 cm LA A2 area: 28.1 cm2 RA area: 18.5 cm2 LA A4 area: 25.6 cm2 RA vol: 56.7 ml LA length (vol): 6.3 cm RA : 30.5 ml/m2 LA vol: 97.2 ml IVC diam: 2.0 cm LA vol index: 52.2 ml/m2 RVD1 (basal): 3.7 cm LVLs ap4: 5.4 cm LVLd ap2: 6.8 cm TAPSE_phl: 2.9 cm LVLs ap2: 5.8 cm Doppler Measurements & Calculations Ao V2 max: 133.0 cm/sec LVOT Max Jim: 101.0 cm/sec Ao V2 mean: 94.9 cm/sec LV V1 max P.1 mmHg Ao max P.0 mmHg LV V1 VTI: 26.4 cm Ao mean P.0 mmHg TETE(I,D): 2.3 cm2 Ao V2 VTI: 32.9 cm TETE(V,D): 2.2 cm2 sev ratio: 0.80 TETE indexed to BSA (cm^2/m^2): 1.2 MV E max jim: 96.0 cm/sec TR max jim: 236.0 cm/sec MV A max jim: 73.3 cm/sec TR max P.3 mmHg MV E/A: 1.3 PA V2 max: 76.7 cm/sec Med Peak E' Jim: 7.1 cm/sec PA V2 mean: 56.2 cm/sec E/E' med: 13.6 PA mean P.0 mmHg Lat Peak E' Jim: 10.1 cm/sec E/E' lat: 9.5 E/e' average: 11.6 MV dec time: 0.15 sec MVA(VTI): 2.5 cm2 MV V2 mean: 56.9 cm/sec SV(LVOT): 74.9 ml MV mean P.0 mmHg MV V2 VTI: 30.3 cm AV VR_phl: 0.76 MV P1/2t-pr_phl: 43.0 msec TETE(VTI)/BSA_phl: 1.2 Electronically signed by: Virginia Geroges M.D. on Reading Physician:11/11/2022 01:06 AM
== END ==
PROVIDERS: Family Provider Family Medicine; PCP Family Medicine; Referring Provider Family Medicine; Visit Provider Family Medicine
DX: R07.89 Other chest pain (principal); I08.1 Rheumatic disorders of both mitral and tricuspid valves; E03.8 Other specified hypothyroidism; E78.2 Mixed hyperlipidemia
CPT/HCPCS: 93306

== ENCOUNTER → 2023-05-03 07:24 | Outpatient (CLI) | payer OTHER, MEDICARE, SELFPAY ==
[2023-05-03 08:29] LABS: Add Manual Diff / Slide Review NO; Basophils Absolute Auto 100 /uL (0-100); Basophils Percent Auto 1.4 % (0-2); Eosinophils Absolute Auto 200 /uL (0-450); Eosinophils Percent Auto 4.1 % (2-4); Hematocrit 37.8 % (36-46); Hemoglobin 12.5 g/dL (12.0-16.0); Lymphocytes Absolute Auto 1500 /uL (1100-4500); Lymphocytes Percent Auto 28.4 % (25-40); Mean Corpuscular HGB Conc 33.2 % (30-36); Mean Corpuscular Hemoglobin 29.8 PG (26-34); Mean Corpuscular Volume 89.5 fL (80-100); Monocytes Absolute Auto 500 /uL (0-900); Monocytes Percent Auto 8.8 % (3-14); Neutrophils Absolute Auto 3000 /uL (1500-7000); Neutrophils Percent Auto 57.3 % (50-75); Platelet Count 275 X10^3/uL (150-400); Red Blood Cell Count 4.22 X10^6/uL (4.0-5.2); Red Cell Distribution Width 14.3 % (11.6-14.8); White Blood Cell Count 5.2 X10^3/uL (4.5-11.0)
[2023-05-03 08:53] LABS: Alanine Aminotransferase 24 IU/L (<35); Albumin Globulin Ratio 1.6 (1.0-2.8); Alkaline Phosphatase 64 U/L (38-126); Aspartate Aminotransferase 26 IU/L (14-36); BUN Creatinine Ratio 30.6 (6-22); Bilirubin Total 0.4 mg/dL (0.2-1.3); Blood Urea Nitrogen 26 mg/dL (7-17); Calcium 9.4 mg/dL (8.4-10.2); Carbon Dioxide 27 mmol/L (22-32); Chloride 105 mmol/L (98-107); Estimated Glomerular Filt Rate > 60 mL/min (>60); Globulin 2.5 g/dL (1.7-4.1); Glucose 91 mg/dL (80-110); HEMOLYSIS < 15 (0-50); Potassium 4.5 mmol/L (3.4-5.1); Sodium 138 mmol/L (137-145); Total Protein 6.5 g/dL (6.3-8.2)
== END ==
PROVIDERS: Family Provider Family Medicine; PCP Family Medicine; Referring Provider Family Medicine; Visit Provider Family Medicine
DX: E03.9 Hypothyroidism, unspecified (principal); E03.8 Other specified hypothyroidism; E78.2 Mixed hyperlipidemia
CPT/HCPCS: 36415; 80053; 84443; 85025

== ENCOUNTER → 2023-06-22 10:45 | Outpatient (CLI) | payer MEDICARE, OTHER, SELFPAY | PROVIDERS: Family Provider Family Medicine; PCP Family Medicine; Visit Provider Physician Assistant | DX: R82.90 Unspecified abnormal findings in urine (principal) | CPT/HCPCS: 87086 ==

== ENCOUNTER → 2024-02-14 06:58 | Outpatient (CLI) | payer MEDICARE, OTHER, SELFPAY ==
[2024-02-14 08:17] LABS: Add Manual Diff / Slide Review NO; Basophils Absolute Auto 100 /uL (0-100); Basophils Percent Auto 1.3 % (0-2); Eosinophils Absolute Auto 300 /uL (0-450); Eosinophils Percent Auto 5.5 % (2-4); Hemoglobin 11.8 g/dL (12.0-16.0); Lymphocytes Absolute Auto 1700 /uL (1100-4500); Lymphocytes Percent Auto 34.3 % (25-40); Mean Corpuscular HGB Conc 33.7 % (30-36); Mean Corpuscular Hemoglobin 30.6 PG (26-34); Mean Corpuscular Volume 90.8 fL (80-100); Monocytes Absolute Auto 400 /uL (0-900); Monocytes Percent Auto 8.7 % (3-14); Neutrophils Absolute Auto 2500 /uL (1500-7000); Neutrophils Percent Auto 50.2 % (50-75); Platelet Count 254 X10^3/uL (150-400); Red Blood Cell Count 3.86 X10^6/uL (4.0-5.2); Red Cell Distribution Width 14.6 % (11.6-14.8); White Blood Cell Count 4.9 X10^3/uL (4.5-11.0)
[2024-02-14 08:45] LABS: Alanine Aminotransferase 18 IU/L (<35); Albumin 3.8 g/dL (3.5-5.0); Albumin Globulin Ratio 1.7 (1.0-2.8); Alkaline Phosphatase 65 U/L (38-126); Aspartate Aminotransferase 26 IU/L (14-36); BUN Creatinine Ratio 27.3 (6-22); Bilirubin Total 0.6 mg/dL (0.2-1.3); Blood Urea Nitrogen 21 mg/dL (7-17); Calcium 9.2 mg/dL (8.4-10.2); Carbon Dioxide 28 mmol/L (22-32); Chloride 108 mmol/L (98-107); Cholesterol 241 mg/dL (140-199); Estimated Glomerular Filt Rate > 60 mL/min (>60); Globulin 2.2 g/dL (1.7-4.1); Glucose 106 mg/dL (80-110); HDL Cholesterol 109 mg/dL (40-60); HEMOLYSIS < 15 (0-50); LDL Cholesterol Calculated 118 mg/dL (<100); Potassium 5.1 mmol/L (3.4-5.1); Sodium 138 mmol/L (137-145); Triglycerides 69 mg/dL (35-150)
[2024-02-14 09:11] LABS: TSH w/ Reflex to FT4 1.32 uIU/mL (0.47-4.68)
[2024-02-17 19:11] LABS: Lipoprotein (a) 170.6 nmol/L (<75.0)
== END ==
PROVIDERS: Family Provider Family Medicine; PCP Family Medicine; Referring Provider Family Medicine; Visit Provider Family Medicine
DX: E78.2 Mixed hyperlipidemia (principal); E03.8 Other specified hypothyroidism; R07.9 Chest pain, unspecified; R12 Heartburn; I34.81 Nonrheumatic mitral (valve) annulus calcification
CPT/HCPCS: 36415; 80053; 80061; 83695; 84443; 85025

== ENCOUNTER → 2024-03-27 08:47 | Outpatient (CLI) | payer MEDICARE, OTHER, SELFPAY ==
[2024-03-27 10:22] LABS: Appearance Urine UA CLEAR; Bilirubin Urine UA NEGATIVE (NEGATIVE); Color Urine UA YELLOW; Glucose Urine UA NEGATIVE (Negative); Ketones Urine UA NEGATIVE (NEGATIVE); Leukocyte Esterase Urine UA TRACE (NEGATIVE); Nitrite Urine UA NEGATIVE (Negative); Occult Blood Urine UA NEGATIVE (Negative); Protein Urine UA NEGATIVE (Negative); Urobilinogen Urine UA 0.2 E.U./dL (0.2)
[2024-03-27 10:24] LABS: pH Urine UA 5.5 (4.5-8.0)
[2024-03-27 10:33] LABS: RBC Urine None Seen (0-5/HPF); Urine Volume 10mL (spun)
[2024-03-27 10:34] LABS: Bacteria Urine Moderate (10-30); Culture Indicated Urine Cult Not Indicated; Squamous Epithelial Cell Urine 10-30 /HPF (0-5/HPF); WBC Urine 1-5/HPF (0-5/HPF)
[2024-03-31 11:36] LABS: Fecal Immunochemical Test Negative (Negative)
== END ==
PROVIDERS: Family Provider Family Medicine; PCP Family Medicine; Referring Provider Family Medicine; Visit Provider Family Medicine
DX: D36.9 Benign neoplasm, unspecified site (principal); Z12.11 Encounter for screening for malignant neoplasm of colon; R32 Unspecified urinary incontinence
CPT/HCPCS: 81001; 82274

== ENCOUNTER → 2024-04-29 11:54 | Outpatient (CLI) | payer MEDICARE, OTHER, SELFPAY ==
--- NOTE | 2024-04-29 11:55 | DI.RAD.S_ITS ---
PROCEDURE: XR DEXA AXIAL SKELETON INDICATIONS: screening mammogram COMPARISON: None. FINDINGS: Lumbar Spine: Bone mineral density 1.123 g/cm2, T score 1.0. Left Hip: Bone mineral density 0.920 g/cm2, T score -0.2. Left Femoral Neck: Bone mineral density is 0.733 g/cm2, T score -1.0. Right Hip: Bone mineral density 0.904 g/cm2, T score -0.3. Right Femoral Neck: Bone mineral density is 0.769 g/cm2, T score -0.7. Fracture Risk Calculation (when applicable): FRAX score not reported due to T-scores greater than -1.0. (T score greater or equal to -1.0 to: NORMAL) (T score from -1.1 to -2.4: OSTEOPENIA) (T score less than or equal to -2.5: OSTEOPOROSIS) IMPRESSION: By WHO criteria, patient has normal bone mineral density. Follow-up guidelines as follows: Osteoporosis: Consider a repeat DEXA and Vertebral Fracture Assessment (VFA) exam in 2 years or sooner if medically necessary, to reassess this patient's status. Osteopenia: Consider a repeat DEXA in 2-3 years to reassess this patient's status, or if there is a new clinical indication. Normal: Consider a repeat DEXA in 5 years or sooner, or if there is a new clinical indication. All treatment decisions require clinical judgment and consideration of individual patient factors, including patient preferences, comorbidities, previous drug use, risk factors not captured in the FRAX model (e.g., frailty, falls, vitamin D deficiency, increased bone turnover, interval significant decline in bone density ) and possible under- or over-estimation of fracture risk by FRAX. In addition, the NOF Guide recommends that FDA-approved medical therapies be considered in postmenopausal women and men age >= 50 years with a: * Hip or vertebral (clinical or morphometric) fracture * T-score of <=-2.5 at the spine or hip * Ten-year fracture probability by FRAX of >= 3% for hip fracture or >=20% for major osteoporotic fracture. People with diagnosed cases of osteoporosis or at high risk for fracture should have regular bone mineral density tests. For patients eligible for Medicare, routine testing is allowed once every 2 years. The testing frequency can be increased to one year for patients who have rapidly progressing disease, those who are receiving or discontinuing medical therapy to restore bone mass, or have additional risk factors. Dictated by: Shane Atkins M.D. on 04/29/2024 at 22:06 Approved by: Shane Atkins M.D. on 04/29/2024 at 22:10
--- NOTE | 2024-04-29 11:56 | DI.MRI.S_ITS ---
PROCEDURE: MR KNEE LT WO CON COMPARISON: [facility], MR, MR KNEE LT WO CON, 05/15/2020, 7:59. INDICATIONS: LEFT KNEE PAIN FINDINGS: MRI of the left knee shows patient is status post left total knee replacement. Ferromagnetic magnetic artifact from surgical hardware does somewhat limit the evaluation. There is a moderate to marked tendinopathy and thickening involving the patellar tendon. There is a small to moderate-sized knee joint effusion present. Visualized surgical hardware appears within normal limits. Collateral ligaments appear within normal limits. There is moderate edematous change within the subcutaneous tissues surrounding the patellar tendon consistent with some acute inflammation. IMPRESSION: 1. Moderate to marked tendinopathy and thickening with increased intrasubstance signal involving the patellar tendon. 2. Moderate edematous changes subcutaneous tissues surrounding the patellar tendon consistent with acute inflammation. 3. Small to moderate-sized knee joint effusion. 4. Status post left total knee prosthesis. Dictated by: Gaston Menendez M.D. on 04/29/2024 at 14:33 Approved by: Gaston Menendez M.D. on 04/29/2024 at 14:38
== END ==
LOC: RAD 11:55
PROVIDERS: Family Provider Family Medicine; PCP Family Medicine; Referring Provider Family Medicine; Visit Provider Family Medicine
DX: M85.89 Other specified disorders of bone density and structure, multiple sites (principal); M25.562 Pain in left knee; M25.462 Effusion, left knee; Z96.652 Presence of left artificial knee joint
CPT/HCPCS: 73721; 77080

== ENCOUNTER 2024-07-10 08:15 | Outpatient (RCR) | payer MEDICARE, OTHER, SELFPAY ==
--- NOTE | 2024-05-12 15:21 | PT.OIE ---
Current Diagnoses Pain in left knee (05/12/24) Soft tissue disorder, unspecified (05/12/24) Difficulty in walking, not elsewhere classified (05/12/24) Weakness (05/12/24) Edema, unspecified (05/12/24) Presence of left artificial knee joint (05/12/24) Past Medical History (Last Reviewed 06/22/23 @ 10:49 by Meghana Crump PA-C) Acute sinusitis Ankle pain Rondon's esophagus Chicken pox (~1953) Colon polyps (~1999) Diverticular disease (~1999) Fractures (~2007) GERD (gastroesophageal reflux disease) (~2010) Headache Hypothyroidism (acquired) Mitral valve annular calcification Mumps Osteoarthritis of left knee (~1989) Skin cancer (~1972) Venous stasis dermatitis of left lower extremity Past Surgical History (Last Reviewed 06/22/23 @ 10:49 by Meghana Crump PA-C) Anesthesia History of bunionectomy (~1989) History of carpal tunnel release (~2012) History of knee surgery History of laminectomy (~1991) S/P foot surgery, left (~1951) Visit Care Team Role Provider Type Tyrell Mendez MD Family Provider Physician Primary Care Provider Specialty: Family Practice Address: [address] [place] [address], [id number] Email: [email or web address] Dillan Munoz MD Attending Provider Non-Staff Referring Provider Specialty: Orthopedic Surgery Address: [address] [place] [address], [id number] Email: Physical Therapy Initial Evaluation PT-OP-A Visit Information Start: 05/12/24 08:12 Freq: Status: Active Protocol: Document 05/12/24 09:44 SAK (Rec: 05/12/24 10:33 SAK [id number]) Out-Patient Physical Therapy Visit Information Visit Information Visit Type Initial Evaluation Visit Start Time 09:44 Visit Stop Time 10:33 Visit Number 1 PT-OP-B Current Condition Start: 05/12/24 08:12 Freq: Status: Active Protocol: Document 05/12/24 09:44 SAK (Rec: 05/12/24 10:33 SAK [id number]) Current Condition History of Current Condition Onset Date 09/05/23 Current Complaints left knee pain History of Current Condition left TKA by Dr. Munoz, had PT for 3 months. Walked with a walker for a week or two, no longer using a device. Pain is constant, including with sleeping, getting in and out of cars. No N/T or giving way. Has some popping. States she feels like her kneecap is the worst part. Has tried wearing a brace with struts on the side, has tried several. Wears compression stockings due to old ankle injury. States PT after surgery tried KT tape 1x, otherwise. Pain is really bad if tries to do bicyce, and lifting leg while laying on her side. Does stretching of hamstrings and calves, not quads. First step in playing pickle ball feels challenging. At night pain is constant and dull, getting up from set sharp pain in back of knee. Can't do hamstring curl at gym due to pain. Wore thigh high compression stockings right after surgery. Future Testing and Treatments Planned Sees Dr. Munoz on anticipated right TKA; had it scheduled for April but cancelled due to left knee issues. Treatment Goals Patient/Caregiver Goals Be able to move from sit to stand, play pickleball, and sleep without pain. Prior Functional Status Baseline Function- ADL's Independent Baseline Function- Mobility Independent Baseline Function- Gait indep without pain Current Functional Impairments (Reported) Functional Limitations- ADL's painful Functional Limitations- Mobility/Gait painful Functional Limitations- Recreation/ painful, unable Hobbies Functional Limitations- Other painful sleeping pain sit to stand PT-OP-C Subjective Start: 05/12/24 08:12 Freq: Status: Active Protocol: Document 05/12/24 09:44 [facility] (Rec: 05/12/24 15:19 [facility] [id number]) Patient Questionnaires Lower Extremity Functional Scale LEFS Score 37 OP-PT Pain Assessment Pain Assessment Grid Paper Pain Assessment Grid Completed Yes Location left knee Pain Location Details see pain chart Intensity 7 Scale Used Numeric (0 - 10) Description Aching,Sharp,Tender,Tightness Frequency Constant Pain Aggravating Factors Position,Changing Position,ADL 's,Activity,Exercise,Standing, Walking,Bending Pain Alleviating Factors None PT-OP-G Mobility & Gait Start: 05/12/24 08:12 Freq: Status: Active Protocol: Document 05/12/24 09:44 SAK (Rec: 05/12/24 15:19 [facility] [id number]) OP Mobility Evaluation Transfers Sit to Stand indep but with dec weightbearing left LE Car Transfers painful Floor Transfers painful OP Gait Assessment Gait Gait Assistance Required: Independent Assistive Devices Assistive Device None Gait Deviations General Gait Pattern Antalgic Factors Limiting Gait Function Factors Limiting Gait Function Decreased Strength,Pain Stair Climbing Evaluation Evaluation Level of Assist On Stairs Independent Technique/Endurance Stair Climbing Technique Step to Step Stair Climbing Set # Repetitions (reps) 4 PT-OP-H Neuro Start: 05/12/24 08:12 Freq: Status: Active Protocol: Document 05/12/24 09:44 SAK (Rec: 05/12/24 15:19 [facility] [id number]) Sensation Evaluation Gross Sensation Gross Sensation WNL PT-OP-J Posture/Palpation/Skin Start: 05/12/24 08:12 Freq: Status: Active Protocol: Document 05/12/24 09:44 [facility] (Rec: 05/12/24 10:33 [facility] [id number]) Posture Evaluation Position Standing Pelvis Posture Anteriorly Tilted Weight Distribution Weight Shifted Right Hip Posture (L) Internally Rotated,(R) Internally Rotated Knee Posture (R) Neutral,(L) Genu Valgus Patellar Posture (L) Laterally Tilted Ankle/Foot Posture (L) Pronated,(L) Forefoot Eversion Foot Arch (L) Medium Arch,(R) Medium Arch Palpation Assessment Location posterior knee Palpation Findings Edema,Tenderness knee joint line left Palpation Findings Edema,Tenderness Skin Assessment Edema Assessment left knee Edema Type Non-Pitting Edema Degree 2+ Edema Appearance Puffy Subjective Edema Description Tightness PT-OP-K Range of Motion Start: 05/12/24 08:12 Freq: Status: Active Protocol: Document 05/12/24 09:44 SAK (Rec: 05/12/24 15:19 [facility] [id number]) Hip Goniometric Range of Motion Hip ev Hip ROM WFL Yes Comments except left hip ER 50, IR 5 Knee Goniometric Range of Motion Knee Left Flexion Active (degrees) 124 Extension Active (degrees) 5 Right Knee ROM WFL Yes Ankle and Foot Goniometric Range of Motion Ankle and Foot ev Ankle/Foot ROM WFL Yes PT-OP-M Strength Start: 05/12/24 08:12 Freq: Status: Active Protocol: Document 05/12/24 09:44 [facility] (Rec: 05/12/24 15:19 [facility] [id number]) Hip Strength Hip Manual Muscle Testing Left Flexion (L2) 4- Good- Extension (S1) 4- Good- Abduction 4- Good- Adduction 4- Good- External Rotation 4- Good- Internal Rotation 4 Good Right Flexion (L2) 4- Good- Extension (S1) 4- Good- Abduction 4- Good- Adduction 4 Good External Rotation 4- Good- Internal Rotation 4 Good Knee Strength Knee Manual Muscle Testing Left Flexion (S2) 4- Good- Extension (L3) 4 Good Right Flexion (S2) 4+ Good+ Extension (L3) 4+ Good+ Ankle/Foot Strength Ankle and Foot Manual Muscle Testing ev Dorsiflexion (L4) 5 Normal Plantarflexion (S1) 5 Normal PT-OP-Q Treatments Start: 05/12/24 08:12 Freq: Status: Active Protocol: Document 05/12/24 09:44 [facility] (Rec: 05/12/24 15:19 [facility] [id number]) Manual Therapy Treatment Taping left knee Treatment Focus edema and pain reduction Type of Tape Kinesio Tape Skin Inspection intact Comments skin cleaned with rubbing alcohol, Biofreeze applied. 2 fan strips posterior left knee paper off tension, Y strip for patellar tracking ( base medial) 75% tension , 2 Y strips anterior knee one starting sup to patella and tails along med and lat patella, one staring patellar tuberosity and tails along med and lat patella into distal thigh both at 50% tension Self-Care/Home Management Treatment Education Patient Education Home Exercise Program Other Education issued written HEP PT-OP-T Assessment and Plan Start: 05/12/24 08:12 Freq: Status: Active Protocol: Document 05/12/24 09:44 [facility] (Rec: 05/12/24 10:33 [facility] [id number]) Physical Therapy Assessment Rehab Potential Rehabilitation Potential Good Evaluation Complexity Number of Personal Factors/Comorbidities 1-2 Number of Body Systems Impaired 3 Clinical Presentation at Evaluation Evolving Impairments Impairments Activity Tolerance,Edema,Pain, ROM,Strength Goals One Impairment left knee pain as high as 7/10 limiting activities Short Term Goal (STG) Patient will be able to move sit to stand and sleep with minimal to no left knee pain STG Duration 06/17/24 Nursing Home Goal (LTG) Patient will be able to resume taking walks and playing pickleball with minimal to no pain LTG Duration 08/11/24 Three Impairment LEFS(lower extremity functional scale) 38% Short Term Goal (STG) Improve LEFS score to at least 55% as measure of improved activity tolerance and left knee function STG Duration 06/17/24 [employer] Consultant Goal (LTG) Improve LEFS score to at least 75% as measure of improved activity tolerance and left knee function. Two Impairment weakness left knee and hip, dec quad flexibility left Short Term Goal (STG) Patient will be instructed in individualized, progressive HEP for the purposes of strengthening and flexibility. STG Duration 06/17/24 [employer] Consultant Goal (LTG) Patient will be independent and compliant with HEP and test 5/5 muscle strength left knee and hip and flexibility left quadriceps WNL. LTG Duration 08/11/24 Assessment Summary Assessment Patient presents to PT with function-limiting pain left knee approximately 8 months s/ p TKA. She had right TKA scheduled for April of this year but cancelled it due to persistent pain and dysfunction left knee following surgery. She is tender to palpation along joint lines laterally and posteriorly, has limited left patellar movement and laterally tilted patella, moderate left knee swelling, and strength and flexibility impairments left knee and hip. Feel she will benefit from PT to address the above impairments and help her return to her previously very active lifestyle. After evaluation KT tape applied for edema post knee and for support and patellar tracking anterior knee. Instructed patient to try wearing thigh high compression stockings, consider knee brace (has previously tried knee brace but reports she hasn't found the one). POC was discussed and patient was in agreement. Physical Therapy Plan Frequency and Duration Frequency of Treatment 2x/Week Duration of treatment (weeks) 12 Plan of Care Start Date 05/12/24 Plan of Care End Date 08/11/24 Therapeutic Interventions Therapeutic Interventions Home Exercise Program,Manual Therapy,Patient/Caregiver Education,Self-Care/Home Management,Soft Tissue Mobilization,Taping, Therapeutic Activities, Therapeutic Exercises Modalities Cold Pack/Ice Massage,Electric Stimulation,Hot Packs
--- NOTE | 2024-05-12 15:21 | PT.OPPOC ---
Physical, Occupational & Speech Therapy At [facility] Current Diagnoses Pain in left knee (05/12/24) Soft tissue disorder, unspecified (05/12/24) Difficulty in walking, not elsewhere classified (05/12/24) Weakness (05/12/24) Edema, unspecified (05/12/24) Presence of left artificial knee joint (05/12/24) Visit Care Team Role Provider Type Tyrell Mendez MD Family Provider Physician Primary Care Provider Specialty: Family Practice Address: [address] [place] [address], [id number] Email: [email or web address] Dillan Munoz MD Attending Provider Non-Staff Referring Provider Specialty: Orthopedic Surgery Address: [address] [place] [address], [place], [address] Email: Plan Of Care PT-OP-B Current Condition Start: 05/12/24 08:12 Freq: Status: Active Protocol: Document 05/12/24 09:44 SAK (Rec: 05/12/24 10:33 SAK [id number]) Current Condition History of Current Condition Onset Date 09/05/23 Current Complaints left knee pain History of Current Condition left TKA by Dr. Munoz, had PT for 3 months. Walked with a walker for a week or two, no longer using a device. Pain is constant, including with sleeping, getting in and out of cars. No N/T or giving way. Has some popping. States she feels like her kneecap is the worst part. Has tried wearing a brace with struts on the side, has tried several. Wears compression stockings due to old ankle injury. States PT after surgery tried KT tape 1x, otherwise. Pain is really bad if tries to do bicyce, and lifting leg while laying on her side. Does stretching of hamstrings and calves, not quads. First step in playing pickle ball feels challenging. At night pain is constant and dull, getting up from set sharp pain in back of knee. Can't do hamstring curl at gym due to pain. Wore thigh high compression stockings right after surgery. Future Testing and Treatments Planned Sees Dr. Munoz on anticipated right TKA; had it scheduled for April but cancelled due to left knee issues. Treatment Goals Patient/Caregiver Goals Be able to move from sit to stand, play pickleball, and sleep without pain. Prior Functional Status Baseline Function- ADL's Independent Baseline Function- Mobility Independent Baseline Function- Gait indep without pain Current Functional Impairments (Reported) Functional Limitations- ADL's painful Functional Limitations- Mobility/Gait painful Functional Limitations- Recreation/ painful, unable Hobbies Functional Limitations- Other painful sleeping pain sit to stand PT-OP-T Assessment and Plan Start: 05/12/24 08:12 Freq: Status: Active Protocol: Document 05/12/24 09:44 SAK (Rec: 05/12/24 10:33 SAK [id number]) Physical Therapy Assessment Rehab Potential Rehabilitation Potential Good Evaluation Complexity Number of Personal Factors/Comorbidities 1-2 Number of Body Systems Impaired 3 Clinical Presentation at Evaluation Evolving Impairments Impairments Activity Tolerance,Edema,Pain, ROM,Strength Goals One Impairment left knee pain as high as 7/10 limiting activities Short Term Goal (STG) Patient will be able to move sit to stand and sleep with minimal to no left knee pain STG Duration 06/17/24 Finance Assistant Goal (LTG) Patient will be able to resume taking walks and playing pickleball with minimal to no pain LTG Duration 08/11/24 Three Impairment LEFS(lower extremity functional scale) 38% Short Term Goal (STG) Improve LEFS score to at least 55% as measure of improved activity tolerance and left knee function STG Duration 06/17/24 Finance Assistant Goal (LTG) Improve LEFS score to at least 75% as measure of improved activity tolerance and left knee function. Two Impairment weakness left knee and hip, dec quad flexibility left Short Term Goal (STG) Patient will be instructed in individualized, progressive HEP for the purposes of strengthening and flexibility. STG Duration 06/17/24 Finance Assistant Goal (LTG) Patient will be independent and compliant with HEP and test 5/5 muscle strength left knee and hip and flexibility left quadriceps WNL. LTG Duration 08/11/24 Assessment Summary Assessment Patient presents to PT with function-limiting pain left knee approximately 8 months s/ p TKA. She had right TKA scheduled for April of this year but cancelled it due to persistent pain and dysfunction left knee following surgery. She is tender to palpation along joint lines laterally and posteriorly, has limited left patellar movement and laterally tilted patella, moderate left knee swelling, and strength and flexibility impairments left knee and hip. Feel she will benefit from PT to address the above impairments and help her return to her previously very active lifestyle. After evaluation KT tape applied for edema post knee and for support and patellar tracking anterior knee. Instructed patient to try wearing thigh high compression stockings, consider knee brace (has previously tried knee brace but reports she hasn't found the one). POC was discussed and patient was in agreement. Physical Therapy Plan Frequency and Duration Frequency of Treatment 2x/Week Duration of treatment (weeks) 12 Plan of Care Start Date 05/12/24 Plan of Care End Date 08/11/24 Therapeutic Interventions Therapeutic Interventions Home Exercise Program,Manual Therapy,Patient/Caregiver Education,Self-Care/Home Management,Soft Tissue Mobilization,Taping, Therapeutic Activities, Therapeutic Exercises Modalities Cold Pack/Ice Massage,Electric Stimulation,Hot Packs Plan of Care Dates Plan of Care Start Date 05/12/24 Plan of Care End Date 08/11/24 Electronically Signed by: Anne Yañez, PT 05/12/24 [id number] If you are in agreement with this Plan of Care, please return a signed and dated copy. I have reviewed this Plan of Care and certify that the skilled therapy services above are required to meet the patient?s needs. Physician Signature Date Printed Name and Credentials Clinical Instructor Signature Printed Name and Credentials
--- NOTE | 2024-05-14 16:09 | PT.OTN ---
Current Diagnoses Pain in left knee (05/14/24) Soft tissue disorder, unspecified (05/14/24) Difficulty in walking, not elsewhere classified (05/14/24) Weakness (05/14/24) Edema, unspecified (05/14/24) Presence of left artificial knee joint (05/14/24) Physical Therapy Treatment Note PT-OP-A Visit Information Start: 05/12/24 08:12 Freq: Status: Active Protocol: Document 05/14/24 08:06 [facility] (Rec: 05/14/24 09:05 [facility] [id number]) Out-Patient Physical Therapy Visit Information Visit Information Visit Type Treatment Note Visit Start Time 08:15 Visit Stop Time 09:10 Visit Number 2 PT-OP-B Current Condition Start: 05/12/24 08:12 Freq: Status: Active Protocol: Document 05/14/24 08:06 [facility] (Rec: 05/14/24 09:05 [facility] [id number]) Current Condition History of Current Condition Onset Date 09/05/23 Current Complaints left knee pain History of Current Condition left TKA by Dr. Munoz, had PT for 3 months. Walked with a walker for a week or two, no longer using a device. Pain is constant, including with sleeping, getting in and out of cars. No N/T or giving way. Has some popping. States she feels like her kneecap is the worst part. Has tried wearing a brace with struts on the side, has tried several. Wears compression stockings due to old ankle injury. States PT after surgery tried KT tape 1x, otherwise. Pain is really bad if tries to do bicyce, and lifting leg while laying on her side. Does stretching of hamstrings and calves, not quads. First step in playing pickle ball feels challenging. At night pain is constant and dull, getting up from set sharp pain in back of knee. Can't do hamstring curl at gym due to pain. Wore thigh high compression stockings right after surgery. Future Testing and Treatments Planned Sees Dr. Munoz on anticipated right TKA; had it scheduled for April but cancelled due to left knee issues. Treatment Goals Patient/Caregiver Goals Be able to move from sit to stand, play pickleball, and sleep without pain. PT-OP-C Subjective Start: 05/12/24 08:12 Freq: Status: Active Protocol: Document 05/14/24 08:06 [facility] (Rec: 05/14/24 09:05 [facility] [id number]) OP-PT Subjective Patient Comments Patient Comments States able to do HEP, standing quad stretch was painful but states thinks chair too high. Not sure about heel dig exercise. Liked KT tape PT-OP-G Mobility & Gait Start: 05/12/24 08:12 Freq: Status: Active Protocol: Document 05/12/24 09:44 [facility] (Rec: 05/12/24 15:19 [facility] [id number]) OP Mobility Evaluation Transfers Sit to Stand indep but with dec weightbearing left LE Car Transfers painful Floor Transfers painful OP Gait Assessment Gait Gait Assistance Required: Independent Assistive Devices Assistive Device None Gait Deviations General Gait Pattern Antalgic Factors Limiting Gait Function Factors Limiting Gait Function Decreased Strength,Pain Stair Climbing Evaluation Evaluation Level of Assist On Stairs Independent Technique/Endurance Stair Climbing Technique Step to Step Stair Climbing Set # Repetitions (reps) 4 PT-OP-H Neuro Start: 05/12/24 08:12 Freq: Status: Active Protocol: Document 05/12/24 09:44 [facility] (Rec: 05/12/24 15:19 [facility] [id number]) Sensation Evaluation Gross Sensation Gross Sensation WNL PT-OP-J Posture/Palpation/Skin Start: 05/12/24 08:12 Freq: Status: Active Protocol: Document 05/12/24 09:44 [facility] (Rec: 05/12/24 10:33 [facility] [id number]) Posture Evaluation Position Standing Pelvis Posture Anteriorly Tilted Weight Distribution Weight Shifted Right Hip Posture (L) Internally Rotated,(R) Internally Rotated Knee Posture (R) Neutral,(L) Genu Valgus Patellar Posture (L) Laterally Tilted Ankle/Foot Posture (L) Pronated,(L) Forefoot Eversion Foot Arch (L) Medium Arch,(R) Medium Arch Palpation Assessment Location posterior knee Palpation Findings Edema,Tenderness knee joint line left Palpation Findings Edema,Tenderness Skin Assessment Edema Assessment left knee Edema Type Non-Pitting Edema Degree 2+ Edema Appearance Puffy Subjective Edema Description Tightness PT-OP-K Range of Motion Start: 05/12/24 08:12 Freq: Status: Active Protocol: Document 05/12/24 09:44 [facility] (Rec: 05/12/24 15:19 [facility] [id number]) Hip Goniometric Range of Motion Hip ev Hip ROM WFL Yes Comments except left hip ER 50, IR 5 Knee Goniometric Range of Motion Knee Left Flexion Active (degrees) 124 Extension Active (degrees) 5 Right Knee ROM WFL Yes Ankle and Foot Goniometric Range of Motion Ankle and Foot ev Ankle/Foot ROM WFL Yes PT-OP-M Strength Start: 05/12/24 08:12 Freq: Status: Active Protocol: Document 05/12/24 09:44 [facility] (Rec: 05/12/24 15:19 [facility] [id number]) Hip Strength Hip Manual Muscle Testing Left Flexion (L2) 4- Good- Extension (S1) 4- Good- Abduction 4- Good- Adduction 4- Good- External Rotation 4- Good- Internal Rotation 4 Good Right Flexion (L2) 4- Good- Extension (S1) 4- Good- Abduction 4- Good- Adduction 4 Good External Rotation 4- Good- Internal Rotation 4 Good Knee Strength Knee Manual Muscle Testing Left Flexion (S2) 4- Good- Extension (L3) 4 Good Right Flexion (S2) 4+ Good+ Extension (L3) 4+ Good+ Ankle/Foot Strength Ankle and Foot Manual Muscle Testing ev Dorsiflexion (L4) 5 Normal Plantarflexion (S1) 5 Normal PT-OP-Q Treatments Start: 05/12/24 08:12 Freq: Status: Active Protocol: Document 05/14/24 08:06 [facility] (Rec: 05/14/24 09:05 [facility] [id number]) Cardio Equipment Recumbent Elliptical (Biodex) Duration (Minutes) 6 Resistance 2 Seat Position 8 Other cues for neutral LE alignment Recumbent Bicycle Duration (Minutes) 4 Resistance 3 Seat Position 7 Other After Biodex as pt looking for machine to use at home. Gym Equipment Shuttle Recovery Unilateral Squats Resistance 37R, 25L Reps/Time 10x Bilateral Squats Resistance 50 Reps/Time 10x Therapeutic Exercises Supine Exercises heel dig Comments feet over end of table work better bridge Supine Exercise Name ev, unil Reps/Minutes 10x, 2x trial (goal to progress to unil) Sidelying Exercises clamshell Comments try next session Sitting Exercises sit to stand Reps/Minutes 5x Comments cues for neutral LE's, equal LE use, gluteal activation Standing Exercises step-up Comments try next session 1-2 sidestepping Resistance L2 TB distal thighs Comments may use band at ankles if doesn't cause knee pain quad stretch Reps/Minutes 2x30 Comments chair; stretch not pain gastroc stretch Reps/Minutes 2x30 Comments foot on wall Gait Training Gait Activity stairs Description step to Device Used ev rails Surface 4, 6 Comments more painful descend than ascend but unable to do either with step-over step pattern cues for gluteal activation ascend Self-Care/Home Management Treatment Education Other Education shown use of rolling pin quad, ITB, inner thigh PT-OP-R Modalities Start: 05/12/24 08:12 Freq: Status: Active Protocol: Document 05/14/24 08:06 [facility] (Rec: 05/18/24 16:09 [facility] [id number]) Electric Stimulation Electric Stimulation Interferential Current (IFC) Body Location left knee Intensity 18 Target/Sweep Sweep Combined With Heat/Cold Cold Pack Comments large ice pack on top and small under knee PT-OP-T Assessment and Plan Start: 05/12/24 08:12 Freq: Status: Active Protocol: Document 05/14/24 08:06 [facility] (Rec: 05/14/24 09:05 [facility] [id number]) Physical Therapy Assessment Impairments Impairments Activity Tolerance,Edema,Pain, ROM,Strength Goals One Impairment left knee pain as high as 7/10 limiting activities Short Term Goal (STG) Patient will be able to move sit to stand and sleep with minimal to no left knee pain STG Duration 06/17/24 Shelter Goal (LTG) Patient will be able to resume taking walks and playing pickleball with minimal to no pain LTG Duration 08/11/24 Three Impairment LEFS(lower extremity functional scale) 38% Impairment Loss of core stability with MMT of LE's and hip AB is 3/5 bilaterally. Short Term Goal (STG) Improve LEFS score to at least 55% as measure of improved activity tolerance and left knee function STG Duration 06/17/24 Reptile Keeper Goal (LTG) Improve LEFS score to at least 75% as measure of improved activity tolerance and left knee function. Two Impairment weakness left knee and hip, dec quad flexibility left Impairment SHELLEY score is 32/100, (16/50), 20-39% impaired of score 20-39 Short Term Goal (STG) Patient will be instructed in individualized, progressive HEP for the purposes of strengthening and flexibility. STG Duration 06/17/24 Shelter Goal (LTG) Patient will be independent and compliant with HEP and test 5/5 muscle strength left knee and hip and flexibility left quadriceps WNL. LTG Duration 08/11/24 Assessment Summary Assessment Patient had good tolerance recumbant elliptical and recumbant bicycle. She was surprised by how much overcompensates with right LE sit to stand. Performance of heel dig improved with feet over end of table, able to feel in hamstrings. Liked KT tape to her knee, left in place and asked to remove after no later than 5 days. Monster walking band distal thighs instead of sidelying hip abduction as pt reports knee pain with sidelying. IFES and ice entire left knee s/p ther ex. Physical Therapy Plan Frequency and Duration Frequency of Treatment 2x/Week Duration of treatment (weeks) 12 Plan of Care Start Date 05/12/24 Plan of Care End Date 08/11/24 Therapeutic Interventions Therapeutic Interventions Home Exercise Program,Manual Therapy,Patient/Caregiver Education,Self-Care/Home Management,Soft Tissue Mobilization,Taping, Therapeutic Activities, Therapeutic Exercises Modalities Cold Pack/Ice Massage,Electric Stimulation,Hot Packs Next Visit Focus/Plan Next Note Type Treatment Note Next Visit Plan Assess response to last session. Trial step-ups/downs 1-2 tatiana gamble DTM quads, ITB. Re-tape with KT tape
--- NOTE | 2024-05-19 09:46 | PT.OTN ---
Current Diagnoses Pain in left knee (05/19/24) Soft tissue disorder, unspecified (05/19/24) Difficulty in walking, not elsewhere classified (05/19/24) Weakness (05/19/24) Edema, unspecified (05/19/24) Presence of left artificial knee joint (05/19/24) Physical Therapy Treatment Note PT-OP-A Visit Information Start: 05/12/24 08:12 Freq: Status: Active Protocol: Document 05/19/24 09:02 SP (Rec: 05/19/24 09:50 SP [id number]) Out-Patient Physical Therapy Visit Information Visit Information Visit Type Treatment Note Visit Note 11/10 post eval Visit Start Time 09:02 Visit Stop Time 09:46 Visit Number 3 Number of [employer] Visits 1 PT-OP-B Current Condition Start: 05/12/24 08:12 Freq: Status: Active Protocol: Document 05/14/24 08:06 [facility] (Rec: 05/14/24 09:05 [facility] [id number]) Current Condition History of Current Condition Onset Date 09/05/23 Current Complaints left knee pain History of Current Condition left TKA by Dr. Munoz, had PT for 3 months. Walked with a walker for a week or two, no longer using a device. Pain is constant, including with sleeping, getting in and out of cars. No N/T or giving way. Has some popping. States she feels like her kneecap is the worst part. Has tried wearing a brace with struts on the side, has tried several. Wears compression stockings due to old ankle injury. States PT after surgery tried KT tape 1x, otherwise. Pain is really bad if tries to do bicyce, and lifting leg while laying on her side. Does stretching of hamstrings and calves, not quads. First step in playing pickle ball feels challenging. At night pain is constant and dull, getting up from set sharp pain in back of knee. Can't do hamstring curl at gym due to pain. Wore thigh high compression stockings right after surgery. Future Testing and Treatments Planned Sees Dr. Munoz on anticipated right TKA; had it scheduled for April but cancelled due to left knee issues. Treatment Goals Patient/Caregiver Goals Be able to move from sit to stand, play pickleball, and sleep without pain. PT-OP-C Subjective Start: 05/12/24 08:12 Freq: Status: Active Protocol: Document 05/19/24 09:02 SP (Rec: 05/19/24 09:50 SP [id number]) OP-PT Subjective Patient Comments Patient Comments Pt reports is feeling alot better, states the Ktaping helping L knee supported and just removed this am, estim and CP helping pain control, and newly taking Meloxican. She is thinking of starting a new weight loss program [employer]. PT-OP-G Mobility & Gait Start: 05/12/24 08:12 Freq: Status: Active Protocol: Document 05/12/24 09:44 [facility] (Rec: 05/12/24 15:19 [facility] [id number]) OP Mobility Evaluation Transfers Sit to Stand indep but with dec weightbearing left LE Car Transfers painful Floor Transfers painful OP Gait Assessment Gait Gait Assistance Required: Independent Assistive Devices Assistive Device None Gait Deviations General Gait Pattern Antalgic Factors Limiting Gait Function Factors Limiting Gait Function Decreased Strength,Pain Stair Climbing Evaluation Evaluation Level of Assist On Stairs Independent Technique/Endurance Stair Climbing Technique Step to Step Stair Climbing Set # Repetitions (reps) 4 PT-OP-H Neuro Start: 05/12/24 08:12 Freq: Status: Active Protocol: Document 05/12/24 09:44 [facility] (Rec: 05/12/24 15:19 [facility] [id number]) Sensation Evaluation Gross Sensation Gross Sensation WNL PT-OP-J Posture/Palpation/Skin Start: 05/12/24 08:12 Freq: Status: Active Protocol: Document 05/12/24 09:44 [facility] (Rec: 05/12/24 10:33 [facility] [id number]) Posture Evaluation Position Standing Pelvis Posture Anteriorly Tilted Weight Distribution Weight Shifted Right Hip Posture (L) Internally Rotated,(R) Internally Rotated Knee Posture (R) Neutral,(L) Genu Valgus Patellar Posture (L) Laterally Tilted Ankle/Foot Posture (L) Pronated,(L) Forefoot Eversion Foot Arch (L) Medium Arch,(R) Medium Arch Palpation Assessment Location posterior knee Palpation Findings Edema,Tenderness knee joint line left Palpation Findings Edema,Tenderness Skin Assessment Edema Assessment left knee Edema Type Non-Pitting Edema Degree 2+ Edema Appearance Puffy Subjective Edema Description Tightness PT-OP-K Range of Motion Start: 05/12/24 08:12 Freq: Status: Active Protocol: Document 05/12/24 09:44 [facility] (Rec: 05/12/24 15:19 [facility] [id number]) Hip Goniometric Range of Motion Hip ev Hip ROM WFL Yes Comments except left hip ER 50, IR 5 Knee Goniometric Range of Motion Knee Left Flexion Active (degrees) 124 Extension Active (degrees) 5 Right Knee ROM WFL Yes Ankle and Foot Goniometric Range of Motion Ankle and Foot ev Ankle/Foot ROM WFL Yes PT-OP-M Strength Start: 05/12/24 08:12 Freq: Status: Active Protocol: Document 05/12/24 09:44 [facility] (Rec: 05/12/24 15:19 [facility]AK [id number]) Hip Strength Hip Manual Muscle Testing Left Flexion (L2) 4- Good- Extension (S1) 4- Good- Abduction 4- Good- Adduction 4- Good- External Rotation 4- Good- Internal Rotation 4 Good Right Flexion (L2) 4- Good- Extension (S1) 4- Good- Abduction 4- Good- Adduction 4 Good External Rotation 4- Good- Internal Rotation 4 Good Knee Strength Knee Manual Muscle Testing Left Flexion (S2) 4- Good- Extension (L3) 4 Good Right Flexion (S2) 4+ Good+ Extension (L3) 4+ Good+ Ankle/Foot Strength Ankle and Foot Manual Muscle Testing ev Dorsiflexion (L4) 5 Normal Plantarflexion (S1) 5 Normal PT-OP-Q Treatments Start: 05/12/24 08:12 Freq: Status: Active Protocol: Document 05/19/24 09:02 SP (Rec: 05/19/24 09:50 SP [id number]) Cardio Equipment Recumbent Elliptical (Biodex) Duration (Minutes) 6 Resistance 2>3 Seat Position 8 Other improved neutral LE alignment: LEs only, 40-45 RPMs Recumbent Bicycle Duration (Minutes) 4 Resistance 3 Other After Biodex as pt looking for machine to use at gym. Gym Equipment Shuttle Recovery Unilateral Squats Details cued mid foot/heel drive, knee alignment- good med quad/glut tiring Resistance R 37 ( 1 navy), L 25 > 37#(1 navy) Reps/Time R x20, L 25 # 10 & 37# x15 Bilateral Squats Details ed for [employer] gym set up and ROM tolerated. Resistance 50# (2 navy)> 62# (2 nAVY) Reps/Time 20 reps 50#, 10 reps 62# ( continue next tx) Therapeutic Exercises Standing Exercises knee mobility on step Standing Exercise Name trialed Side left Comments self pressure PA tibia for comfort step-up Standing Exercise Name SL repeated- added toHEP declined HO Side bilateral Equipment Used light 1 HR, 6 step (will use aerobic step at gym) Reps/Minutes x15 reps Comments cued knee with and behind toes , heel glut drive- good mid quad/glut tiring sidestepping Standing Exercise Name lateral stepping- HEP reviewed Side bilateral Resistance L2 TB at ankles (gave teal for ankles for [place] 05/19) Reps/Minutes 20 ft x2 laps Comments no pain in knees, cued for toe in demonstrates feet //. Gait Training Gait Activity stairs Description step to, receiprocal stepping Device Used light 1 HR ascend, BUE moderate descend support 6 step Surface 4 step ascend/desc light 1 HR receiprocal, moderate heavy BUE 6 stairs Comments able perform receiprocal stepping ascend light glide 1 UE onrail, Moderate BUE on HR descending due to limitation in L knee flexion on 6 step was ableto light glide hands on rail receiprocal stepping 4 step. Manual Therapy Treatment Taping left knee Treatment Focus patallar stabililzation Type of Tape Kinesio Tape Skin Inspection intact Comments skin cleaned with rubbing alcohol, Biofreeze applied. 2 fan strips posterior left knee paper off tension, Y strip for patellar tracking ( base medial) 75% tension , 2 Y strips anterior knee one starting sup to patella and tails along med and lat patella, one staring patellar tuberosity and tails along med and lat patella into distal thigh both at 50% tension PT-OP-R Modalities Start: 05/12/24 08:12 Freq: Status: Active Protocol: Document 05/14/24 08:06 [facility] (Rec: 05/18/24 16:09 SAK [id number]) Electric Stimulation Electric Stimulation Interferential Current (IFC) Body Location left knee Intensity 18 Target/Sweep Sweep Combined With Heat/Cold Cold Pack Comments large ice pack on top and small under knee PT-OP-T Assessment and Plan Start: 05/12/24 08:12 Freq: Status: Active Protocol: Document 05/19/24 09:02 SP (Rec: 05/19/24 09:50 SP [id number]) Physical Therapy Assessment Goals One Impairment left knee pain as high as 7/10 limiting activities Short Term Goal (STG) Patient will be able to move sit to stand and sleep with minimal to no left knee pain STG Duration 06/17/24 Legal Activity Adjudicator Goal (LTG) Patient will be able to resume taking walks and playing pickleball with minimal to no pain LTG Duration 08/11/24 Three Impairment LEFS(lower extremity functional scale) 38% Impairment Loss of core stability with MMT of LE's and hip AB is 3/5 bilaterally. Short Term Goal (STG) Improve LEFS score to at least 55% as measure of improved activity tolerance and left knee function STG Duration 06/17/24 Legal Activity Adjudicator Goal (LTG) Improve LEFS score to at least 75% as measure of improved activity tolerance and left knee function. Two Impairment weakness left knee and hip, dec quad flexibility left Impairment SHELLEY score is 32/100, (16/50), 20-39% impaired of score 20-39 Short Term Goal (STG) Patient will be instructed in individualized, progressive HEP for the purposes of strengthening and flexibility. STG Duration 06/17/24 Legal Activity Adjudicator Goal (LTG) Patient will be independent and compliant with HEP and test 5/5 muscle strength left knee and hip and flexibility left quadriceps WNL. LTG Duration 08/11/24 Assessment Summary Assessment Pt tolerated increased activity level today, able to complete recumbent bike no reports of pain and able to increased resistance on shuttle recovery today, cues for midfoot/heel drive for more quad, glut drive effort noted less to almost no discomfort muscle tiring with same response added steps for gym additional activity continue as HEP but declined HO support. Physical Therapy Plan Frequency and Duration Frequency of Treatment 2x/Week Duration of treatment (weeks) 12 Plan of Care Start Date 05/12/24 Plan of Care End Date 08/11/24 Therapeutic Interventions Therapeutic Interventions Home Exercise Program,Manual Therapy,Patient/Caregiver Education,Self-Care/Home Management,Soft Tissue Mobilization,Taping, Therapeutic Activities, Therapeutic Exercises Modalities Cold Pack/Ice Massage,Electric Stimulation,Hot Packs Next Visit Focus/Plan Next Note Type Treatment Note Next Visit Plan Assess response to last session. Trial step-ups/downs 1-2 step, tatiana, DTM quads, ITB. Re-tape with KT tape
--- NOTE | 2024-05-22 12:22 | PT.OTN ---
Current Diagnoses Pain in left knee (05/22/24) Soft tissue disorder, unspecified (05/22/24) Difficulty in walking, not elsewhere classified (05/22/24) Weakness (05/22/24) Edema, unspecified (05/22/24) Presence of left artificial knee joint (05/22/24) Physical Therapy Treatment Note PT-OP-A Visit Information Start: 05/12/24 08:12 Freq: Status: Active Protocol: Document 05/22/24 11:17 SAK (Rec: 05/22/24 12:22 [facility] [id number]) Out-Patient Physical Therapy Visit Information Visit Information Visit Type Treatment Note Visit Note 12/11 post eval Visit Start Time 11:18 Visit Number 4 PT-OP-B Current Condition Start: 05/12/24 08:12 Freq: Status: Active Protocol: Document 05/22/24 11:17 SAK (Rec: 05/22/24 12:22 [facility] [id number]) Current Condition History of Current Condition Onset Date 09/05/23 Current Complaints left knee pain History of Current Condition left TKA by Dr. Munoz, had PT for 3 months. Walked with a walker for a week or two, no longer using a device. Pain is constant, including with sleeping, getting in and out of cars. No N/T or giving way. Has some popping. States she feels like her kneecap is the worst part. Has tried wearing a brace with struts on the side, has tried several. Wears compression stockings due to old ankle injury. States PT after surgery tried KT tape 1x, otherwise. Pain is really bad if tries to do bicyce, and lifting leg while laying on her side. Does stretching of hamstrings and calves, not quads. First step in playing pickle ball feels challenging. At night pain is constant and dull, getting up from set sharp pain in back of knee. Can't do hamstring curl at gym due to pain. Wore thigh high compression stockings right after surgery. Future Testing and Treatments Planned Sees Dr. Munoz on anticipated right TKA; had it scheduled for April but cancelled due to left knee issues. PT-OP-C Subjective Start: 05/12/24 08:12 Freq: Status: Active Protocol: Document 05/22/24 11:17 SAK (Rec: 05/22/24 12:22 [facility] [id number]) OP-PT Subjective Patient Comments Patient Comments Feels KT tape very helpful, missed having it on the back of her knee, feels it improves the swelling. Also feels Meloxicam helpful. Going to see Dr. Wiseman for her right knee because its bone on bone had to cancel scheduled surgery due to difficulty with left knee recovery.. Was able to play pickle ball yesterday, not as fast and feels in knees when stopping. PT-OP-G Mobility & Gait Start: 05/12/24 08:12 Freq: Status: Active Protocol: Document 05/12/24 09:44 [facility] (Rec: 05/12/24 15:19 [facility] [id number]) OP Mobility Evaluation Transfers Sit to Stand indep but with dec weightbearing left LE Car Transfers painful Floor Transfers painful OP Gait Assessment Gait Gait Assistance Required: Independent Assistive Devices Assistive Device None Gait Deviations General Gait Pattern Antalgic Factors Limiting Gait Function Factors Limiting Gait Function Decreased Strength,Pain Stair Climbing Evaluation Evaluation Level of Assist On Stairs Independent Technique/Endurance Stair Climbing Technique Step to Step Stair Climbing Set # Repetitions (reps) 4 PT-OP-H Neuro Start: 05/12/24 08:12 Freq: Status: Active Protocol: Document 05/12/24 09:44 [facility] (Rec: 05/12/24 15:19 [facility] [id number]) Sensation Evaluation Gross Sensation Gross Sensation WNL PT-OP-J Posture/Palpation/Skin Start: 05/12/24 08:12 Freq: Status: Active Protocol: Document 05/12/24 09:44 [facility] (Rec: 05/12/24 10:33 [facility] [id number]) Posture Evaluation Position Standing Pelvis Posture Anteriorly Tilted Weight Distribution Weight Shifted Right Hip Posture (L) Internally Rotated,(R) Internally Rotated Knee Posture (R) Neutral,(L) Genu Valgus Patellar Posture (L) Laterally Tilted Ankle/Foot Posture (L) Pronated,(L) Forefoot Eversion Foot Arch (L) Medium Arch,(R) Medium Arch Palpation Assessment Location posterior knee Palpation Findings Edema,Tenderness knee joint line left Palpation Findings Edema,Tenderness Skin Assessment Edema Assessment left knee Edema Type Non-Pitting Edema Degree 2+ Edema Appearance Puffy Subjective Edema Description Tightness PT-OP-K Range of Motion Start: 05/12/24 08:12 Freq: Status: Active Protocol: Document 05/12/24 09:44 [facility] (Rec: 05/12/24 15:19 [facility] [id number]) Hip Goniometric Range of Motion Hip ev Hip ROM WFL Yes Comments except left hip ER 50, IR 5 Knee Goniometric Range of Motion Knee Left Flexion Active (degrees) 124 Extension Active (degrees) 5 Right Knee ROM WFL Yes Ankle and Foot Goniometric Range of Motion Ankle and Foot ev Ankle/Foot ROM WFL Yes PT-OP-M Strength Start: 05/12/24 08:12 Freq: Status: Active Protocol: Document 05/12/24 09:44 [facility] (Rec: 05/12/24 15:19 [facility] [id number]) Hip Strength Hip Manual Muscle Testing Left Flexion (L2) 4- Good- Extension (S1) 4- Good- Abduction 4- Good- Adduction 4- Good- External Rotation 4- Good- Internal Rotation 4 Good Right Flexion (L2) 4- Good- Extension (S1) 4- Good- Abduction 4- Good- Adduction 4 Good External Rotation 4- Good- Internal Rotation 4 Good Knee Strength Knee Manual Muscle Testing Left Flexion (S2) 4- Good- Extension (L3) 4 Good Right Flexion (S2) 4+ Good+ Extension (L3) 4+ Good+ Ankle/Foot Strength Ankle and Foot Manual Muscle Testing ev Dorsiflexion (L4) 5 Normal Plantarflexion (S1) 5 Normal PT-OP-Q Treatments Start: 05/12/24 08:12 Freq: Status: Active Protocol: Document 05/22/24 11:17 [facility] (Rec: 05/22/24 12:22 [facility] [id number]) Cardio Equipment Recumbent Elliptical (Biodex) Duration (Minutes) 7 Resistance 4 Seat Position 8 Other improved neutral LE alignment: LEs only, 40-45 RPMs Manual Therapy Treatment Soft Tissue Mobilization scar mobilization Mobilization Type Instrument Assisted,Rolling, Strumming Intensity/Depth Moderate Comments medium suction tool L quad, ITB Mobilization Type Myofascial Release,Strumming Intensity/Depth Moderate Taping left knee Treatment Focus patallar stabililzation Type of Tape Kinesio Tape Skin Inspection intact Comments skin cleaned with rubbing alcohol, Biofreeze applied. 2 fan strips posterior left knee paper off tension, Y strip for patellar tracking ( base medial) 75% tension , 2 Y strips anterior knee one starting sup to patella and tails along med and lat patella, one starting patellar tuberosity and tails along med and lat patella into distal thigh both at 50% tension. Posterior knee 2 fan strips for edema reduction crossed pattern. PT-OP-R Modalities Start: 05/12/24 08:12 Freq: Status: Active Protocol: Document 05/22/24 11:17 [facility] (Rec: 05/22/24 12:22 [facility] [id number]) Electric Stimulation Electric Stimulation Interferential Current (IFC) Body Location left knee Intensity 18 Target/Sweep Sweep Combined With Heat/Cold Cold Pack Comments large ice pack on top and small under knee PT-OP-T Assessment and Plan Start: 05/12/24 08:12 Freq: Status: Active Protocol: Document 05/22/24 11:17 [facility] (Rec: 05/22/24 12:22 [facility] [id number]) Physical Therapy Assessment Impairments Impairments Activity Tolerance,Edema,Pain, ROM,Strength Goals One Impairment left knee pain as high as 7/10 limiting activities Short Term Goal (STG) Patient will be able to move sit to stand and sleep with minimal to no left knee pain STG Duration 06/17/24 Senior Living Goal (LTG) Patient will be able to resume taking walks and playing pickleball with minimal to no pain LTG Duration 08/11/24 Three Impairment LEFS(lower extremity functional scale) 38% Impairment Loss of core stability with MMT of LE's and hip AB is 3/5 bilaterally. Short Term Goal (STG) Improve LEFS score to at least 55% as measure of improved activity tolerance and left knee function STG Duration 06/17/24 [place] Goal (LTG) Improve LEFS score to at least 75% as measure of improved activity tolerance and left knee function. Two Impairment weakness left knee and hip, dec quad flexibility left Impairment SHELLEY score is 32/100, (16/50), 20-39% impaired of score 20-39 Short Term Goal (STG) Patient will be instructed in individualized, progressive HEP for the purposes of strengthening and flexibility. STG Duration 06/17/24 Senior Living Goal (LTG) Patient will be independent and compliant with HEP and test 5/5 muscle strength left knee and hip and flexibility left quadriceps WNL. LTG Duration 08/11/24 Progress Towards Goals Progress Towards Goals Progressing Toward Goals Assessment Summary Assessment Good progress toward goals, patient reporting decreased pain, benefits from KT tape, able to tape both both anterior and posterior knee today. Ended session with IFES and ice anterior and posterior knee; patient has ordered TENS unit. Physical Therapy Plan Frequency and Duration Frequency of Treatment 2x/Week Duration of treatment (weeks) 12 Plan of Care Start Date 05/12/24 Plan of Care End Date 08/11/24 Therapeutic Interventions Therapeutic Interventions Home Exercise Program,Manual Therapy,Patient/Caregiver Education,Self-Care/Home Management,Soft Tissue Mobilization,Taping, Therapeutic Activities, Therapeutic Exercises Modalities Cold Pack/Ice Massage,Electric Stimulation,Hot Packs Next Visit Focus/Plan Next Note Type Treatment Note Next Visit Plan Assess response to DTM and scar mobilization. Trial clamshell and sidelying hip abduction and assess if hip abd still painful, add to HEP if not.
--- NOTE | 2024-05-26 10:30 | PT.OTN ---
Current Diagnoses Pain in left knee (05/26/24) Soft tissue disorder, unspecified (05/26/24) Difficulty in walking, not elsewhere classified (05/26/24) Weakness (05/26/24) Edema, unspecified (05/26/24) Presence of left artificial knee joint (05/26/24) Physical Therapy Treatment Note PT-OP-A Visit Information Start: 05/12/24 08:12 Freq: Status: Active Protocol: Document 05/26/24 09:51 SP (Rec: 05/26/24 10:34 SP [id number]) Out-Patient Physical Therapy Visit Information Visit Information Visit Type Treatment Note Visit Note 01/10 post eval Visit Start Time 09:51 Visit Stop Time 10:30 Visit Number 5 Number of MEN'S LOCKER ROOM ATTENDANT Visits 1 PT-OP-B Current Condition Start: 05/12/24 08:12 Freq: Status: Active Protocol: Document 05/22/24 11:17 SAK (Rec: 05/22/24 12:22 SAK [id number]) Current Condition History of Current Condition Onset Date 09/05/23 Current Complaints left knee pain History of Current Condition left TKA by Dr. Munoz, had PT for 3 months. Walked with a walker for a week or two, no longer using a device. Pain is constant, including with sleeping, getting in and out of cars. No N/T or giving way. Has some popping. States she feels like her kneecap is the worst part. Has tried wearing a brace with struts on the side, has tried several. Wears compression stockings due to old ankle injury. States PT after surgery tried KT tape 1x, otherwise. Pain is really bad if tries to do bicyce, and lifting leg while laying on her side. Does stretching of hamstrings and calves, not quads. First step in playing pickle ball feels challenging. At night pain is constant and dull, getting up from set sharp pain in back of knee. Can't do hamstring curl at gym due to pain. Wore thigh high compression stockings right after surgery. Future Testing and Treatments Planned Sees Dr. Munoz on anticipated right TKA; had it scheduled for April but cancelled due to left knee issues. PT-OP-C Subjective Start: 05/12/24 08:12 Freq: Status: Active Protocol: Document 05/26/24 09:51 SP (Rec: 05/26/24 10:34 SP [id number]) OP-PT Subjective Patient Comments Patient Comments Pt reports didn't get HEP Fri or Sat due to stomach issues. She reports ths Ktaping still helping, requested leave on. She was able to play Pickleball 1.5 hrs short distance on court, pnfree. She is propping up Leg when sitting for comfort. She reports still having pain with clamshell but keeps trying. PT-OP-G Mobility & Gait Start: 05/12/24 08:12 Freq: Status: Active Protocol: Document 05/12/24 09:44 SAK (Rec: 05/12/24 15:19 SAK [id number]) OP Mobility Evaluation Transfers Sit to Stand indep but with dec weightbearing left LE Car Transfers painful Floor Transfers painful OP Gait Assessment Gait Gait Assistance Required: Independent Assistive Devices Assistive Device None Gait Deviations General Gait Pattern Antalgic Factors Limiting Gait Function Factors Limiting Gait Function Decreased Strength,Pain Stair Climbing Evaluation Evaluation Level of Assist On Stairs Independent Technique/Endurance Stair Climbing Technique Step to Step Stair Climbing Set # Repetitions (reps) 4 PT-OP-H Neuro Start: 05/12/24 08:12 Freq: Status: Active Protocol: Document 05/12/24 09:44 SAK (Rec: 05/12/24 15:19 SAK [id number]) Sensation Evaluation Gross Sensation Gross Sensation WNL PT-OP-J Posture/Palpation/Skin Start: 05/12/24 08:12 Freq: Status: Active Protocol: Document 05/12/24 09:44 SAK (Rec: 05/12/24 10:33 SAK [id number]) Posture Evaluation Position Standing Pelvis Posture Anteriorly Tilted Weight Distribution Weight Shifted Right Hip Posture (L) Internally Rotated,(R) Internally Rotated Knee Posture (R) Neutral,(L) Genu Valgus Patellar Posture (L) Laterally Tilted Ankle/Foot Posture (L) Pronated,(L) Forefoot Eversion Foot Arch (L) Medium Arch,(R) Medium Arch Palpation Assessment Location posterior knee Palpation Findings Edema,Tenderness knee joint line left Palpation Findings Edema,Tenderness Skin Assessment Edema Assessment left knee Edema Type Non-Pitting Edema Degree 2+ Edema Appearance Puffy Subjective Edema Description Tightness PT-OP-K Range of Motion Start: 05/12/24 08:12 Freq: Status: Active Protocol: Document 05/26/24 09:51 SP (Rec: 05/26/24 10:34 SP [id number]) Knee Goniometric Range of Motion Knee Left Knee ROM WFL No Flexion Active (degrees) 120 Extension Active (degrees) 1 PT-OP-M Strength Start: 05/12/24 08:12 Freq: Status: Active Protocol: Document 05/12/24 09:44 SAK (Rec: 05/12/24 15:19 SAK [id number]) Hip Strength Hip Manual Muscle Testing Left Flexion (L2) 4- Good- Extension (S1) 4- Good- Abduction 4- Good- Adduction 4- Good- External Rotation 4- Good- Internal Rotation 4 Good Right Flexion (L2) 4- Good- Extension (S1) 4- Good- Abduction 4- Good- Adduction 4 Good External Rotation 4- Good- Internal Rotation 4 Good Knee Strength Knee Manual Muscle Testing Left Flexion (S2) 4- Good- Extension (L3) 4 Good Right Flexion (S2) 4+ Good+ Extension (L3) 4+ Good+ Ankle/Foot Strength Ankle and Foot Manual Muscle Testing bam Dorsiflexion (L4) 5 Normal Plantarflexion (S1) 5 Normal PT-OP-Q Treatments Start: 05/12/24 08:12 Freq: Status: Active Protocol: Document 05/26/24 09:51 SP (Rec: 05/26/24 10:34 SP [id number]) Cardio Equipment Recumbent Elliptical (BiodManyeta) Duration (Minutes) 9 Resistance 4 Seat Position 8>7 (6-8 min) Other improved neutral LE alignment: LEs only, 40-45 RPMs Gym Equipment Shuttle Recovery Unilateral Squats Details good form/knee alignment Resistance 37# (navy) Reps/Time 20 reps R, x15 reps L Bilateral Squats Details good knee alignment, good stretch deep squat Resistance 62# (2 navy) Reps/Time x15 reps Therapeutic Exercises Supine Exercises bridge Supine Exercise Name bam, unil Reps/Minutes 5 SH x5 Bam, 2 reps L caused pain stopped, R ok Comments pnfree bam. Standing Exercises step down Standing Exercise Name trialed fwd step down Equipment Used 4step >1 text book Reps/Minutes 2 reps each Comments causes irritation anterior L knee - stopped- HOLD 05/26 knee mobility on step Standing Exercise Name added to HEP- declined HO Side left Comments self pressure PA tibia for comfort Manual Therapy Treatment Soft Tissue Mobilization scar mobilization Comments good mobility through ktaping L quad, ITB Mobilization Type Myofascial Release,Strumming Intensity/Depth Moderate PT-OP-R Modalities Start: 05/12/24 08:12 Freq: Status: Active Protocol: Document 05/22/24 11:17 SAK (Rec: 05/22/24 12:22 SAK [id number]) Electric Stimulation Electric Stimulation Interferential Current (IFC) Body Location left knee Intensity 18 Target/Sweep Sweep Combined With Heat/Cold Cold Pack Comments large ice pack on top and small under knee PT-OP-T Assessment and Plan Start: 05/12/24 08:12 Freq: Status: Active Protocol: Document 05/26/24 09:51 SP (Rec: 05/26/24 10:34 SP [id number]) Physical Therapy Assessment Goals One Impairment left knee pain as high as 7/10 limiting activities Short Term Goal (STG) Patient will be able to move sit to stand and sleep with minimal to no left knee pain STG Duration 06/17/24 Penitentiary Goal (LTG) Patient will be able to resume taking walks and playing pickleball with minimal to no pain LTG Duration 08/11/24 Three Impairment LEFS(lower extremity functional scale) 38% Impairment Loss of core stability with MMT of LE's and hip AB is 3/5 bilaterally. Short Term Goal (STG) Improve LEFS score to at least 55% as measure of improved activity tolerance and left knee function STG Duration 06/17/24 Microphone Boom Operator Goal (LTG) Improve LEFS score to at least 75% as measure of improved activity tolerance and left knee function. Two Impairment weakness left knee and hip, dec quad flexibility left Impairment SHELLEY score is 32/100, (16/50), 20-39% impaired of score 20-39 Short Term Goal (STG) Patient will be instructed in individualized, progressive HEP for the purposes of strengthening and flexibility. STG Duration 06/17/24 Microphone Boom Operator Goal (LTG) Patient will be independent and compliant with HEP and test 5/5 muscle strength left knee and hip and flexibility left quadriceps WNL. LTG Duration 08/11/24 Assessment Summary Assessment Improvement in MF mobility of scar. Reports Ktaping continues to provide patella mobility support to L knee, will remove tomorrow. 1-120 deg L knee, tolerated ther ex on s huttle recovery painfree range with good quad/glut tiring. Trialed eccentric step down fwd but causes irritation, will hold for now. Physical Therapy Plan Frequency and Duration Frequency of Treatment 2x/Week Duration of treatment (weeks) 12 Plan of Care Start Date 05/12/24 Plan of Care End Date 08/11/24 Therapeutic Interventions Therapeutic Interventions Home Exercise Program,Manual Therapy,Patient/Caregiver Education,Self-Care/Home Management,Soft Tissue Mobilization,Taping, Therapeutic Activities, Therapeutic Exercises Modalities Cold Pack/Ice Massage,Electric Stimulation,Hot Packs Next Visit Focus/Plan Next Note Type Treatment Note Next Visit Plan Next tx: recheck clamshell and try sidelying hip abduction and assess if hip abd still painful, add to HEP if not.
--- NOTE | 2024-05-30 09:43 | PT.OTN ---
Current Diagnoses Pain in left knee (05/30/24) Soft tissue disorder, unspecified (05/30/24) Difficulty in walking, not elsewhere classified (05/30/24) Weakness (05/30/24) Edema, unspecified (05/30/24) Presence of left artificial knee joint (05/30/24) Physical Therapy Treatment Note PT-OP-A Visit Information Start: 05/12/24 08:12 Freq: Status: Active Protocol: Document 05/30/24 09:05 SP (Rec: 05/30/24 09:46 SP [id number]) Out-Patient Physical Therapy Visit Information Visit Information Visit Type Treatment Note Visit Note 02/10 post eval Visit Start Time 09:05 Visit Stop Time 09:43 Visit Number 6 Number of IT INFRASTRUCTURE PROJECT MANAGER Visits 2 PT-OP-B Current Condition Start: 05/12/24 08:12 Freq: Status: Active Protocol: Document 05/22/24 11:17 SAK (Rec: 05/22/24 12:22 SAK [id number]) Current Condition History of Current Condition Onset Date 09/05/23 Current Complaints left knee pain History of Current Condition left TKA by Dr. Munoz, had PT for 3 months. Walked with a walker for a week or two, no longer using a device. Pain is constant, including with sleeping, getting in and out of cars. No N/T or giving way. Has some popping. States she feels like her kneecap is the worst part. Has tried wearing a brace with struts on the side, has tried several. Wears compression stockings due to old ankle injury. States PT after surgery tried KT tape 1x, otherwise. Pain is really bad if tries to do bicyce, and lifting leg while laying on her side. Does stretching of hamstrings and calves, not quads. First step in playing pickle ball feels challenging. At night pain is constant and dull, getting up from set sharp pain in back of knee. Can't do hamstring curl at gym due to pain. Wore thigh high compression stockings right after surgery. Future Testing and Treatments Planned Sees Dr. Munoz on anticipated right TKA; had it scheduled for April but cancelled due to left knee issues. PT-OP-C Subjective Start: 05/12/24 08:12 Freq: Status: Active Protocol: Document 05/30/24 09:05 SP (Rec: 05/30/24 09:46 SP [id number]) OP-PT Subjective Patient Comments Patient Comments Pt reports her L knee is feeling alot better. SHe cand go up stairs receiprocal stepping but down is still discomfort. She has been going to gym at pool. Pt saw Dr Kade Haynes and results of re- xrayed and pleased with space L knee post surgery but sub patella little thicker and maybe why still little resistance. R knees almost bone on bone on Lateral jt and whyhaving pain with activity. Will assess surgery R in Sep. PT-OP-G Mobility & Gait Start: 05/12/24 08:12 Freq: Status: Active Protocol: Document 05/12/24 09:44 SAK (Rec: 05/12/24 15:19 SAK [id number]) OP Mobility Evaluation Transfers Sit to Stand indep but with dec weightbearing left LE Car Transfers painful Floor Transfers painful OP Gait Assessment Gait Gait Assistance Required: Independent Assistive Devices Assistive Device None Gait Deviations General Gait Pattern Antalgic Factors Limiting Gait Function Factors Limiting Gait Function Decreased Strength,Pain Stair Climbing Evaluation Evaluation Level of Assist On Stairs Independent Technique/Endurance Stair Climbing Technique Step to Step Stair Climbing Set # Repetitions (reps) 4 PT-OP-H Neuro Start: 05/12/24 08:12 Freq: Status: Active Protocol: Document 05/12/24 09:44 SAK (Rec: 05/12/24 15:19 SAK [id number]) Sensation Evaluation Gross Sensation Gross Sensation WNL PT-OP-J Posture/Palpation/Skin Start: 05/12/24 08:12 Freq: Status: Active Protocol: Document 05/12/24 09:44 SAK (Rec: 05/12/24 10:33 SAK [id number]) Posture Evaluation Position Standing Pelvis Posture Anteriorly Tilted Weight Distribution Weight Shifted Right Hip Posture (L) Internally Rotated,(R) Internally Rotated Knee Posture (R) Neutral,(L) Genu Valgus Patellar Posture (L) Laterally Tilted Ankle/Foot Posture (L) Pronated,(L) Forefoot Eversion Foot Arch (L) Medium Arch,(R) Medium Arch Palpation Assessment Location posterior knee Palpation Findings Edema,Tenderness knee joint line left Palpation Findings Edema,Tenderness Skin Assessment Edema Assessment left knee Edema Type Non-Pitting Edema Degree 2+ Edema Appearance Puffy Subjective Edema Description Tightness PT-OP-K Range of Motion Start: 05/12/24 08:12 Freq: Status: Active Protocol: Document 05/26/24 09:51 SP (Rec: 05/26/24 10:34 SP [id number]) Knee Goniometric Range of Motion Knee Left Knee ROM WFL No Flexion Active (degrees) 120 Extension Active (degrees) 1 PT-OP-M Strength Start: 05/12/24 08:12 Freq: Status: Active Protocol: Document 05/12/24 09:44 SAK (Rec: 05/12/24 15:19 SAK [id number]) Hip Strength Hip Manual Muscle Testing Left Flexion (L2) 4- Good- Extension (S1) 4- Good- Abduction 4- Good- Adduction 4- Good- External Rotation 4- Good- Internal Rotation 4 Good Right Flexion (L2) 4- Good- Extension (S1) 4- Good- Abduction 4- Good- Adduction 4 Good External Rotation 4- Good- Internal Rotation 4 Good Knee Strength Knee Manual Muscle Testing Left Flexion (S2) 4- Good- Extension (L3) 4 Good Right Flexion (S2) 4+ Good+ Extension (L3) 4+ Good+ Ankle/Foot Strength Ankle and Foot Manual Muscle Testing ev Dorsiflexion (L4) 5 Normal Plantarflexion (S1) 5 Normal PT-OP-Q Treatments Start: 05/12/24 08:12 Freq: Status: Active Protocol: Document 05/30/24 09:05 SP (Rec: 05/30/24 09:46 SP [id number]) Cardio Equipment Recumbent Stepper (Sci-Fit) Duration (Minutes) 9 Resistance 2.5 Seat Position 10 Other LEs only 1.19 miles Gym Equipment Shuttle Recovery Unilateral Squats Details good knee alignment /c mid foot- cued glut drive Resistance 37# (navy) Reps/Time 20 reps B -stayed Bilateral Squats Details good knee alignment, good stretch deep squat Resistance 62# (2 navy) Reps/Time x20 Therapeutic Exercises Sidelying Exercises hip abduction Sidelying Exercise Name trialed in PT- added to HEP /c HO Side left Resistance AROM Equipment Used bottom leg bent Reps/Minutes 2x10 Comments cued stacked alignment, no roll back, leg ext clamshell Sidelying Exercise Name reviewed HEP Side left Resistance ev, AROM Reps/Minutes 2x10 Comments cued painfree range- was going to high causing pain- better pnfree 05/30 Sitting Exercises sit to stand Equipment Used mesh chair Reps/Minutes x10 Comments cued knees apart, slower eccentric control sit, R foot more front Standing Exercises calf raises & eccentric stretch Standing Exercise Name added to HEP Side bilateral Equipment Used rail support, 6step Reps/Minutes x15 Comments cued slower gastroc stretch pause 2 SH, calf raise- feels good. knee mobility on step Standing Exercise Name reviewed Side left Equipment Used ft 2nd step, rail support Comments tightness reductionin knee PT-OP-R Modalities Start: 05/12/24 08:12 Freq: Status: Active Protocol: Document 05/22/24 11:17 SAK (Rec: 05/22/24 12:22 SAK [id number]) Electric Stimulation Electric Stimulation Interferential Current (IFC) Body Location left knee Intensity 18 Target/Sweep Sweep Combined With Heat/Cold Cold Pack Comments large ice pack on top and small under knee PT-OP-T Assessment and Plan Start: 05/12/24 08:12 Freq: Status: Active Protocol: Document 05/30/24 09:05 SP (Rec: 05/30/24 09:46 SP [id number]) Physical Therapy Assessment Goals One Impairment left knee pain as high as 7/10 limiting activities Short Term Goal (STG) Patient will be able to move sit to stand and sleep with minimal to no left knee pain STG Duration 06/17/24 Usp Goal (LTG) Patient will be able to resume taking walks and playing pickleball with minimal to no pain LTG Duration 08/11/24 Three Impairment LEFS(lower extremity functional scale) 38% Impairment Loss of core stability with MMT of LE's and hip AB is 3/5 bilaterally. Short Term Goal (STG) Improve LEFS score to at least 55% as measure of improved activity tolerance and left knee function STG Duration 06/17/24 Usp Goal (LTG) Improve LEFS score to at least 75% as measure of improved activity tolerance and left knee function. Two Impairment weakness left knee and hip, dec quad flexibility left Impairment SHELLEY score is 32/100, (16/50), 20-39% impaired of score 20-39 Short Term Goal (STG) Patient will be instructed in individualized, progressive HEP for the purposes of strengthening and flexibility. STG Duration 06/17/24 Rug Hooker Hand Goal (LTG) Patient will be independent and compliant with HEP and test 5/5 muscle strength left knee and hip and flexibility left quadriceps WNL. LTG Duration 08/11/24 Assessment Summary Assessment Pt good tolerance to ther ex during tx, no pain. She improved performance sidelying and added hip abd to HEP with cues for proper trunk alignment and painfree range with clamshells, REports good quad and hip muscle tiring. Cues for R foot forward positioning during STS for decreased range irritation to R knee druing eccentric sitting improved no pain but good effort performance. Next tx: Remeasure ROM next tx and progress as tolerated. Physical Therapy Plan Frequency and Duration Frequency of Treatment 2x/Week Duration of treatment (weeks) 12 Plan of Care Start Date 05/12/24 Plan of Care End Date 08/11/24 Therapeutic Interventions Therapeutic Interventions Home Exercise Program,Manual Therapy,Patient/Caregiver Education,Self-Care/Home Management,Soft Tissue Mobilization,Taping, Therapeutic Activities, Therapeutic Exercises Modalities Cold Pack/Ice Massage,Electric Stimulation,Hot Packs Next Visit Focus/Plan Next Note Type Treatment Note Next Visit Plan Next tx: REmeasure ROM pre/ end tx, recheck HEP clamshell, sidelying hip abduction, STS, calf raises with eccentric calf stretch. If tolerating well progress step ups, and forward step progression for decreased pain descending stairs.
--- NOTE | 2024-06-05 08:58 | PT.OTN ---
Current Diagnoses Pain in left knee (06/05/24) Soft tissue disorder, unspecified (06/05/24) Difficulty in walking, not elsewhere classified (06/05/24) Weakness (06/05/24) Edema, unspecified (06/05/24) Presence of left artificial knee joint (06/05/24) Physical Therapy Treatment Note PT-OP-A Visit Information Start: 05/12/24 08:12 Freq: Status: Active Protocol: Document 06/05/24 08:18 SP (Rec: 06/05/24 09:03 SP [id number]) Out-Patient Physical Therapy Visit Information Visit Information Visit Type Treatment Note Visit Note 03/12 post eval Visit Start Time 08:18 Visit Stop Time 08:58 Visit Number 7 Number of AUTOMOTIVE SERVICE PORTER Visits 3 PT-OP-B Current Condition Start: 05/12/24 08:12 Freq: Status: Active Protocol: Document 05/22/24 11:17 SAK (Rec: 05/22/24 12:22 SAK [id number]) Current Condition History of Current Condition Onset Date 09/05/23 Current Complaints left knee pain History of Current Condition left TKA by Dr. Munoz, had PT for 3 months. Walked with a walker for a week or two, no longer using a device. Pain is constant, including with sleeping, getting in and out of cars. No N/T or giving way. Has some popping. States she feels like her kneecap is the worst part. Has tried wearing a brace with struts on the side, has tried several. Wears compression stockings due to old ankle injury. States PT after surgery tried KT tape 1x, otherwise. Pain is really bad if tries to do bicyce, and lifting leg while laying on her side. Does stretching of hamstrings and calves, not quads. First step in playing pickle ball feels challenging. At night pain is constant and dull, getting up from set sharp pain in back of knee. Can't do hamstring curl at gym due to pain. Wore thigh high compression stockings right after surgery. Future Testing and Treatments Planned Sees Dr. Munoz on anticipated right TKA; had it scheduled for April but cancelled due to left knee issues. PT-OP-C Subjective Start: 05/12/24 08:12 Freq: Status: Active Protocol: Document 06/05/24 08:18 SP (Rec: 06/05/24 09:03 SP [id number]) OP-PT Subjective Patient Comments Patient Comments Pt reports has been working on her HEP and able to lift clamshell with no pain range, will see how do before next tx AROM before reintroduce TB resistance. PT-OP-G Mobility & Gait Start: 05/12/24 08:12 Freq: Status: Active Protocol: Document 05/12/24 09:44 SAK (Rec: 05/12/24 15:19 SAK [id number]) OP Mobility Evaluation Transfers Sit to Stand indep but with dec weightbearing left LE Car Transfers painful Floor Transfers painful OP Gait Assessment Gait Gait Assistance Required: Independent Assistive Devices Assistive Device None Gait Deviations General Gait Pattern Antalgic Factors Limiting Gait Function Factors Limiting Gait Function Decreased Strength,Pain Stair Climbing Evaluation Evaluation Level of Assist On Stairs Independent Technique/Endurance Stair Climbing Technique Step to Step Stair Climbing Set # Repetitions (reps) 4 PT-OP-H Neuro Start: 05/12/24 08:12 Freq: Status: Active Protocol: Document 05/12/24 09:44 SAK (Rec: 05/12/24 15:19 SAK [id number]) Sensation Evaluation Gross Sensation Gross Sensation WNL PT-OP-J Posture/Palpation/Skin Start: 05/12/24 08:12 Freq: Status: Active Protocol: Document 05/12/24 09:44 SAK (Rec: 05/12/24 10:33 SAK [id number]) Posture Evaluation Position Standing Pelvis Posture Anteriorly Tilted Weight Distribution Weight Shifted Right Hip Posture (L) Internally Rotated,(R) Internally Rotated Knee Posture (R) Neutral,(L) Genu Valgus Patellar Posture (L) Laterally Tilted Ankle/Foot Posture (L) Pronated,(L) Forefoot Eversion Foot Arch (L) Medium Arch,(R) Medium Arch Palpation Assessment Location posterior knee Palpation Findings Edema,Tenderness knee joint line left Palpation Findings Edema,Tenderness Skin Assessment Edema Assessment left knee Edema Type Non-Pitting Edema Degree 2+ Edema Appearance Puffy Subjective Edema Description Tightness PT-OP-K Range of Motion Start: 05/12/24 08:12 Freq: Status: Active Protocol: Document 05/26/24 09:51 SP (Rec: 05/26/24 10:34 SP [id number]) Knee Goniometric Range of Motion Knee Left Knee ROM WFL No Flexion Active (degrees) 120 Extension Active (degrees) 1 PT-OP-M Strength Start: 05/12/24 08:12 Freq: Status: Active Protocol: Document 05/12/24 09:44 SAK (Rec: 05/12/24 15:19 SAK [id number]) Hip Strength Hip Manual Muscle Testing Left Flexion (L2) 4- Good- Extension (S1) 4- Good- Abduction 4- Good- Adduction 4- Good- External Rotation 4- Good- Internal Rotation 4 Good Right Flexion (L2) 4- Good- Extension (S1) 4- Good- Abduction 4- Good- Adduction 4 Good External Rotation 4- Good- Internal Rotation 4 Good Knee Strength Knee Manual Muscle Testing Left Flexion (S2) 4- Good- Extension (L3) 4 Good Right Flexion (S2) 4+ Good+ Extension (L3) 4+ Good+ Ankle/Foot Strength Ankle and Foot Manual Muscle Testing ev Dorsiflexion (L4) 5 Normal Plantarflexion (S1) 5 Normal PT-OP-Q Treatments Start: 05/12/24 08:12 Freq: Status: Active Protocol: Document 06/05/24 08:18 SP (Rec: 06/05/24 09:03 SP [id number]) Cardio Equipment Recumbent Bicycle Duration (Minutes) 6 Resistance 5>6 Seat Position 4 Other 44-47 RPMs Gym Equipment Shuttle Recovery Unilateral Squats Details cued keep heel down- cued glut drive, not lock knee Resistance 37# (navy) Reps/Time 20 reps Bilateral Squats Details good knee alignment, good stretch deep squat Resistance 62# (2 navy) Reps/Time x20 Shuttle Balance Red Details next tx Therapeutic Exercises Standing Exercises calf raises & eccentric stretch Standing Exercise Name HEP reviewed Side bilateral Equipment Used rail support, 6step Reps/Minutes x25, periodic hold calf stretch Comments cued slower pacing lowering feels good. knee mobility on step Standing Exercise Name reviewed Side left Equipment Used ft 2nd step, rail support Reps/Minutes x10 Comments tightness reduction in knee step-up Standing Exercise Name Fwd & lateral Side bilateral Equipment Used light 1 HR, 6 step Reps/Minutes x10 reps, reports little anterior knee tension Comments cued knee with and behind toes , heel glut drive- good mid quad/glut tiring sidestepping Standing Exercise Name fwd/bwd/lateral stepping- HEP reviewed Side bilateral Resistance L2 TB at ankles Reps/Minutes 20 ft x2 laps each Comments tall posture midline, DF trail LE clearance Neuro Re-Education Treatment Balance Activities hurdles Surface 6 hurdles, floor>foam stones Reps/Duration 4 laps Comments cues for allow heel stay down into WB midstance, elongated posture with core facilitation and slower pacing improved midline stability. cued higher stepping on LLE for eduarda clearance, improved reduction occasional circumduction. PT-OP-R Modalities Start: 05/12/24 08:12 Freq: Status: Active Protocol: Document 05/22/24 11:17 SAK (Rec: 05/22/24 12:22 SAK [id number]) Electric Stimulation Electric Stimulation Interferential Current (IFC) Body Location left knee Intensity 18 Target/Sweep Sweep Combined With Heat/Cold Cold Pack Comments large ice pack on top and small under knee PT-OP-T Assessment and Plan Start: 05/12/24 08:12 Freq: Status: Active Protocol: Document 06/05/24 08:18 SP (Rec: 06/05/24 09:03 SP [id number]) Physical Therapy Assessment Goals One Impairment left knee pain as high as 7/10 limiting activities Short Term Goal (STG) Patient will be able to move sit to stand and sleep with minimal to no left knee pain STG Duration 06/17/24 Senior Business Process Analyst Goal (LTG) Patient will be able to resume taking walks and playing pickleball with minimal to no pain LTG Duration 08/11/24 Three Impairment LEFS(lower extremity functional scale) 38% Impairment Loss of core stability with MMT of LE's and hip AB is 3/5 bilaterally. Short Term Goal (STG) Improve LEFS score to at least 55% as measure of improved activity tolerance and left knee function STG Duration 06/17/24 Senior Business Process Analyst Goal (LTG) Improve LEFS score to at least 75% as measure of improved activity tolerance and left knee function. Two Impairment weakness left knee and hip, dec quad flexibility left Impairment SHELLEY score is 32/100, (16/50), 20-39% impaired of score 20-39 Short Term Goal (STG) Patient will be instructed in individualized, progressive HEP for the purposes of strengthening and flexibility. STG Duration 06/17/24 Fci Goal (LTG) Patient will be independent and compliant with HEP and test 5/5 muscle strength left knee and hip and flexibility left quadriceps WNL. LTG Duration 08/11/24 Assessment Summary Assessment Pt good tolerance to exercises today, cues for maintain heel down (inhibit calf raise compensations) for quad and glut facilitation and ankle and knee mobility during shuttle recovery, step ups and eduarda stepping. Improved tolerance ROM into flexion during shuttle recovery and incorporating at gym. Physical Therapy Plan Frequency and Duration Frequency of Treatment 2x/Week Duration of treatment (weeks) 12 Plan of Care Start Date 05/12/24 Plan of Care End Date 08/11/24 Therapeutic Interventions Therapeutic Interventions Home Exercise Program,Manual Therapy,Patient/Caregiver Education,Self-Care/Home Management,Soft Tissue Mobilization,Taping, Therapeutic Activities, Therapeutic Exercises Modalities Cold Pack/Ice Massage,Electric Stimulation,Hot Packs Next Visit Focus/Plan Next Note Type Treatment Note Next Visit Plan Ask response to uneven hurdles , incorporate shuttle balance, sport cord future tx Next tx: REmeasure ROM pre/ end tx, recheck HEP clamshell, sidelying hip abduction, STS, calf raises with eccentric calf stretch. If tolerating well progress step ups, and forward step progression for decreased pain descending stairs.
--- NOTE | 2024-06-11 08:58 | PT.OTN ---
Current Diagnoses Pain in left knee (06/11/24) Soft tissue disorder, unspecified (06/11/24) Difficulty in walking, not elsewhere classified (06/11/24) Weakness (06/11/24) Edema, unspecified (06/11/24) Presence of left artificial knee joint (06/11/24) Physical Therapy Treatment Note PT-OP-A Visit Information Start: 05/12/24 08:12 Freq: Status: Active Protocol: Document 06/11/24 08:18 SP (Rec: 06/11/24 09:03 SP [id number]) Out-Patient Physical Therapy Visit Information Visit Information Visit Type Treatment Note Visit Note 04/12 post eval Visit Start Time 08:18 Visit Stop Time 08:58 Visit Number 8 Number of PRODUCT SAFETY MANAGER Visits 4 PT-OP-B Current Condition Start: 05/12/24 08:12 Freq: Status: Active Protocol: Document 05/22/24 11:17 SAK (Rec: 05/22/24 12:22 SAK [id number]) Current Condition History of Current Condition Onset Date 09/05/23 Current Complaints left knee pain History of Current Condition left TKA by Dr. Munoz, had PT for 3 months. Walked with a walker for a week or two, no longer using a device. Pain is constant, including with sleeping, getting in and out of cars. No N/T or giving way. Has some popping. States she feels like her kneecap is the worst part. Has tried wearing a brace with struts on the side, has tried several. Wears compression stockings due to old ankle injury. States PT after surgery tried KT tape 1x, otherwise. Pain is really bad if tries to do bicyce, and lifting leg while laying on her side. Does stretching of hamstrings and calves, not quads. First step in playing pickle ball feels challenging. At night pain is constant and dull, getting up from set sharp pain in back of knee. Can't do hamstring curl at gym due to pain. Wore thigh high compression stockings right after surgery. Future Testing and Treatments Planned Sees Dr. Munoz on anticipated right TKA; had it scheduled for April but cancelled due to left knee issues. PT-OP-C Subjective Start: 05/12/24 08:12 Freq: Status: Active Protocol: Document 06/11/24 08:18 SP (Rec: 06/11/24 09:03 SP [id number]) OP-PT Subjective Patient Comments Patient Comments Pt reports was feeling pretty good and played pickleball 2 days in row and L knee swelled little had pain around knee cap all the way around med/lat /inferior/superior. Has a med Meloxican to help swelling and jt pain relief. Utilizes CP and elevation for support. PT-OP-G Mobility & Gait Start: 05/12/24 08:12 Freq: Status: Active Protocol: Document 05/12/24 09:44 SAK (Rec: 05/12/24 15:19 SAK [id number]) OP Mobility Evaluation Transfers Sit to Stand indep but with dec weightbearing left LE Car Transfers painful Floor Transfers painful OP Gait Assessment Gait Gait Assistance Required: Independent Assistive Devices Assistive Device None Gait Deviations General Gait Pattern Antalgic Factors Limiting Gait Function Factors Limiting Gait Function Decreased Strength,Pain Stair Climbing Evaluation Evaluation Level of Assist On Stairs Independent Technique/Endurance Stair Climbing Technique Step to Step Stair Climbing Set # Repetitions (reps) 4 PT-OP-H Neuro Start: 05/12/24 08:12 Freq: Status: Active Protocol: Document 05/12/24 09:44 SAK (Rec: 05/12/24 15:19 SAK [id number]) Sensation Evaluation Gross Sensation Gross Sensation WNL PT-OP-J Posture/Palpation/Skin Start: 05/12/24 08:12 Freq: Status: Active Protocol: Document 05/12/24 09:44 SAK (Rec: 05/12/24 10:33 SAK [id number]) Posture Evaluation Position Standing Pelvis Posture Anteriorly Tilted Weight Distribution Weight Shifted Right Hip Posture (L) Internally Rotated,(R) Internally Rotated Knee Posture (R) Neutral,(L) Genu Valgus Patellar Posture (L) Laterally Tilted Ankle/Foot Posture (L) Pronated,(L) Forefoot Eversion Foot Arch (L) Medium Arch,(R) Medium Arch Palpation Assessment Location posterior knee Palpation Findings Edema,Tenderness knee joint line left Palpation Findings Edema,Tenderness Skin Assessment Edema Assessment left knee Edema Type Non-Pitting Edema Degree 2+ Edema Appearance Puffy Subjective Edema Description Tightness PT-OP-K Range of Motion Start: 05/12/24 08:12 Freq: Status: Active Protocol: Document 05/26/24 09:51 SP (Rec: 05/26/24 10:34 SP [id number]) Knee Goniometric Range of Motion Knee Left Knee ROM WFL No Flexion Active (degrees) 120 Extension Active (degrees) 1 PT-OP-M Strength Start: 05/12/24 08:12 Freq: Status: Active Protocol: Document 05/12/24 09:44 SAK (Rec: 05/12/24 15:19 SAK [id number]) Hip Strength Hip Manual Muscle Testing Left Flexion (L2) 4- Good- Extension (S1) 4- Good- Abduction 4- Good- Adduction 4- Good- External Rotation 4- Good- Internal Rotation 4 Good Right Flexion (L2) 4- Good- Extension (S1) 4- Good- Abduction 4- Good- Adduction 4 Good External Rotation 4- Good- Internal Rotation 4 Good Knee Strength Knee Manual Muscle Testing Left Flexion (S2) 4- Good- Extension (L3) 4 Good Right Flexion (S2) 4+ Good+ Extension (L3) 4+ Good+ Ankle/Foot Strength Ankle and Foot Manual Muscle Testing ev Dorsiflexion (L4) 5 Normal Plantarflexion (S1) 5 Normal PT-OP-Q Treatments Start: 05/12/24 08:12 Freq: Status: Active Protocol: Document 06/11/24 08:18 SP (Rec: 06/11/24 09:03 SP [id number]) Cardio Equipment Recumbent Bicycle Duration (Minutes) 6 Resistance 6 Seat Position 4 Other 44-47 RPMs, 1.66 miles Gym Equipment Shuttle Recovery Unilateral Squats Details improved knee alignment and heel down Resistance 37# (navy)> 50# (1 navy 1 teal ) Reps/Time 20 reps approx 90 deg flexion Bilateral Squats Details good knee alignment, good stretch deep squat Resistance 62# (2 navy) Reps/Time x20 Shuttle Balance Red Details WBOS & stride stance on 4s: Comments F/B wt shift HTs Sport Cord Red Exercise Details future tx Therapeutic Exercises Sitting Exercises LAQ Sitting Exercise Name added to HEP declined HO Side bilateral Resistance TB #2> #3 cahto green (under 1 foot over ankle other) Reps/Minutes 2x10 each resistance Comments Good Standing Exercises HS curl Standing Exercise Name added to HEP-declined HO Side bilateral Resistance Tb #2 teal (under 1 foot, around ankle other) Equipment Used rail support Reps/Minutes 2x10 each Comments cued tall posture, knees parallel calf raises & eccentric stretch Standing Exercise Name HEP reviewed Side bilateral Equipment Used rail support, 6step Reps/Minutes x20, periodic hold calf stretch Comments cued slower pacing lowering feels good. step down Standing Exercise Name trialed fwd step down Equipment Used 4step >1 text book Reps/Minutes 2 reps each Comments causes irritation anterior L knee - stopped- HOLD 05/26 knee mobility on step Standing Exercise Name reviewed Side left Equipment Used ft 2nd step, rail support Reps/Minutes x10 Comments tightness reduction in knee step-up Standing Exercise Name Fwd & lateral Side bilateral Equipment Used 6 light touch needed for LLE, PRN RLE Reps/Minutes x10 reps, reports little anterior L knee tension Comments cued knee with and behind toes , heel glut drive- good mid quad/glut tiring sidestepping Standing Exercise Name fwd/bwd/lateral stepping- HEP reviewed Side bilateral Resistance L2 TB at ankles Reps/Minutes 20 ft x2 laps each Comments tall posture midline, DF trail LE clearance quad stretch Reps/Minutes 2x30 Comments chair; stretch not pain gastroc stretch Reps/Minutes 2x30 Comments foot on wall PT-OP-R Modalities Start: 05/12/24 08:12 Freq: Status: Active Protocol: Document 05/22/24 11:17 SAK (Rec: 05/22/24 12:22 SAK [id number]) Electric Stimulation Electric Stimulation Interferential Current (IFC) Body Location left knee Intensity 18 Target/Sweep Sweep Combined With Heat/Cold Cold Pack Comments large ice pack on top and small under knee PT-OP-T Assessment and Plan Start: 05/12/24 08:12 Freq: Status: Active Protocol: Document 06/11/24 08:18 SP (Rec: 06/11/24 09:03 SP [id number]) Physical Therapy Assessment Goals One Impairment left knee pain as high as 7/10 limiting activities Short Term Goal (STG) Patient will be able to move sit to stand and sleep with minimal to no left knee pain STG Duration 06/17/24 Enterprise Architect Manager Goal (LTG) Patient will be able to resume taking walks and playing pickleball with minimal to no pain LTG Duration 08/11/24 Three Impairment LEFS(lower extremity functional scale) 38% Impairment Loss of core stability with MMT of LE's and hip AB is 3/5 bilaterally. Short Term Goal (STG) Improve LEFS score to at least 55% as measure of improved activity tolerance and left knee function STG Duration 06/17/24 Group Home Goal (LTG) Improve LEFS score to at least 75% as measure of improved activity tolerance and left knee function. Two Impairment weakness left knee and hip, dec quad flexibility left Impairment SHELLEY score is 32/100, (16/50), 20-39% impaired of score 20-39 Short Term Goal (STG) Patient will be instructed in individualized, progressive HEP for the purposes of strengthening and flexibility. STG Duration 06/17/24 Group Home Goal (LTG) Patient will be independent and compliant with HEP and test 5/5 muscle strength left knee and hip and flexibility left quadriceps WNL. LTG Duration 08/11/24 Assessment Summary Assessment Pt good feedback quad and hamstring during initiated resisted LAQ and standing resisted curl for progress strengthening, no reports of pain but good muscle tiring. Good feedback tolerance increased resistance on shuttle recovery. Reported anterior knee irritation during step ups today on L, limited reps. Physical Therapy Plan Frequency and Duration Frequency of Treatment 2x/Week Duration of treatment (weeks) 12 Plan of Care Start Date 05/12/24 Plan of Care End Date 08/11/24 Therapeutic Interventions Therapeutic Interventions Home Exercise Program,Manual Therapy,Patient/Caregiver Education,Self-Care/Home Management,Soft Tissue Mobilization,Taping, Therapeutic Activities, Therapeutic Exercises Modalities Cold Pack/Ice Massage,Electric Stimulation,Hot Packs Next Visit Focus/Plan Next Note Type Treatment Note Next Visit Plan Ask response resisted LAQ & HS curl Trial pickle ball drills for return PLOF> Next tx: REmeasure ROM pre/ end tx, recheck HEP clamshell, sidelying hip abduction, STS, calf raises with eccentric calf stretch. If tolerating well progress step ups, and forward step progression for decreased pain descending stairs.
--- NOTE | 2024-06-24 13:15 | PT.OTN ---
Current Diagnoses Pain in left knee (06/24/24) Soft tissue disorder, unspecified (06/24/24) Difficulty in walking, not elsewhere classified (06/24/24) Weakness (06/24/24) Edema, unspecified (06/24/24) Presence of left artificial knee joint (06/24/24) Physical Therapy Treatment Note PT-OP-A Visit Information Start: 05/12/24 08:12 Freq: Status: Active Protocol: Document 06/24/24 08:55 SAK (Rec: 06/24/24 09:49 [facility] [id number]) Out-Patient Physical Therapy Visit Information Visit Information Visit Type Treatment Note Visit Note 05/13 post eval Visit Start Time 09:02 Visit Stop Time 09:45 Visit Number 9 Number of DIGITAL MEDIA PLANNER Visits 0 PT-OP-B Current Condition Start: 05/12/24 08:12 Freq: Status: Active Protocol: Document 06/24/24 08:55 SAK (Rec: 06/24/24 09:49 SAK [id number]) Current Condition History of Current Condition Onset Date 09/05/23 Current Complaints left knee pain History of Current Condition left TKA by Dr. Munoz, had PT for 3 months. Walked with a walker for a week or two, no longer using a device. Pain is constant, including with sleeping, getting in and out of cars. No N/T or giving way. Has some popping. States she feels like her kneecap is the worst part. Has tried wearing a brace with struts on the side, has tried several. Wears compression stockings due to old ankle injury. States PT after surgery tried KT tape 1x, otherwise. Pain is really bad if tries to do bicyce, and lifting leg while laying on her side. Does stretching of hamstrings and calves, not quads. First step in playing pickle ball feels challenging. At night pain is constant and dull, getting up from set sharp pain in back of knee. Can't do hamstring curl at gym due to pain. Wore thigh high compression stockings right after surgery. Future Testing and Treatments Planned Sees Dr. Munoz on anticipated right TKA; had it scheduled for April but cancelled due to left knee issues. PT-OP-C Subjective Start: 05/12/24 08:12 Freq: Status: Active Protocol: Document 06/24/24 08:55 SAK (Rec: 06/24/24 09:49 [facility] [id number]) OP-PT Subjective Patient Comments Patient Comments Reports 50% reduction in pain. Saw Allison Wiseman, had x -ray of left knee, staes the kneecap has more polymer so it fits very tight, so when she swells it makes it tighter, more pain. Wearing thigh high compression recently when on plane. starting to feel a sense of normalcy, doing self massage and dragon balm, ice. Got a pair of compression tights and wears those pickle balls. PT-OP-G Mobility & Gait Start: 05/12/24 08:12 Freq: Status: Active Protocol: Document 05/12/24 09:44 [facility] (Rec: 05/12/24 15:19 [facility] [id number]) OP Mobility Evaluation Transfers Sit to Stand indep but with dec weightbearing left LE Car Transfers painful Floor Transfers painful OP Gait Assessment Gait Gait Assistance Required: Independent Assistive Devices Assistive Device None Gait Deviations General Gait Pattern Antalgic Factors Limiting Gait Function Factors Limiting Gait Function Decreased Strength,Pain Stair Climbing Evaluation Evaluation Level of Assist On Stairs Independent Technique/Endurance Stair Climbing Technique Step to Step Stair Climbing Set # Repetitions (reps) 4 PT-OP-H Neuro Start: 05/12/24 08:12 Freq: Status: Active Protocol: Document 05/12/24 09:44 [facility] (Rec: 05/12/24 15:19 [facility] [id number]) Sensation Evaluation Gross Sensation Gross Sensation WNL PT-OP-J Posture/Palpation/Skin Start: 05/12/24 08:12 Freq: Status: Active Protocol: Document 05/12/24 09:44 [facility] (Rec: 05/12/24 10:33 [facility] [id number]) Posture Evaluation Position Standing Pelvis Posture Anteriorly Tilted Weight Distribution Weight Shifted Right Hip Posture (L) Internally Rotated,(R) Internally Rotated Knee Posture (R) Neutral,(L) Genu Valgus Patellar Posture (L) Laterally Tilted Ankle/Foot Posture (L) Pronated,(L) Forefoot Eversion Foot Arch (L) Medium Arch,(R) Medium Arch Palpation Assessment Location posterior knee Palpation Findings Edema,Tenderness knee joint line left Palpation Findings Edema,Tenderness Skin Assessment Edema Assessment left knee Edema Type Non-Pitting Edema Degree 2+ Edema Appearance Puffy Subjective Edema Description Tightness PT-OP-K Range of Motion Start: 05/12/24 08:12 Freq: Status: Active Protocol: Document 05/26/24 09:51 SP (Rec: 05/26/24 10:34 SP [id number]) Knee Goniometric Range of Motion Knee Left Knee ROM WFL No Flexion Active (degrees) 120 Extension Active (degrees) 1 PT-OP-M Strength Start: 05/12/24 08:12 Freq: Status: Active Protocol: Document 05/12/24 09:44 SAK (Rec: 05/12/24 15:19 SAK [id number]) Hip Strength Hip Manual Muscle Testing Left Flexion (L2) 4- Good- Extension (S1) 4- Good- Abduction 4- Good- Adduction 4- Good- External Rotation 4- Good- Internal Rotation 4 Good Right Flexion (L2) 4- Good- Extension (S1) 4- Good- Abduction 4- Good- Adduction 4 Good External Rotation 4- Good- Internal Rotation 4 Good Knee Strength Knee Manual Muscle Testing Left Flexion (S2) 4- Good- Extension (L3) 4 Good Right Flexion (S2) 4+ Good+ Extension (L3) 4+ Good+ Ankle/Foot Strength Ankle and Foot Manual Muscle Testing ev Dorsiflexion (L4) 5 Normal Plantarflexion (S1) 5 Normal PT-OP-Q Treatments Start: 05/12/24 08:12 Freq: Status: Active Protocol: Document 06/24/24 08:55 SAK (Rec: 06/24/24 09:49 SAK [id number]) Cardio Equipment Recumbent Bicycle Duration (Minutes) 6 Resistance 6 Seat Position 4 Other 44-47 RPMs, 1.66 miles Gym Equipment Shuttle Balance Red Details WBOS & stride stance on 4s, side/side Comments balance and wt shifts Therapeutic Exercises Standing Exercises HS curl Standing Exercise Name HEP calf raises & eccentric stretch Standing Exercise Name HEP step down Standing Exercise Name HEP knee mobility on step Standing Exercise Name HEP step-up Standing Exercise Name HEP Manual Therapy Treatment Taping left knee Treatment Focus patallar stabililzation Type of Tape Kinesio Tape Skin Inspection intact Comments skin cleaned with rubbing alcohol, Biofreeze applied. 2 fan strips posterior left knee paper off tension, Y strip for patellar tracking ( base medial) 75% tension , 2 Y strips anterior knee one starting sup to patella and tails along med and lat patella, one starting patellar tuberosity and tails along med and lat patella into distal thigh both at 50% tension. Posterior knee 2 fan strips for edema reduction crossed pattern. PT-OP-R Modalities Start: 05/12/24 08:12 Freq: Status: Active Protocol: Document 05/22/24 11:17 SAK (Rec: 05/22/24 12:22 SAK [id number]) Electric Stimulation Electric Stimulation Interferential Current (IFC) Body Location left knee Intensity 18 Target/Sweep Sweep Combined With Heat/Cold Cold Pack Comments large ice pack on top and small under knee PT-OP-T Assessment and Plan Start: 05/12/24 08:12 Freq: Status: Active Protocol: Document 06/24/24 08:55 SAK (Rec: 06/24/24 09:49 SAK [id number]) Physical Therapy Assessment Goals One Impairment left knee pain as high as 7/10 limiting activities Short Term Goal (STG) Patient will be able to move sit to stand and sleep with minimal to no left knee pain STG Duration 06/17/24 Welder Experimental Goal (LTG) Patient will be able to resume taking walks and playing pickleball with minimal to no pain LTG Duration 08/11/24 Three Impairment LEFS(lower extremity functional scale) 38% Impairment Loss of core stability with MMT of LE's and hip AB is 3/5 bilaterally. Short Term Goal (STG) Improve LEFS score to at least 55% as measure of improved activity tolerance and left knee function 06/23/24: score 69%, goal met STG Duration 06/17/24 Custodial Goal (LTG) Improve LEFS score to at least 75% as measure of improved activity tolerance and left knee function. 06/23/24: goal progress 69% LTG Duration 08/11/24 Two Impairment weakness left knee and hip, dec quad flexibility left Short Term Goal (STG) Patient will be instructed in individualized, progressive HEP for the purposes of strengthening and flexibility. 06/23/24: goal met STG Duration goal met Welder Experimental Goal (LTG) Patient will be independent and compliant with HEP and test 5/5 muscle strength left knee and hip and flexibility left quadriceps WNL. LTG Duration 08/11/24 Progress Towards Goals Progress Towards Goals Progressing Toward Goals Assessment Summary Assessment Good goal progress toward all above goals. Patient highly motivated, compliant with most exercises. Reporting tightness and pain in knee but not nearly to same extent. Stressed benefits of wearing compression tights or stockings more often. KT tape to left knee today to facil medial patellar glide and decreased edema. Shuttle balance with good tolerance reporting felt helpful, using all muscles Physical Therapy Plan Frequency and Duration Frequency of Treatment 2x/Week Duration of treatment (weeks) 12 Plan of Care Start Date 05/12/24 Plan of Care End Date 08/11/24 Therapeutic Interventions Therapeutic Interventions Home Exercise Program,Manual Therapy,Patient/Caregiver Education,Self-Care/Home Management,Soft Tissue Mobilization,Taping, Therapeutic Activities, Therapeutic Exercises Modalities Cold Pack/Ice Massage,Electric Stimulation,Hot Packs Next Visit Focus/Plan Next Note Type Treatment Note Next Visit Plan Review clamshell and sidelying hip abduction for correct performance, progress step ups and gait on stairs as tolerated. Consider trial prone quad stretch. Encourage wearing of compression tights for edema reduction.
--- NOTE | 2024-06-27 08:50 | PT.OTN ---
Current Diagnoses Pain in left knee (06/27/24) Soft tissue disorder, unspecified (06/27/24) Difficulty in walking, not elsewhere classified (06/27/24) Weakness (06/27/24) Edema, unspecified (06/27/24) Presence of left artificial knee joint (06/27/24) Physical Therapy Treatment Note PT-OP-A Visit Information Start: 05/12/24 08:12 Freq: Status: Active Protocol: Document 06/27/24 08:20 SP (Rec: 06/27/24 09:20 SP [id number]) Out-Patient Physical Therapy Visit Information Visit Information Visit Type Treatment Note Visit Note 10/13 post eval Visit Start Time 08:20 Visit Stop Time 08:50 Visit Number 10 (10/13 after PN) Number of WOOD TREATING INSPECTOR Visits 1 PT-OP-B Current Condition Start: 05/12/24 08:12 Freq: Status: Active Protocol: Document 06/24/24 08:55 SAK (Rec: 06/24/24 09:49 SAK [id number]) Current Condition History of Current Condition Onset Date 09/05/23 Current Complaints left knee pain History of Current Condition left TKA by Dr. Munoz, had PT for 3 months. Walked with a walker for a week or two, no longer using a device. Pain is constant, including with sleeping, getting in and out of cars. No N/T or giving way. Has some popping. States she feels like her kneecap is the worst part. Has tried wearing a brace with struts on the side, has tried several. Wears compression stockings due to old ankle injury. States PT after surgery tried KT tape 1x, otherwise. Pain is really bad if tries to do bicyce, and lifting leg while laying on her side. Does stretching of hamstrings and calves, not quads. First step in playing pickle ball feels challenging. At night pain is constant and dull, getting up from set sharp pain in back of knee. Can't do hamstring curl at gym due to pain. Wore thigh high compression stockings right after surgery. Future Testing and Treatments Planned Sees Dr. Munoz on anticipated right TKA; had it scheduled for April but cancelled due to left knee issues. PT-OP-C Subjective Start: 05/12/24 08:12 Freq: Status: Active Protocol: Document 06/27/24 08:20 SP (Rec: 06/27/24 09:20 SP [id number]) OP-PT Subjective Patient Comments Patient Comments Pt reports Ktaping helping with pain and swelling control in B knees, not need to retape today taping last tx still doing well. She was able to kneel on both knees recently with only pain on patella but not within whole knee, pleased with gain in flexibility. She states knees till hurt pivot turns playing pickleball, trying to move feet vs twist knees. Pt reports needs leave early due to another appt. Patient Reported Progress Improving PT-OP-G Mobility & Gait Start: 05/12/24 08:12 Freq: Status: Active Protocol: Document 05/12/24 09:44 SAK (Rec: 05/12/24 15:19 SAK [id number]) OP Mobility Evaluation Transfers Sit to Stand indep but with dec weightbearing left LE Car Transfers painful Floor Transfers painful OP Gait Assessment Gait Gait Assistance Required: Independent Assistive Devices Assistive Device None Gait Deviations General Gait Pattern Antalgic Factors Limiting Gait Function Factors Limiting Gait Function Decreased Strength,Pain Stair Climbing Evaluation Evaluation Level of Assist On Stairs Independent Technique/Endurance Stair Climbing Technique Step to Step Stair Climbing Set # Repetitions (reps) 4 PT-OP-H Neuro Start: 05/12/24 08:12 Freq: Status: Active Protocol: Document 05/12/24 09:44 SAK (Rec: 05/12/24 15:19 SAK [id number]) Sensation Evaluation Gross Sensation Gross Sensation WNL PT-OP-J Posture/Palpation/Skin Start: 05/12/24 08:12 Freq: Status: Active Protocol: Document 05/12/24 09:44 SAK (Rec: 05/12/24 10:33 SAK [id number]) Posture Evaluation Position Standing Pelvis Posture Anteriorly Tilted Weight Distribution Weight Shifted Right Hip Posture (L) Internally Rotated,(R) Internally Rotated Knee Posture (R) Neutral,(L) Genu Valgus Patellar Posture (L) Laterally Tilted Ankle/Foot Posture (L) Pronated,(L) Forefoot Eversion Foot Arch (L) Medium Arch,(R) Medium Arch Palpation Assessment Location posterior knee Palpation Findings Edema,Tenderness knee joint line left Palpation Findings Edema,Tenderness Skin Assessment Edema Assessment left knee Edema Type Non-Pitting Edema Degree 2+ Edema Appearance Puffy Subjective Edema Description Tightness PT-OP-K Range of Motion Start: 05/12/24 08:12 Freq: Status: Active Protocol: Document 05/26/24 09:51 SP (Rec: 05/26/24 10:34 SP [id number]) Knee Goniometric Range of Motion Knee Left Knee ROM WFL No Flexion Active (degrees) 120 Extension Active (degrees) 1 PT-OP-M Strength Start: 05/12/24 08:12 Freq: Status: Active Protocol: Document 05/12/24 09:44 SAK (Rec: 05/12/24 15:19 SAK [id number]) Hip Strength Hip Manual Muscle Testing Left Flexion (L2) 4- Good- Extension (S1) 4- Good- Abduction 4- Good- Adduction 4- Good- External Rotation 4- Good- Internal Rotation 4 Good Right Flexion (L2) 4- Good- Extension (S1) 4- Good- Abduction 4- Good- Adduction 4 Good External Rotation 4- Good- Internal Rotation 4 Good Knee Strength Knee Manual Muscle Testing Left Flexion (S2) 4- Good- Extension (L3) 4 Good Right Flexion (S2) 4+ Good+ Extension (L3) 4+ Good+ Ankle/Foot Strength Ankle and Foot Manual Muscle Testing ev Dorsiflexion (L4) 5 Normal Plantarflexion (S1) 5 Normal PT-OP-Q Treatments Start: 05/12/24 08:12 Freq: Status: Active Protocol: Document 06/27/24 08:20 SP (Rec: 06/27/24 09:20 SP [id number]) Cardio Equipment Recumbent Bicycle Duration (Minutes) 5 Resistance 6 Seat Position 4 Other 44-47 RPMs Therapeutic Exercises Supine Exercises Eliazar Stretch Supine Exercise Name Reviewed self quad and hip flexor stretcj Side left Reps/Minutes 30 SH Comments tension over distal quad, end time starts pull on patellar tendon Prone Exercises prone quad stretch Prone Exercise Name added to HEP, declined HO Side left Equipment Used strap on foot up over shoulder Reps/Minutes 30 SH Comments good feedback quad stretch, no pain Sidelying Exercises hip abduction Sidelying Exercise Name trialed in PT- added to HEP /c HO Side left Resistance AROM> TB #1 Equipment Used bottom leg bent Reps/Minutes 2x10 Comments cued stacked alignment, no roll back, leg ext clamshell Sidelying Exercise Name reviewed HEP Side left Resistance AROM>TB#1 Reps/Minutes 2x10 Comments cued painfree range- was going to high causing pain- better pnfree 05/30 Sitting Exercises SL STS Sitting Exercise Name trialed in PT 06/27 Equipment Used 21 table, without UE support Reps/Minutes attempted 1 rep Comments unable ascend into stand due to anterior knee pain Standing Exercises step down Standing Exercise Name HEP Side bilateral Resistance R ok 4, L 1-2 tolerated Equipment Used L: 4step 1 rep pain>1 & 2 text book pnfree Reps/Minutes 5 reps each Comments no pain with proper knee/trunk alignment step-up Standing Exercise Name HEP- single leg repeated bottom step Side bilateral Equipment Used 6 step, no UE support required Reps/Minutes 10 reps each Comments cued heel press glut fac into standing TKE decreased tension L knee pat ten Manual Therapy Treatment Consent Patient gave verbal consent for manual Yes treatment Soft Tissue Mobilization L patellar tendon Body Location Patellar tendon & distal quad sup patella: declined HO for home visual Mobilization Type Instrument Assisted Comments manual /c ed self use of tool friction patellar tendon into flexion AROM more than extension positioning. Improved less tension response Joint Mobilizations L knee Joint patella, Tibfemoral Direction med/lat/ sup/inf; A<>P Grade II Body Position Hooklying Comments pnfree response gentle glides, PT-OP-R Modalities Start: 05/12/24 08:12 Freq: Status: Active Protocol: Document 05/22/24 11:17 SAK (Rec: 05/22/24 12:22 SAK [id number]) Electric Stimulation Electric Stimulation Interferential Current (IFC) Body Location left knee Intensity 18 Target/Sweep Sweep Combined With Heat/Cold Cold Pack Comments large ice pack on top and small under knee PT-OP-T Assessment and Plan Start: 05/12/24 08:12 Freq: Status: Active Protocol: Document 06/27/24 08:20 SP (Rec: 06/27/24 09:20 SP [id number]) Physical Therapy Assessment Goals One Impairment left knee pain as high as 7/10 limiting activities Short Term Goal (STG) Patient will be able to move sit to stand and sleep with minimal to no left knee pain STG Duration 06/17/24 Stand Grinder Goal (LTG) Patient will be able to resume taking walks and playing pickleball with minimal to no pain LTG Duration 08/11/24 Three Impairment LEFS(lower extremity functional scale) 38% Impairment Loss of core stability with MMT of LE's and hip AB is 3/5 bilaterally. Short Term Goal (STG) Improve LEFS score to at least 55% as measure of improved activity tolerance and left knee function 06/23/24: score 69%, goal met STG Duration 06/17/24 Stand Grinder Goal (LTG) Improve LEFS score to at least 75% as measure of improved activity tolerance and left knee function. 06/23/24: goal progress 69% LTG Duration 08/11/24 Two Impairment weakness left knee and hip, dec quad flexibility left Impairment SHELLEY score is 32/100, (16/50), 20-39% impaired of score 20-39 Short Term Goal (STG) Patient will be instructed in individualized, progressive HEP for the purposes of strengthening and flexibility. 06/23/24: goal met STG Duration goal met Detention Goal (LTG) Patient will be independent and compliant with HEP and test 5/5 muscle strength left knee and hip and flexibility left quadriceps WNL. 06/27/24: added self tool patellar tendon STMs, prone quad stretch /c strap L>R LTG Duration 08/11/24 progressing 06/27/24 Assessment Summary Assessment Pt good feedback response to manual focus at distal quad and patellar tendon today L knee with reports reduced tension and pain reduction into flexion during ther ex, time needed find tolerant height unsupported during SL repeated 6 step ups and 1-2 step down to progress ROM and mechanics to allow decreased pain stair mgt. She was able to progress adding resistance to hip ER and ABD strengthening today without pain for progression strengthening. Physical Therapy Plan Frequency and Duration Frequency of Treatment 2x/Week Duration of treatment (weeks) 12 Plan of Care Start Date 05/12/24 Plan of Care End Date 08/11/24 Therapeutic Interventions Therapeutic Interventions Home Exercise Program,Manual Therapy,Patient/Caregiver Education,Self-Care/Home Management,Soft Tissue Mobilization,Taping, Therapeutic Activities, Therapeutic Exercises Modalities Cold Pack/Ice Massage,Electric Stimulation,Hot Packs Next Visit Focus/Plan Next Note Type Treatment Note Next Visit Plan Assess response to resistance clamshell & hip abd and repeated step ups unsupported. POC: progress descending gait on stairs as tolerated. Consider trial prone quad stretch. Encourage wearing of compression tights for edema reduction.
--- NOTE | 2024-06-30 09:43 | PT.OTN ---
Current Diagnoses Pain in left knee (06/30/24) Soft tissue disorder, unspecified (06/30/24) Difficulty in walking, not elsewhere classified (06/30/24) Weakness (06/30/24) Edema, unspecified (06/30/24) Presence of left artificial knee joint (06/30/24) Physical Therapy Treatment Note PT-OP-A Visit Information Start: 05/12/24 08:12 Freq: Status: Active Protocol: Document 06/30/24 09:03 SP (Rec: 06/30/24 09:48 SP [id number]) Out-Patient Physical Therapy Visit Information Visit Information Visit Type Treatment Note Visit Note 11/10 post eval Visit Start Time 09:03 Visit Stop Time 09:43 Visit Number 10 (11/10 after PN) Number of RESIDENTIAL CARE OFFICER Visits 2 PT-OP-B Current Condition Start: 05/12/24 08:12 Freq: Status: Active Protocol: Document 06/24/24 08:55 SAK (Rec: 06/24/24 09:49 SAK [id number]) Current Condition History of Current Condition Onset Date 09/05/23 Current Complaints left knee pain History of Current Condition left TKA by Dr. Munoz, had PT for 3 months. Walked with a walker for a week or two, no longer using a device. Pain is constant, including with sleeping, getting in and out of cars. No N/T or giving way. Has some popping. States she feels like her kneecap is the worst part. Has tried wearing a brace with struts on the side, has tried several. Wears compression stockings due to old ankle injury. States PT after surgery tried KT tape 1x, otherwise. Pain is really bad if tries to do bicyce, and lifting leg while laying on her side. Does stretching of hamstrings and calves, not quads. First step in playing pickle ball feels challenging. At night pain is constant and dull, getting up from set sharp pain in back of knee. Can't do hamstring curl at gym due to pain. Wore thigh high compression stockings right after surgery. Future Testing and Treatments Planned Sees Dr. Munoz on anticipated right TKA; had it scheduled for April but cancelled due to left knee issues. PT-OP-C Subjective Start: 05/12/24 08:12 Freq: Status: Active Protocol: Document 06/30/24 09:03 SP (Rec: 06/30/24 09:48 SP [id number]) OP-PT Subjective Patient Comments Patient Comments Pt reports got her long leg compression socks, wears leggings over them, was able to get do some squatting to help out friend put together slow coffee table. PT-OP-G Mobility & Gait Start: 05/12/24 08:12 Freq: Status: Active Protocol: Document 05/12/24 09:44 SAK (Rec: 05/12/24 15:19 SAK [id number]) OP Mobility Evaluation Transfers Sit to Stand indep but with dec weightbearing left LE Car Transfers painful Floor Transfers painful OP Gait Assessment Gait Gait Assistance Required: Independent Assistive Devices Assistive Device None Gait Deviations General Gait Pattern Antalgic Factors Limiting Gait Function Factors Limiting Gait Function Decreased Strength,Pain Stair Climbing Evaluation Evaluation Level of Assist On Stairs Independent Technique/Endurance Stair Climbing Technique Step to Step Stair Climbing Set # Repetitions (reps) 4 PT-OP-H Neuro Start: 05/12/24 08:12 Freq: Status: Active Protocol: Document 05/12/24 09:44 SAK (Rec: 05/12/24 15:19 SAK [id number]) Sensation Evaluation Gross Sensation Gross Sensation WNL PT-OP-J Posture/Palpation/Skin Start: 05/12/24 08:12 Freq: Status: Active Protocol: Document 05/12/24 09:44 SAK (Rec: 05/12/24 10:33 SAK [id number]) Posture Evaluation Position Standing Pelvis Posture Anteriorly Tilted Weight Distribution Weight Shifted Right Hip Posture (L) Internally Rotated,(R) Internally Rotated Knee Posture (R) Neutral,(L) Genu Valgus Patellar Posture (L) Laterally Tilted Ankle/Foot Posture (L) Pronated,(L) Forefoot Eversion Foot Arch (L) Medium Arch,(R) Medium Arch Palpation Assessment Location posterior knee Palpation Findings Edema,Tenderness knee joint line left Palpation Findings Edema,Tenderness Skin Assessment Edema Assessment left knee Edema Type Non-Pitting Edema Degree 2+ Edema Appearance Puffy Subjective Edema Description Tightness PT-OP-K Range of Motion Start: 05/12/24 08:12 Freq: Status: Active Protocol: Document 06/30/24 09:03 SP (Rec: 10/28/24 09:48 SP [id number]) Knee Goniometric Range of Motion Knee Left Knee ROM WFL No Flexion Active (degrees) 121 Flexion Passive (degrees) 122 Extension Active (degrees) 0 Comments passive relaxed 1 deg extension, TKE 0deg PT-OP-M Strength Start: 05/12/24 08:12 Freq: Status: Active Protocol: Document 05/12/24 09:44 SAK (Rec: 05/12/24 15:19 SAK [id number]) Hip Strength Hip Manual Muscle Testing Left Flexion (L2) 4- Good- Extension (S1) 4- Good- Abduction 4- Good- Adduction 4- Good- External Rotation 4- Good- Internal Rotation 4 Good Right Flexion (L2) 4- Good- Extension (S1) 4- Good- Abduction 4- Good- Adduction 4 Good External Rotation 4- Good- Internal Rotation 4 Good Knee Strength Knee Manual Muscle Testing Left Flexion (S2) 4- Good- Extension (L3) 4 Good Right Flexion (S2) 4+ Good+ Extension (L3) 4+ Good+ Ankle/Foot Strength Ankle and Foot Manual Muscle Testing ev Dorsiflexion (L4) 5 Normal Plantarflexion (S1) 5 Normal PT-OP-Q Treatments Start: 05/12/24 08:12 Freq: Status: Active Protocol: Document 06/30/24 09:03 SP (Rec: 06/30/24 09:48 SP [id number]) Cardio Equipment Recumbent Bicycle Duration (Minutes) 6 Resistance 6 Seat Position 4 Other 44-47 RPMs Gym Equipment Shuttle Recovery Unilateral Squats Details improved knee alignment and heel down Resistance 50# (1 navy 1 teal) Reps/Time 20 reps approx 90 deg flexion Bilateral Squats Details good knee alignment, good stretch deep squat 118 deg Resistance 62#>75# (3 navy) Reps/Time x20 Therapeutic Exercises Standing Exercises lunges Standing Exercise Name trialed inPT post manual- added to HEP declined HO Side bilateral Resistance AROM- rail suppport Equipment Used foam cushion front back leg- for knee flexion target Reps/Minutes 10 reps, 5 reps Comments cued for ft knee behind forefoot, back knee bend into flexion- pnfree repor calf raises & eccentric stretch Standing Exercise Name HEP Equipment Used bottom step Reps/Minutes 10 reps, pause stretch step down Standing Exercise Name post manual- fwd Side bilateral Resistance AROM 1 rail supported Equipment Used 4 step Reps/Minutes 10 reps each Comments no pain with proper knee/trunk alignment step-up Standing Exercise Name lateral Side left Equipment Used 6 step, light UE support required Reps/Minutes 1 rep L- unable to do- tired after other Comments stopped today, ok fwd down Manual Therapy Treatment Consent Patient gave verbal consent for manual Yes treatment Soft Tissue Mobilization L patellar tendon Body Location Patellar tendon & distal quad Mobilization Type Cross-Friction Comments manual /c ed self use of tool friction patellar tendon into flexion AROM more than extension positioning. Improved less tension response Joint Mobilizations L knee Joint patella, Tibfemoral Direction med/lat/ sup/inf; A<>P Grade II Body Position Hooklying Comments pnfree response gentle glides, PT-OP-R Modalities Start: 05/12/24 08:12 Freq: Status: Active Protocol: Document 05/22/24 11:17 SAK (Rec: 05/22/24 12:22 SAK [id number]) Electric Stimulation Electric Stimulation Interferential Current (IFC) Body Location left knee Intensity 18 Target/Sweep Sweep Combined With Heat/Cold Cold Pack Comments large ice pack on top and small under knee PT-OP-T Assessment and Plan Start: 05/12/24 08:12 Freq: Status: Active Protocol: Document 06/30/24 09:03 SP (Rec: 06/30/24 09:48 SP [id number]) Physical Therapy Assessment Goals One Impairment left knee pain as high as 7/10 limiting activities Short Term Goal (STG) Patient will be able to move sit to stand and sleep with minimal to no left knee pain 06/30/24: progressing 1/10- still feel it when move wrong in bed, twinges (no support sleeping), in/out without pain though STG Duration 06/17/24 progressing 06/30/24 Assisted Goal (LTG) Patient will be able to resume taking walks and playing pickleball with minimal to no pain 06/30/24:GOAL MET: walking 1-3 miles 2 days /week when not at gym, but still not getting off fast to short served balls , no pain. LTG Duration 08/11/24 GOAL MET 06/30/24 Three Impairment LEFS(lower extremity functional scale) 38% Impairment Loss of core stability with MMT of LE's and hip AB is 3/5 bilaterally. Short Term Goal (STG) Improve LEFS score to at least 55% as measure of improved activity tolerance and left knee function 06/23/24: score 69%, goal met STG Duration 06/17/24 Assault Amphibious Vehicle Crewman Goal (LTG) Improve LEFS score to at least 75% as measure of improved activity tolerance and left knee function. 06/23/24: goal progress 69% LTG Duration 08/11/24 Two Impairment weakness left knee and hip, dec quad flexibility left Impairment SHELLEY score is 32/100, (16/50), 20-39% impaired of score 20-39 Short Term Goal (STG) Patient will be instructed in individualized, progressive HEP for the purposes of strengthening and flexibility. 06/23/24: goal met STG Duration goal met Assault Amphibious Vehicle Crewman Goal (LTG) Patient will be independent and compliant with HEP and test 5/5 muscle strength left knee and hip and flexibility left quadriceps WNL. 06/27/24: added self tool patellar tendon STMs, prone quad stretch /c strap L>R LTG Duration 08/11/24 progressing 06/27/24 Assessment Summary Assessment Pt making gains in L knee AROM and reports able to bend better and do deeper squatting . REports improved mobility after manual and stretching and pnfree during initiated lunges for HEP and fwd step down supported, declined HOs for home HEP. Physical Therapy Plan Frequency and Duration Frequency of Treatment 2x/Week Duration of treatment (weeks) 12 Plan of Care Start Date 05/12/24 Plan of Care End Date 08/11/24 Therapeutic Interventions Therapeutic Interventions Home Exercise Program,Manual Therapy,Patient/Caregiver Education,Self-Care/Home Management,Soft Tissue Mobilization,Taping, Therapeutic Activities, Therapeutic Exercises Modalities Cold Pack/Ice Massage,Electric Stimulation,Hot Packs Next Visit Focus/Plan Next Note Type Treatment Note Next Visit Plan Recheck fwd step down and lunges. POC: progress descending gait on stairs as tolerated.
--- NOTE | 2024-07-04 09:00 | PT.OTN ---
Current Diagnoses Pain in left knee (07/04/24) Soft tissue disorder, unspecified (07/04/24) Difficulty in walking, not elsewhere classified (07/04/24) Weakness (07/04/24) Edema, unspecified (07/04/24) Presence of left artificial knee joint (07/04/24) Physical Therapy Treatment Note PT-OP-A Visit Information Start: 05/12/24 08:12 Freq: Status: Active Protocol: Document 07/04/24 08:19 SP (Rec: 07/04/24 09:03 SP [id number]) Out-Patient Physical Therapy Visit Information Visit Information Visit Type Treatment Note Visit Note 12/11 post eval Visit Start Time 08:19 Visit Stop Time 09:00 Visit Number 11 (12/11 after PN) Number of PROFESSOR OF FAMILY MEDICINE Visits 3 PT-OP-B Current Condition Start: 05/12/24 08:12 Freq: Status: Active Protocol: Document 06/24/24 08:55 SAK (Rec: 06/24/24 09:49 SAK [id number]) Current Condition History of Current Condition Onset Date 09/05/23 Current Complaints left knee pain History of Current Condition left TKA by Dr. Munoz, had PT for 3 months. Walked with a walker for a week or two, no longer using a device. Pain is constant, including with sleeping, getting in and out of cars. No N/T or giving way. Has some popping. States she feels like her kneecap is the worst part. Has tried wearing a brace with struts on the side, has tried several. Wears compression stockings due to old ankle injury. States PT after surgery tried KT tape 1x, otherwise. Pain is really bad if tries to do bicyce, and lifting leg while laying on her side. Does stretching of hamstrings and calves, not quads. First step in playing pickle ball feels challenging. At night pain is constant and dull, getting up from set sharp pain in back of knee. Can't do hamstring curl at gym due to pain. Wore thigh high compression stockings right after surgery. Future Testing and Treatments Planned Sees Dr. Munoz on anticipated right TKA; had it scheduled for April but cancelled due to left knee issues. PT-OP-C Subjective Start: 05/12/24 08:12 Freq: Status: Active Protocol: Document 07/04/24 08:19 SP (Rec: 07/04/24 09:03 SP [id number]) OP-PT Subjective Patient Comments Patient Comments Pt reports I am doing really well, no pain with activities but tightness with deeper bending. Is able to almost all activities like gym work out (squat 40# bar [place], bench press, leg press 70 lbs, abd/ add machine 60lbs, chest press , bicep/tricep curl, floor: plank, LTR cool down, 1 mile on elliptical 12 hill at 5 resistanc) 1.5 hrs. 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 Receprocal stepping ascending fine but descending L knee catches and don't trust it due to other R knee don't trust it because is a bad knee. She states still discomfort if touch over patellar tendon area and warm to touch irritation L knee. PT-OP-G Mobility & Gait Start: 05/12/24 08:12 Freq: Status: Active Protocol: Document 05/12/24 09:44 [facility] (Rec: 05/12/24 15:19 [facility] [id number]) OP Mobility Evaluation Transfers Sit to Stand indep but with dec weightbearing left LE Car Transfers painful Floor Transfers painful OP Gait Assessment Gait Gait Assistance Required: Independent Assistive Devices Assistive Device None Gait Deviations General Gait Pattern Antalgic Factors Limiting Gait Function Factors Limiting Gait Function Decreased Strength,Pain Stair Climbing Evaluation Evaluation Level of Assist On Stairs Independent Technique/Endurance Stair Climbing Technique Step to Step Stair Climbing Set # Repetitions (reps) 4 PT-OP-H Neuro Start: 05/12/24 08:12 Freq: Status: Active Protocol: Document 05/12/24 09:44 SAK (Rec: 05/12/24 15:19 SAK [id number]) Sensation Evaluation Gross Sensation Gross Sensation WNL PT-OP-J Posture/Palpation/Skin Start: 05/12/24 08:12 Freq: Status: Active Protocol: Document 05/12/24 09:44 SAK (Rec: 05/12/24 10:33 SAK [id number]) Posture Evaluation Position Standing Pelvis Posture Anteriorly Tilted Weight Distribution Weight Shifted Right Hip Posture (L) Internally Rotated,(R) Internally Rotated Knee Posture (R) Neutral,(L) Genu Valgus Patellar Posture (L) Laterally Tilted Ankle/Foot Posture (L) Pronated,(L) Forefoot Eversion Foot Arch (L) Medium Arch,(R) Medium Arch Palpation Assessment Location posterior knee Palpation Findings Edema,Tenderness knee joint line left Palpation Findings Edema,Tenderness Skin Assessment Edema Assessment left knee Edema Type Non-Pitting Edema Degree 2+ Edema Appearance Puffy Subjective Edema Description Tightness PT-OP-K Range of Motion Start: 05/12/24 08:12 Freq: Status: Active Protocol: Document 06/30/24 09:03 SP (Rec: 06/30/24 09:48 SP [id number]) Knee Goniometric Range of Motion Knee Left Knee ROM WFL No Flexion Active (degrees) 121 Flexion Passive (degrees) 122 Extension Active (degrees) 0 Comments passive relaxed 1 deg extension, TKE 0deg PT-OP-M Strength Start: 05/12/24 08:12 Freq: Status: Active Protocol: Document 05/12/24 09:44 SAK (Rec: 05/12/24 15:19 SAK [id number]) Hip Strength Hip Manual Muscle Testing Left Flexion (L2) 4- Good- Extension (S1) 4- Good- Abduction 4- Good- Adduction 4- Good- External Rotation 4- Good- Internal Rotation 4 Good Right Flexion (L2) 4- Good- Extension (S1) 4- Good- Abduction 4- Good- Adduction 4 Good External Rotation 4- Good- Internal Rotation 4 Good Knee Strength Knee Manual Muscle Testing Left Flexion (S2) 4- Good- Extension (L3) 4 Good Right Flexion (S2) 4+ Good+ Extension (L3) 4+ Good+ Ankle/Foot Strength Ankle and Foot Manual Muscle Testing ev Dorsiflexion (L4) 5 Normal Plantarflexion (S1) 5 Normal PT-OP-Q Treatments Start: 05/12/24 08:12 Freq: Status: Active Protocol: Document 07/04/24 08:19 SP (Rec: 07/04/24 09:03 SP [id number]) Cardio Equipment Recumbent Bicycle Duration (Minutes) 8 Resistance 6 Seat Position 4 Other 44-47 RPMs Gym Equipment Shuttle Recovery Unilateral Squats Details Good understanding mid range quad vs deeper distal quad tension strain Resistance 50# (1 navy, 1 teal) Reps/Time 20 reps approx 120 deg flexion (check end feel range) Bilateral Squats Details good knee alignment, good stretch deep squat 118 deg Resistance 75# (3 navy) Reps/Time x20 Therapeutic Exercises Standing Exercises lunges Side bilateral Resistance AROM- rail suppport Equipment Used foam cushion front back leg- for knee flexion target Reps/Minutes 10 reps, 5 reps Comments cued for ft knee behind forefoot, back knee bend into flexion- pnfree repor step down Standing Exercise Name fwd Side bilateral Resistance AROM 1 rail supported Equipment Used 4 step L, 6 step R Reps/Minutes 10 reps each Comments no pain with proper knee/trunk alignment, dec tension post manual knee mobility on step Side left Equipment Used 16 box Comments post manual step-up Standing Exercise Name fwd BOSU rail light support single leg Side left Reps/Minutes x10 Comments cued ankle stability positioning, TKE and glut fac into ext gastroc stretch Standing Exercise Name gastroc & soleus stretch Side left Reps/Minutes 30 hold each, eccentric calf stretch mobility x5 reps Comments post manual Manual Therapy Treatment Consent Patient gave verbal consent for manual Yes treatment Soft Tissue Mobilization L gastroc Body Location medial>lateral distal tendon Mobilization Type Cross-Friction,Rolling Intensity/Depth Moderate Body Position Sitting Comments good feedback response lessening tension L patellar tendon Body Location Patellar tendon & distal quad Mobilization Type Cross-Friction Comments manual between ex, improved L knee flexion response step down fwd. L quad, ITB Body Location L distal quad Mobilization Type Myofascial Release,Strumming Intensity/Depth Moderate PT-OP-R Modalities Start: 05/12/24 08:12 Freq: Status: Active Protocol: Document 05/22/24 11:17 SAK (Rec: 05/22/24 12:22 SAK [id number]) Electric Stimulation Electric Stimulation Interferential Current (IFC) Body Location left knee Intensity 18 Target/Sweep Sweep Combined With Heat/Cold Cold Pack Comments large ice pack on top and small under knee PT-OP-T Assessment and Plan Start: 05/12/24 08:12 Freq: Status: Active Protocol: Document 07/04/24 08:19 SP (Rec: 07/04/24 09:03 SP [id number]) Physical Therapy Assessment Goals One Impairment left knee pain as high as 7/10 limiting activities Short Term Goal (STG) Patient will be able to move sit to stand and sleep with minimal to no left knee pain 06/30/24: progressing 1/10- still feel it when move wrong in bed, twinges (no support sleeping), in/out without pain though STG Duration 06/17/24 progressing 06/30/24 Penitentiary Goal (LTG) Patient will be able to resume taking walks and playing pickleball with minimal to no pain 06/30/24:GOAL MET: walking 1-3 miles 2 days /week when not at gym, but still not getting off fast to short served balls , no pain. LTG Duration 08/11/24 GOAL MET 06/30/24 Three Impairment LEFS(lower extremity functional scale) 38% Impairment Loss of core stability with MMT of LE's and hip AB is 3/5 bilaterally. Short Term Goal (STG) Improve LEFS score to at least 55% as measure of improved activity tolerance and left knee function 06/23/24: score 69%, goal met STG Duration 06/17/24 Artificial Breeding Distributor Goal (LTG) Improve LEFS score to at least 75% as measure of improved activity tolerance and left knee function. 06/23/24: goal progress 69% LTG Duration 08/11/24 Two Impairment weakness left knee and hip, dec quad flexibility left Impairment SHELLEY score is 32/100, (16/50), 20-39% impaired of score 20-39 Short Term Goal (STG) Patient will be instructed in individualized, progressive HEP for the purposes of strengthening and flexibility. 06/23/24: goal met STG Duration goal met Penitentiary Goal (LTG) Patient will be independent and compliant with HEP and test 5/5 muscle strength left knee and hip and flexibility left quadriceps WNL. 06/27/24: added self tool patellar tendon STMs, prone quad stretch /c strap L>R LTG Duration 08/11/24 progressing 06/27/24 Assessment Summary Assessment Pt improved L knee AROM post manual and ed self STMs, instruction knee mobility, calf stretch, was able to perform front step downs 4 step without pain UE 1 light touch and 6 step with tension but not pain UE light supported. Pt reports is incorporating more self gym activities, in PT will wants to progress descend L knee ROM for stairs and down hill walking pnfree without UE support. Physical Therapy Plan Frequency and Duration Frequency of Treatment 2x/Week Duration of treatment (weeks) 12 Plan of Care Start Date 05/12/24 Plan of Care End Date 08/11/24 Therapeutic Interventions Therapeutic Interventions Home Exercise Program,Manual Therapy,Patient/Caregiver Education,Self-Care/Home Management,Soft Tissue Mobilization,Taping, Therapeutic Activities, Therapeutic Exercises Modalities Cold Pack/Ice Massage,Electric Stimulation,Hot Packs Next Visit Focus/Plan Next Note Type Treatment Note Next Visit Plan Recheck fwd step down and lunges. POC: progress descending gait on stairs as tolerated.
--- NOTE | 2024-07-10 08:58 | PT.OTN ---
Current Diagnoses Pain in left knee (07/10/24) Soft tissue disorder, unspecified (07/10/24) Difficulty in walking, not elsewhere classified (07/10/24) Weakness (07/10/24) Edema, unspecified (07/10/24) Presence of left artificial knee joint (07/10/24) Physical Therapy Treatment Note PT-OP-A Visit Information Start: 05/12/24 08:12 Freq: Status: Active Protocol: Document 07/10/24 08:11 SAK (Rec: 07/10/24 08:58 [facility] [id number]) Out-Patient Physical Therapy Visit Information Visit Information Visit Type Treatment Note Visit Note 01/10 post PN Visit Start Time 08:15 Visit Stop Time 05:00 Visit Number 12 Number of MEDICINE ASSISTANT Visits 0 PT-OP-B Current Condition Start: 05/12/24 08:12 Freq: Status: Active Protocol: Document 07/10/24 08:11 SAK (Rec: 07/10/24 08:58 [facility] [id number]) Current Condition History of Current Condition Onset Date 09/05/23 Current Complaints left knee pain History of Current Condition left TKA by Dr. Munoz, had PT for 3 months. Walked with a walker for a week or two, no longer using a device. Pain is constant, including with sleeping, getting in and out of cars. No N/T or giving way. Has some popping. States she feels like her kneecap is the worst part. Has tried wearing a brace with struts on the side, has tried several. Wears compression stockings due to old ankle injury. States PT after surgery tried KT tape 1x, otherwise. Pain is really bad if tries to do bicyce, and lifting leg while laying on her side. Does stretching of hamstrings and calves, not quads. First step in playing pickle ball feels challenging. At night pain is constant and dull, getting up from set sharp pain in back of knee. Can't do hamstring curl at gym due to pain. Wore thigh high compression stockings right after surgery. Future Testing and Treatments Planned Sees Dr. Munoz on anticipated right TKA; had it scheduled for April but cancelled due to left knee issues. PT-OP-C Subjective Start: 05/12/24 08:12 Freq: Status: Active Protocol: Document 07/10/24 08:11 SAK (Rec: 07/10/24 08:58 [facility] [id number]) OP-PT Subjective Patient Comments Patient Comments So happy to be able to do more of what she likes to do. Going down the stairs sideways isn't painful, still painful. When it gets tight uses knobby massager: PT-OP-G Mobility & Gait Start: 05/12/24 08:12 Freq: Status: Active Protocol: Document 05/12/24 09:44 [facility] (Rec: 05/12/24 15:19 [facility] [id number]) OP Mobility Evaluation Transfers Sit to Stand indep but with dec weightbearing left LE Car Transfers painful Floor Transfers painful OP Gait Assessment Gait Gait Assistance Required: Independent Assistive Devices Assistive Device None Gait Deviations General Gait Pattern Antalgic Factors Limiting Gait Function Factors Limiting Gait Function Decreased Strength,Pain Stair Climbing Evaluation Evaluation Level of Assist On Stairs Independent Technique/Endurance Stair Climbing Technique Step to Step Stair Climbing Set # Repetitions (reps) 4 PT-OP-H Neuro Start: 05/12/24 08:12 Freq: Status: Active Protocol: Document 05/12/24 09:44 [facility] (Rec: 05/12/24 15:19 [facility] [id number]) Sensation Evaluation Gross Sensation Gross Sensation WNL PT-OP-J Posture/Palpation/Skin Start: 05/12/24 08:12 Freq: Status: Active Protocol: Document 05/12/24 09:44 [facility] (Rec: 05/12/24 10:33 [facility] [id number]) Posture Evaluation Position Standing Pelvis Posture Anteriorly Tilted Weight Distribution Weight Shifted Right Hip Posture (L) Internally Rotated,(R) Internally Rotated Knee Posture (R) Neutral,(L) Genu Valgus Patellar Posture (L) Laterally Tilted Ankle/Foot Posture (L) Pronated,(L) Forefoot Eversion Foot Arch (L) Medium Arch,(R) Medium Arch Palpation Assessment Location posterior knee Palpation Findings Edema,Tenderness knee joint line left Palpation Findings Edema,Tenderness Skin Assessment Edema Assessment left knee Edema Type Non-Pitting Edema Degree 2+ Edema Appearance Puffy Subjective Edema Description Tightness PT-OP-K Range of Motion Start: 05/12/24 08:12 Freq: Status: Active Protocol: Document 06/30/24 09:03 SP (Rec: 06/30/24 09:48 SP [id number]) Knee Goniometric Range of Motion Knee Left Knee ROM WFL No Flexion Active (degrees) 121 Flexion Passive (degrees) 122 Extension Active (degrees) 0 Comments passive relaxed 1 deg extension, TKE 0deg PT-OP-M Strength Start: 05/12/24 08:12 Freq: Status: Active Protocol: Document 05/12/24 09:44 [facility] (Rec: 05/12/24 15:19 [facility] [id number]) Hip Strength Hip Manual Muscle Testing Left Flexion (L2) 4- Good- Extension (S1) 4- Good- Abduction 4- Good- Adduction 4- Good- External Rotation 4- Good- Internal Rotation 4 Good Right Flexion (L2) 4- Good- Extension (S1) 4- Good- Abduction 4- Good- Adduction 4 Good External Rotation 4- Good- Internal Rotation 4 Good Knee Strength Knee Manual Muscle Testing Left Flexion (S2) 4- Good- Extension (L3) 4 Good Right Flexion (S2) 4+ Good+ Extension (L3) 4+ Good+ Ankle/Foot Strength Ankle and Foot Manual Muscle Testing ev Dorsiflexion (L4) 5 Normal Plantarflexion (S1) 5 Normal PT-OP-Q Treatments Start: 05/12/24 08:12 Freq: Status: Active Protocol: Document 07/10/24 08:11 [facility] (Rec: 07/10/24 08:58 [facility] [id number]) Cardio Equipment Recumbent Bicycle Duration (Minutes) 8 Resistance 7-10 Seat Position 4 Other 44-47 RPMs Gym Equipment Shuttle Recovery Unilateral Squats Details Good understanding mid range quad vs deeper distal quad tension strain Resistance 50# (1 navy, 1 teal) Reps/Time 20 reps approx 120 deg flexion (check end feel range) Bilateral Squats Details good knee alignment, good stretch deep squat 118 deg Resistance 75# (3 navy) Reps/Time x20 Therapeutic Exercises Standing Exercises lunges Side bilateral Resistance AROM- rail suppport Equipment Used foam cushion front back leg- for knee flexion target Reps/Minutes 10 reps, 5 reps Comments cued for ft knee behind forefoot, back knee bend into flexion- pnfree repor step down Standing Exercise Name fwd Side bilateral Resistance AROM 1 rail supported Equipment Used 4 step L, 6 step R Reps/Minutes 10 reps each Comments no pain with proper knee/trunk alignment, dec tension post manual gastroc stretch Standing Exercise Name gastroc & soleus stretch Side left Reps/Minutes 30 hold each, eccentric calf stretch mobility x5 reps Manual Therapy Treatment Soft Tissue Mobilization L gastroc Body Location medial>lateral distal tendon Mobilization Type Cross-Friction,Rolling Intensity/Depth Moderate Body Position Sitting Comments good feedback response lessening tension L patellar tendon Body Location Patellar tendon & distal quad Mobilization Type Cross-Friction Comments manual between ex, improved L knee flexion response step down fwd. L quad, ITB Body Location L distal quad Mobilization Type Myofascial Release,Strumming Intensity/Depth Moderate Taping left knee Body Location IT band Type of Tape Kinesio Tape Skin Inspection intact Comments skin cleaned with rubbing alcohol, Biofreeze applied. I strip along IT band and x at lateral knee joint line. PT-OP-R Modalities Start: 05/12/24 08:12 Freq: Status: Active Protocol: Document 05/22/24 11:17 [facility] (Rec: 05/22/24 12:22 [facility] [id number]) Electric Stimulation Electric Stimulation Interferential Current (IFC) Body Location left knee Intensity 18 Target/Sweep Sweep Combined With Heat/Cold Cold Pack Comments large ice pack on top and small under knee PT-OP-T Assessment and Plan Start: 05/12/24 08:12 Freq: Status: Active Protocol: Document 07/10/24 08:11 [facility] (Rec: 07/10/24 08:58 [facility] [id number]) Physical Therapy Assessment Goals One Impairment left knee pain as high as 7/10 limiting activities Short Term Goal (STG) Patient will be able to move sit to stand and sleep with minimal to no left knee pain 06/30/24: progressing 1/10- still feel it when move wrong in bed, twinges (no support sleeping), in/out without pain though STG Duration 06/17/24 progressing 06/30/24 Half-Way Goal (LTG) Patient will be able to resume taking walks and playing pickleball with minimal to no pain 06/30/24:GOAL MET: walking 1-3 miles 2 days /week when not at gym, but still not getting off fast to short served balls , no pain. LTG Duration 08/11/24 GOAL MET 06/30/24 Three Impairment LEFS(lower extremity functional scale) 38% Impairment Loss of core stability with MMT of LE's and hip AB is 3/5 bilaterally. Short Term Goal (STG) Improve LEFS score to at least 55% as measure of improved activity tolerance and left knee function 06/23/24: score 69%, goal met STG Duration 06/17/24 Senior Manager Goal (LTG) Improve LEFS score to at least 75% as measure of improved activity tolerance and left knee function. 06/23/24: goal progress 69% LTG Duration 08/11/24 Two Impairment weakness left knee and hip, dec quad flexibility left Impairment SHELLEY score is 32/100, (16/50), 20-39% impaired of score 20-39 Short Term Goal (STG) Patient will be instructed in individualized, progressive HEP for the purposes of strengthening and flexibility. 06/23/24: goal met STG Duration goal met Half-Way Goal (LTG) Patient will be independent and compliant with HEP and test 5/5 muscle strength left knee and hip and flexibility left quadriceps WNL. 06/27/24: added self tool patellar tendon STMs, prone quad stretch /c strap L>R LTG Duration 08/11/24 progressing 06/27/24 Progress Towards Goals Progress Towards Goals Progressing Toward Goals,Goals Met Assessment Summary Assessment Goals met. Patient able to ascend and descend stairs 4 without pain after manual and KT tape today. Discomfort but mild with 6 stairs. Patient will be having right TKA in September and plans return to PT for rehab after that surgery. Physical Therapy Plan Frequency and Duration Frequency of Treatment 2x/Week Duration of treatment (weeks) 12 Plan of Care Start Date 05/12/24 Plan of Care End Date 08/11/24 Therapeutic Interventions Therapeutic Interventions Home Exercise Program,Manual Therapy,Patient/Caregiver Education,Self-Care/Home Management,Soft Tissue Mobilization,Taping, Therapeutic Activities, Therapeutic Exercises Modalities Cold Pack/Ice Massage,Electric Stimulation,Hot Packs Discharge Physical Therapy Discharge Reasons Goals Met
== END 2024-07-14 14:32 | disposition home or self-care (01) ==
LOC: PHYS 08:15
PROVIDERS: Family Provider Family Medicine; PCP Family Medicine; Referring Provider Orthopaedic Surgery; Visit Provider Orthopaedic Surgery
DX: Z96.652 Presence of left artificial knee joint (principal); M25.562 Pain in left knee; R26.2 Difficulty in walking, not elsewhere classified; R60.9 Edema, unspecified; R53.1 Weakness; M79.9 Soft tissue disorder, unspecified
CPT/HCPCS: 97014; 97110; 97116; 97140; 97162; 97535; G0283

== ENCOUNTER → 2024-07-24 16:31 | Outpatient (CLI) | payer MEDICARE, OTHER, SELFPAY ==
[2024-07-24 17:38] LABS: Add Manual Diff / Slide Review NO; Basophils Absolute Auto 100 /uL (0-100); Basophils Percent Auto 1.2 % (0-2); Eosinophils Absolute Auto 400 /uL (0-450); Eosinophils Percent Auto 5.3 % (2-4); Hematocrit 35.2 % (36-46); Hemoglobin 11.6 g/dL (12.0-16.0); Lymphocytes Absolute Auto 2300 /uL (1100-4500); Lymphocytes Percent Auto 35.4 % (25-40); Mean Corpuscular HGB Conc 32.8 % (30-36); Mean Corpuscular Volume 91.3 fL (80-100); Monocytes Absolute Auto 500 /uL (0-900); Monocytes Percent Auto 7.8 % (3-14); Neutrophils Absolute Auto 3300 /uL (1500-7000); Neutrophils Percent Auto 50.3 % (50-75); Platelet Count 254 X10^3/uL (150-400); Red Blood Cell Count 3.86 X10^6/uL (4.0-5.2); Red Cell Distribution Width 14.5 % (11.6-14.8); White Blood Cell Count 6.6 X10^3/uL (4.5-11.0)
== END ==
LOC: LAB 16:32
PROVIDERS: Family Provider Family Medicine; PCP Family Medicine; Referring Provider Physician Assistant; Visit Provider Physician Assistant
DX: D64.9 Anemia, unspecified (principal)
CPT/HCPCS: 36415; 85025

== ENCOUNTER → 2024-08-09 09:32 | Outpatient (CLI) | payer MEDICARE, OTHER, SELFPAY ==
[2024-08-09 11:01] LABS: Add Manual Diff / Slide Review NO; Basophils Absolute Auto 100 /uL (0-100); Basophils Percent Auto 1.4 % (0-2); Eosinophils Absolute Auto 200 /uL (0-450); Eosinophils Percent Auto 4.5 % (2-4); Hematocrit 37.4 % (36-46); Hemoglobin 12.4 g/dL (12.0-16.0); Lymphocytes Absolute Auto 1800 /uL (1100-4500); Lymphocytes Percent Auto 35.2 % (25-40); Mean Corpuscular HGB Conc 33.1 % (30-36); Mean Corpuscular Hemoglobin 30.3 PG (26-34); Mean Corpuscular Volume 91.8 fL (80-100); Monocytes Absolute Auto 400 /uL (0-900); Monocytes Percent Auto 7.5 % (3-14); Neutrophils Absolute Auto 2600 /uL (1500-7000); Neutrophils Percent Auto 51.4 % (50-75); Platelet Count 275 X10^3/uL (150-400); Red Blood Cell Count 4.07 X10^6/uL (4.0-5.2); Red Cell Distribution Width 14.7 % (11.6-14.8); White Blood Cell Count 5.1 X10^3/uL (4.5-11.0)
[2024-08-09 11:07] LABS: Hemoglobin A1C% w Est Avg Glu 5.3 % (4.0-6.0)
[2024-08-09 11:16] LABS: HEMOLYSIS < 15 (0-50); Iron 86 ug/dL (37-170)
[2024-08-09 11:17] LABS: BUN Creatinine Ratio 27.1 (6-22); Blood Urea Nitrogen 23 mg/dL (7-17); Calcium 10.1 mg/dL (8.4-10.2); Carbon Dioxide 27 mmol/L (22-32); Chloride 107 mmol/L (98-107); Estimated Glomerular Filt Rate > 60 mL/min (>60); Glucose 108 mg/dL (80-110); Potassium 4.7 mmol/L (3.4-5.1); Sodium 139 mmol/L (137-145)
[2024-08-09 11:18] LABS: HEMOLYSIS < 15 (0-50)
[2024-08-09 11:27] LABS: Percent Iron Saturation 36 % (15-50); Total Iron Binding Capacity 242 ug/dL (265-497); Transferrin 240 mg/dL (206-381)
[2024-08-09 18:08] LABS: Ferritin 51 ng/mL (11-264)
== END ==
PROVIDERS: Physician Assistant; Family Provider Family Medicine; PCP Family Medicine; Referring Provider Orthopaedic Surgery Foot and Ankle Surgery; Visit Provider Orthopaedic Surgery Foot and Ankle Surgery
DX: Z01.812 Encounter for preprocedural laboratory examination (principal); D64.9 Anemia, unspecified; R73.9 Hyperglycemia, unspecified
CPT/HCPCS: 36415; 80048; 82728; 83036; 83540; 83550; 85025

== ENCOUNTER → 2025-04-09 07:30 | Outpatient (CLI) | payer MEDICARE, OTHER, SELFPAY ==
[2025-04-09 08:19] LABS: Add Manual Diff / Slide Review NO; Hematocrit 37.4 % (36-46); Hemoglobin 12.7 g/dL (12.0-16.0); Lymphocytes Absolute Auto 1600 /uL (1100-4500); Mean Corpuscular HGB Conc 33.9 % (30-36); Mean Corpuscular Hemoglobin 30.6 PG (26-34); Mean Corpuscular Volume 90.3 fL (80-100); Platelet Count 236 X10^3/uL (150-400)
[2025-04-09 08:48] LABS: Alanine Aminotransferase 21 IU/L (<35); Albumin 4.0 g/dL (3.5-5.0); Albumin Globulin Ratio 1.6 (1.0-2.8); Alkaline Phosphatase 71 U/L (38-126); Blood Urea Nitrogen 16 mg/dL (7-17); Calcium 9.6 mg/dL (8.4-10.2); Carbon Dioxide 27 mmol/L (22-32); Chloride 105 mmol/L (98-107); Cholesterol 247 mg/dL (140-199); Estimated Glomerular Filt Rate > 60 mL/min (>60); Globulin 2.5 g/dL (1.7-4.1); Glucose 101 mg/dL (70-99); HDL Cholesterol 106 mg/dL (40-60); HEMOLYSIS < 15 (0-50); Potassium 4.2 mmol/L (3.4-5.1); Sodium 138 mmol/L (137-145); Total Protein 6.5 g/dL (6.3-8.2); Triglycerides 74 mg/dL (35-150)
[2025-04-09 09:15] LABS: TSH w/ Reflex to FT4 1.00 uIU/mL (0.47-4.68)
[2025-04-09 11:02] LABS: Microalbumi Creatinin Ratio Ur 6.0 ug/mg CR (<30)
== END ==
LOC: LAB 07:31
PROVIDERS: Family Provider Family Medicine; PCP Family Medicine; Referring Provider Family Medicine; Visit Provider Family Medicine
DX: D64.89 Other specified anemias (principal); E03.8 Other specified hypothyroidism; E78.2 Mixed hyperlipidemia; K21.9 Gastro-esophageal reflux disease without esophagitis; I87.2 Venous insufficiency (chronic) (peripheral); M17.11 Unilateral primary osteoarthritis, right knee
CPT/HCPCS: 36415; 80053; 80061; 82043; 82172; 82570; 84443; 85025

== ENCOUNTER → 2025-04-09 12:37 | Outpatient (CLI) | payer MEDICARE, OTHER, SELFPAY | LOC: LAB 12:38 | PROVIDERS: Family Provider Family Medicine; PCP Family Medicine; Referring Provider Family Medicine; Visit Provider Family Medicine | DX: Z12.11 Encounter for screening for malignant neoplasm of colon (principal); D64.89 Other specified anemias; E03.8 Other specified hypothyroidism; E78.2 Mixed hyperlipidemia; K21.9 Gastro-esophageal reflux disease without esophagitis; I87.2 Venous insufficiency (chronic) (peripheral); M17.11 Unilateral primary osteoarthritis, right knee | CPT/HCPCS: 36415; 80053; 80061; 82043; 82172; 82274; 82570; 84443; 85025 ==

== ENCOUNTER → 2025-04-13 15:04 | Outpatient (CLI) | payer MEDICARE, OTHER, SELFPAY ==
--- NOTE | 2025-04-13 15:06 | DI.MG.S_ITS ---
MM screening mammo BI: 04/13/2025. BI-RADS: 1 CLINICAL: 74-year old female for bilateral screening mammogram. Tyrer-Cuzick lifetime risk of 4.0%. Current reported family history of breast cancer: sister. The patient had a prior right breast biopsy. PRIOR EXAMS 06/12/2022, 05/25/2022, 02/03/2020. MAMMOGRAPHY TECHNIQUE: 2D and 3D (tomosynthesis) digital mammographic views obtained, with additional images as needed for full coverage. Current study was also evaluated with a Computer Aided Detection (CAD) system. DENSITY B. There are scattered areas of fibroglandular density. MAMMOGRAPHY FINDINGS Bilateral: No suspicious mass, asymmetry, microcalcification, or other abnormality seen. IMPRESSION: * No evidence of malignancy. RECOMMENDATIONS Bilateral * Annual screening mammography. OVERALL ASSESSMENT CATEGORY BI-RADS-1: Negative. The [employer] recommends annual screening mammography beginning at age 40 for women with average risk of breast cancer. ELECTRONICALLY SIGNED: Julio Lloyd M.D. on 04/14/2025 at 10:06:42 AM PT Interpreting Station ID: [id number]
== END ==
LOC: MAMMO 15:05
PROVIDERS: Family Provider Family Medicine; PCP Family Medicine; Referring Provider Family Medicine; Visit Provider Family Medicine
DX: Z12.31 Encounter for screening mammogram for malignant neoplasm of breast (principal); Z80.3 Family history of malignant neoplasm of breast
CPT/HCPCS: 77063; 77067

== ENCOUNTER → 2025-07-06 14:47 | Outpatient (CLI) | payer MEDICARE, OTHER, SELFPAY ==
--- NOTE | 2025-07-06 14:48 | DI.RAD.S_ITS ---
PROCEDURE: XR FOOT LT MIN 3V INDICATIONS: left heel pain TECHNIQUE: 3 views of the foot were acquired. COMPARISON: None. FINDINGS: Bones: 1st distal metatarsal osteotomy with surgical screw. Hardware is intact without hardware fracture or periprosthetic lucency to suggest loosening. Alignment is stable. No visualized fracture or dislocation. Soft tissues: Prominent soft tissue edema the plantar surfaces. IMPRESSION: Prominent plantar soft tissues. This could represent plantar fasciitis and recommend clinical correlation. Dictated by: Geri Mejía M.D. on 07/06/2025 at 16:29 Approved by: Geri Mejía M.D. on 07/06/2025 at 16:30
[2025-07-06 15:54] LABS: Add Manual Diff / Slide Review NO; Hematocrit 37.2 % (36-46); Hemoglobin 12.6 g/dL (12.0-16.0); Lymphocytes Absolute Auto 2000 /uL (1100-4500); Mean Corpuscular HGB Conc 33.9 % (30-36); Mean Corpuscular Hemoglobin 30.6 PG (26-34); Mean Corpuscular Volume 90.2 fL (80-100); Platelet Count 255 X10^3/uL (150-400)
[2025-07-06 16:16] LABS: Alanine Aminotransferase 20 IU/L (<35); Albumin 4.1 g/dL (3.5-5.0); Albumin Globulin Ratio 1.6 (1.0-2.8); Alkaline Phosphatase 70 U/L (38-126); Blood Urea Nitrogen 24 mg/dL (7-17); Calcium 9.4 mg/dL (8.4-10.2); Carbon Dioxide 25 mmol/L (22-32); Chloride 104 mmol/L (98-107); Estimated Glomerular Filt Rate > 60 mL/min (>60); Globulin 2.5 g/dL (1.7-4.1); Glucose 115 mg/dL (70-99); HEMOLYSIS < 15 (0-50); Potassium 4.1 mmol/L (3.4-5.1); Sodium 135 mmol/L (137-145); Total Protein 6.6 g/dL (6.3-8.2); Uric Acid 5.6 mg/dL (2.5-6.2)
== END ==
PROVIDERS: Family Provider Family Medicine; PCP Family Medicine; Referring Provider Family Medicine; Visit Provider Family Medicine
DX: M79.672 Pain in left foot (principal); M72.2 Plantar fascial fibromatosis; M79.89 Other specified soft tissue disorders
CPT/HCPCS: 36415; 73630; 80053; 84550; 85025; 85651; 86140; 86200; 86430

== ENCOUNTER → 2025-07-13 08:44 | Outpatient (CLI) | payer MEDICARE, OTHER, SELFPAY ==
--- NOTE | 2025-07-13 08:53 | EKG_ITS ---
[id number], [place] [address] Test Date: 2025-07-13 Pat Name: Tami Batista Department: [facility] Room: Gender: Female Accessibility Lift Technician: : [id number] Requested By: Order Number: [id number] Reading MD: Christopher Duran MD Measurements Intervals [place] Rate: 63 P: 36 WI: 144 QRS: -10 QRSD: 76 T: 5 QT: 414 QTc: 423 Interpretive Statements Normal sinus rhythm Nonspecific ST abnormality Electronically Signed On 07-13-2025 11:10:58 PST by Christopher Duran MD
== END ==
PROVIDERS: Family Provider Family Medicine; PCP Family Medicine; Referring Provider Orthopaedic Surgery Foot and Ankle Surgery; Visit Provider Orthopaedic Surgery Foot and Ankle Surgery
DX: Z01.818 Encounter for other preprocedural examination (principal)
CPT/HCPCS: 93005